=== PATIENT | female | born 1960 | race Caucasian/White ===

== ENCOUNTER 2017-02-12 09:20 | Day surgery (SDC) | payer OTHER ==
--- NOTE | 2017-02-04 13:49 | HP ---
Admitting History and Physical - Primary Care Physician PCP: Malika Saenz - Admission Chief Complaint: Right axillary sebaceous cyst History of Present Illness: 56 year old postmenapausal female with mutiple medical problems presents with 10 year h/o right axillary mass recently noted by her PCP who ordered an US revealing 3.8x2.4x2.3 cm superficial axillary complex mass. She reports recent tenderness but no fever or chills. Mammogram 03/2016 was negative History Source: Patient Limitations to Obtaining History: No Limitations - Past Medical History Cardiovascular: Yes: HTN, Hyperlipdemia, Other (tricuspid regurgitation) Pulmonary: Yes: Asthma, Pulmonary Embolus (DVT with mutiple PE at [facility] 2016), Sleep Apnea ...LMP: 01/29/14 Heme/Onc: Yes: Anemia Endocrine: Yes: Diabetes Mellitus, Other (obesity) - Past Surgical History Past Surgical History: Yes: - Smoking History Smoking history: Never smoked Have you smoked in the past 12 months: No Aproximately how many cigarettes per day: 0 - Alcohol/Substance Use Hx Alcohol Use: No Home Medications - Allergies Allergies/Adverse Reactions: Allergies Allergy/AdvReac Type Severity Reaction Status Date / Time Penicillins Allergy Hives Verified 07/11/16 11:22 - Home Medications Home Medications: Ambulatory Orders Amlodipine Besylate [Norvasc -] 10 mg PO DAILY 07/11/16 Ammonium Lactate Lotion [Lac-Hydrin 12% Lotion -] 1 applic TP BID 07/11/16 Cholecalciferol (Vitamin D3) [Vitamin D3] 1,000 unit PO DAILY 07/11/16 Fenofibrate Nanocrystallized [Tricor] 145 mg PO DAILY 07/11/16 Ferrous Sulfate [Feosol] 325 mg PO DAILY 07/11/16 Glipizide [Glipizide Xl] 10 mg PO BID 07/11/16 Linagliptin [Tradjenta] 5 mg PO DAILY 07/11/16 Losartan Potassium 100 mg PO DAILY 07/11/16 Metformin HCl [Glucophage -] 850 mg PO TID 07/11/16 Montelukast Na [Singulair -] 10 mg PO HS 07/11/16 Ranitidine [Zantac -] 150 mg PO BID 07/11/16 Sertraline HCl [Zoloft] 100 mg PO DAILY 07/11/16 Simvastatin 40 mg PO DAILY 07/11/16 Trazodone HCl [Desyrel -] 50 mg PO HS 07/11/16 Enoxaparin [Lovenox -] 100 mg SQ BID #360 disp.syrin 07/13/16 Family Disease History - Family Disease History Family History: Denies Physical Examination Constitutional: Yes: Well Nourished Breast(s): Yes: Other (symmetrical no breast masses right axillary sebaceous cyst) Problem List - Problems (1) Sebaceous cyst of right axilla Code(s): L72.3 - SEBACEOUS CYST Assessment/Plan excision of right axillary sebaceous cyst
[2017-02-05 10:42] VITALS: BMI 37.4
[2017-02-12] MEDS ORDERED: LIDOCAINE 1%-EPI 1:100,000 30 ML MDV IJ ONE (11:05)
[2017-02-12] MEDS ORDERED: PROPOFOL 20 ML ONE ×2 (11:50→11:56)
[2017-02-12] MEDS ORDERED: ePHEDrine SULFATE 50 MG/1 ML AMPULE ONE (11:50)
[2017-02-12] MEDS ORDERED: SUCCINYLCHOLINE CHLORIDE 200 MG/10 ML VIAL ONE (11:50)
[2017-02-12] MEDS ORDERED: BUPIVACAINE HCL/PF 2.5 MG/ML - 30 ML VIAL IJ ONE (12:00)
[2017-02-12] MEDS ORDERED: ONDANSETRON 4 MG/2 ML VIAL IVPB PRN (12:27)
[2017-02-12] MEDS ORDERED: KETOROLAC TROMETHAMINE 30 MG/1 ML VIAL IVPUSH PRN (12:27)
[2017-02-12] MEDS ORDERED: DEXTROSE 5%-0.45% SALINE 1,000 ML IV SCH (12:30)
[2017-02-12 12:57] VITALS: TEMP 98.2
[2017-02-12 13:38] VITALS: BP 138/62; PULSE 66
--- NOTE | 2017-02-13 14:11 | OP ---
DATE OF OPERATION: 02/12/2017 PREOPERATIVE DIAGNOSIS: Right axillary sebaceous cyst. POSTOPERATIVE DIAGNOSIS: Right axillary sebaceous cyst. PROCEDURE: Excision of right axillary sebaceous cyst. ANESTHESIA: IV sedation with local. ATTENDING SURGEON: Malika Saenz MD ESTIMATED BLOOD LOSS: Minimal. COMPLICATIONS: None. PROCEDURE: Patient was made aware of the risks and benefits of the procedure and consented. She was placed in a supine position. After IV sedation was administered, the operative site was prepped and draped in the usual sterile fashion. Lidocaine 1% mixed with 0.2% bupivacaine with epinephrine in a 1:1 ratio was used for local anesthesia. An elliptical incision was made around the right axillary cyst using blunt and sharp dissection. Tissues were incised around the sebaceous cyst, which was then submitted for permanent sectioning. The wound was copiously irrigated with normal saline. Hemostasis maintained by electrocautery. The wound was closed with deep 3-0 Vicryl followed by a running subcuticular 4-0 Monocryl. Steri-Strips and a sterile bandage were applied. The patient, having tolerated the procedure well, was transferred to the recovery room in excellent condition. MALIKA SAENZ M.D. [id number]
--- NOTE | 2017-02-15 15:25 | PATH ---
Surgical Pathology Report Patient Name: ZOEY FONTANEZ [facility]. Rec. #: [id number] /Age/Gender: 1960 (Age: 56) / F Account: [id number] Location: [facility] Taken: 02/12/2017 Received: 02/12/2017 Reported: 02/15/2017 Physicians: Malika Saenz M.D. Specimen(s) Received RIGHT AXILLARY SEBACEOS CYST Clinical History Right axillary sebaceous cyst Final Diagnosis SEBACEOUS CYST, RIGHT AXILLA, EXCISION: EPIDERMAL INCLUSION (SEBACEOUS) CYST. Electronically Signed Shelli Disla M.D. Gross Description Received in formalin labeled "right axillary sebaceous cyst," is a 4.0 x 3.8 x 2.7 cm irregular, focally disrupted portion of soft tissue which is partially surfaced by a 4.0 x 0.9 cm el, elliptical, unremarkable portion of skin. Sectioning reveals a focally disrupted cyst containing el sebaceous material. Computer Systems Manager sections are submitted in one cassette. /02/13/2017 [facility]02/13/2017
== END 2017-02-12 13:41 | disposition home or self-care (01) ==
LOC: FASU 09:20
PROVIDERS: ATTEND Surgery Surgical Oncology
PROC: 0JBD3ZZ Excision of Right Upper Arm Subcutaneous Tissue and Fascia, Percutaneous Approach (ICD-10-PCS; principal; 2017-02-12 12:04)
DX: L72.3 Sebaceous cyst (principal); I10 Essential (primary) hypertension; I36.1 Nonrheumatic tricuspid (valve) insufficiency; E78.5 Hyperlipidemia, unspecified; E11.9 Type 2 diabetes mellitus without complications; E66.9 Obesity, unspecified; Z68.37 Body mass index [BMI] 37.0-37.9, adult; J45.909 Unspecified asthma, uncomplicated; G47.30 Sleep apnea, unspecified; D64.9 Anemia, unspecified; Z86.718 Personal history of other venous thrombosis and embolism
CPT/HCPCS: 88304-TC

== ENCOUNTER → 2017-04-09 | Emergency (ER) | payer OTHER ==
[2017-04-09 19:27] VITALS: BMI 38.2
--- NOTE | 2017-04-09 20:06 | PDOC ---
History of Present Illness - General History Source: Patient Exam Limitations: No Limitations - History of Present Illness Initial Comments: The patient is a 56 yo F with a past medical history significant for DM, HTN, PE , DVT in L leg, uterine cysts and HPV who presents with vaginal bleeding s/p biopsy earlier today. Patient states she receives biopsies for her HPV and has had 4 in the past with no heavy bleeding. However, patient is now taking Xarelto as per her physicians orders. Patient states she has to change her pad every 15 minutes. Patient denies chest pain, palpitations. Patient notes mild lightheadedness and mild abdominal cramping. Patient denies nausea, vomiting, and diarrhea. PCP: Dr. Vaca Surgical Hx: C section, cholecystectomy <Jael Palencia - Last Filed: 04/09/17 20:27> <Aby Ruth - Last Filed: 04/09/17 22:41> - General Chief Complaint: Vaginal Bleeding Stated Complaint: VAGINAL BLEEDING Time Seen by Provider: 04/09/17 19:35 Past History <Jael Palencia - Last Filed: 04/09/17 20:27> - Past Medical History Anemia: Yes Asthma: Yes Cancer: No Cardiac Disorders: No CVA: No COPD: No CHF: No Dementia: No Diabetes: Yes (NIDDM) GI Disorders: Yes (acid reflux) Disorders: Yes (ONLY ONE KIDNEY LEFT) HTN: Yes Hypercholesterolemia: Yes Liver Disease: No Seizures: No Thyroid Disease: No Other medical history: HPV - Surgical History Abdominal Surgery: Yes Appendectomy: No Cardiac Surgery: No Cholecystectomy: Yes Lung Surgery: No Neurologic Surgery: No Orthopedic Surgery: No - Psycho/Social/Smoking Cessation Hx Anxiety: No Suicidal Ideation: No Smoking Status: No Smoking History: Never smoked Have you smoked in the past 12 months: No Number of Cigarettes Smoked Daily: 0 Information on smoking cessation initiated: No Hx Alcohol Use: No Drug/Substance Use Hx: No Substance Use Type: None Hx Substance Use Treatment: No <Aby Ruth - Last Filed: 04/09/17 22:41> - Past Medical History Allergies/Adverse Reactions: Allergies Allergy/AdvReac Type Severity Reaction Status Date / Time lisinopril Allergy Cough Verified 04/09/17 19:52 Penicillins Allergy Hives Verified 04/09/17 19:27 Home Medications: Ambulatory Orders Amlodipine Besylate [Norvasc -] 10 mg PO DAILY 07/11/16 Glipizide [Glipizide Xl] 10 mg PO BID 07/11/16 Losartan Potassium 100 mg PO DAILY 07/11/16 Metformin HCl [Glucophage -] 850 mg PO TID 07/11/16 Montelukast Na [Singulair -] 10 mg PO HS 07/11/16 Sertraline HCl [Zoloft] 100 mg PO DAILY 07/11/16 Simvastatin 40 mg PO HS 07/11/16 Rivaroxaban [Xarelto -] 20 mg PO DAILY 02/05/17 Albuterol Sulfate Inhaler - [Ventolin HFA Inhaler -] 1 - 2 inh PO Q4H PRN Zolpidem Tartrate [Ambien] 10 mg PO HS PRN 02/12/17 Acetaminophen [Tylenol -] 500 mg PO Q6H 04/09/17 Ferrous Sulfate 325 mg PO DAILY 04/09/17 Review of Systems - Review of Systems Able to Perform ROS?: Yes Comments:: CONSTITUTIONAL: Absent: fever, chills, diaphoresis, generalized weakness, malaise, loss of appetite HEENT: Absent: rhinorrhea, nasal congestion, throat pain, throat swelling, difficulty swallowing, mouth swelling, ear pain, eye pain, visual Changes CARDIOVASCULAR: +lightheadedness Absent: chest pain, syncope, palpitations, irregular heart rate, peripheral edema RESPIRATORY: Absent: cough, shortness of breath, dyspnea with exertion, orthopnea, wheezing, stridor, hemoptysis GASTROINTESTINAL: Absent: abdominal pain, abdominal distension, nausea, vomiting, diarrhea, constipation, melena, hematochezia GENITOURINARY: +vaginal bleeding Absent: dysuria, frequency, urgency, hesitancy, hematuria, flank pain, genital pain MUSCULOSKELETAL: Absent: myalgia, arthralgia, joint swelling SKIN: Absent: rash, itching, pallor NEUROLOGIC: Absent: headache, focal weakness or paresthesia, dizziness, unsteady gait, seizure, mental status changes, bladder or bowel incontinence PSYCHIATRIC: Absent: anxiety, depression, suicidal or homicidal ideation, hallucinations <Jael Palencia - Last Filed: 04/09/17 20:27> *Physical Exam - Vital Signs Last Vital Signs Temp Pulse Resp BP Pulse Ox 98.5 F 68 18 113/65 99 04/09/17 19:12 04/09/17 19:12 04/09/17 19:12 04/09/17 19:12 04/09/17 19:12 - Physical Exam Comments: GENERAL: Well developed, well nourished. Awake and alert. No acute distress. HEENT: Normocephalic, atraumatic. PERRLA, EOMI. No conjunctival pallor. Sclera are non- icteric. Moist mucous membranes. Oropharynx is clear. NECK: Supple. Full ROM. No JVD. Carotid pulses 2+ and symmetric, without bruits. No thyromegaly. No lymphadenopathy. CARDIOVASCULAR: Regular rate and rhythm. No murmurs, rubs, or gallops. Distal pulses are 2+ and symmetric. PULMONARY: No evidence of respiratory distress. Lungs clear to auscultation bilaterally. No wheezing, rales or rhonchi. ABDOMINAL: Obese. Soft. Non-tender. Non-distended. No rebound or guarding. No organomegaly. Normoactive bowel sounds. VAGINAL EXAM: large clots coming from vaginal vault. MUSCULOSKELETAL Normal range of motion at all joints. No bony deformities or tenderness. No CVA tenderness. EXTREMITIES: No cyanosis. No clubbing. No edema. No calf tenderness. SKIN: Warm and dry. Normal capillary refill. No rashes. No jaundice. NEUROLOGICAL: No gross focal neurological deficits. PSYCHIATRIC: Cooperative. Good eye contact. Appropriate mood and affect <Jael Palencia - Last Filed: 04/09/17 20:27> - Vital Signs Last Vital Signs Temp Pulse Resp BP Pulse Ox 98.5 F 68 18 113/65 99 04/09/17 19:12 04/09/17 19:12 04/09/17 19:12 04/09/17 19:12 04/09/17 19:12 <Aby Ruth - Last Filed: 04/09/17 22:41> ED Treatment Course - LABORATORY CBC & Chemistry Diagram: 04/09/17 20:25 04/09/17 17:35 <Aby Ruth - Last Filed: 04/09/17 22:41> Medical Decision Making - Medical Decision Making 04/09/17 22:38 56-year-old female had a uterine biopsy done for HPV earlier today. 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 <Jael Palencia - Last Filed: 04/09/17 20:27> <Aby Ruth - Last Filed: 04/09/17 22:41> Diagnosis at time of Disposition: Postoperative vaginal bleeding following genitourinary procedure - Discharge Dispostion Disposition: HOME Condition at time of disposition: Stable - Referrals Referrals: Júnior Vaca [Primary Care Provider] - Carmelo Clements MD [Staff Physician] - Mary Lewis MD [Staff Physician] - Herb Calle MD [Staff Physician] - - Patient Instructions Printed Discharge Instructions: DI for Vaginal Bleeding Additional Instructions: please follow up with preparation supervisor canning Print Language: SLOVAK
[2017-04-09 20:38] LABS: BASOPHIL 0.9 % (0-2.0); EOSINOPHIL 2.5 % (0-4.5); MCH 27.2 pg (25.7-33.7); MCHC 32.8 g/dl (32.0-36.0); MEAN PLT VOLUME 9.2 fl (7.5-11.1); NEUTROPHILS 38.9 % (42.8-82.8); PLATELET COUNT 225 K/MM3 (134-434); RDW 14.6 % (11.6-15.6); WHITE BLOOD COUNT 7.1 K/mm3 (4.0-10.0)
[2017-04-09 20:52] LABS: INR 1.28 (0.82-1.09); PROTHROMBIN TIME (PATIENT) 14.2 SEC (9.98-11.88)
[2017-04-09 21:14] LABS: ALBUMIN 3.9 g/dl (3.4-5.0); ANION GAP 9 (8-16); CO2 26 mmol/L (21-32); GLUCOSE,RANDOM 152 mg/dL (74-106); SGOT/AST 27 U/L (15-37); SGPT/ALT 31 U/L (12-78)
[2017-04-09 21:15] LABS: ALK PHOS 68 U/L (45-117); BILIRUBIN,TOTAL 0.6 mg/dL (0.2-1.0); TOT PROT 7.8 g/dl (6.4-8.2)
[2017-04-09 22:58] VITALS: BP 142/75; PULSE 52; TEMP 97.9
== END | disposition home or self-care (01) ==
LOC: JER 19:03
DX: N99.820 Postprocedural hemorrhage of a genitourinary system organ or structure following a genitourinary system procedure (principal); I10 Essential (primary) hypertension; E11.9 Type 2 diabetes mellitus without complications; Z79.84 Long term (current) use of oral hypoglycemic drugs; B34.8 Other viral infections of unspecified site; Z86.711 Personal history of pulmonary embolism; Z86.718 Personal history of other venous thrombosis and embolism; Z79.01 Long term (current) use of anticoagulants
CPT/HCPCS: 36415; 80053; 85025; 85610; 86850; 86900; 86901; 99284-25

== ENCOUNTER 2017-12-30 09:33 | Emergency (ER) | payer OTHER ==
[2017-12-30 09:45] VITALS: BMI 37.4
--- NOTE | 2017-12-30 09:53 | PDOC ---
History of Present Illness - General Chief Complaint: Palpitations Stated Complaint: CHEST PAIN Time Seen by Provider: 12/30/17 09:51 - History of Present Illness Initial Comments: 12/30/17 09:54 57 yo F with h/o HTN, NIDDM, DVT L Leg, BL segmental PE who p/w L sided chest pain. Pt. reports acute onset left sided, sharp, shooting, parxosysms of chest pain, with left arm pain. No identifiable triggers, or alleviators. Also endorses subjective fever this AM 0300 with resolution this 0500 AM following Tylenol. Denies heavy lifting, straining, or repetitive movement. Denies N/V, SOB, cough, hemoptysis, pleuritic chest pain, wheezing, abdominal pain, diarrhea , constipation, urinary complaints, lightheadedness, sensory change in ext., weakness, leg swelling. Denies h/o CAD/ND, stent placement, CABG, or abnormal stress test. Does not recall ldr rn. Denies prolonged immobilization, h/o malignancy, recent trauma or surgery, OCP, or hypercoaguable state. Past History - Past Medical History Allergies/Adverse Reactions: Allergies Allergy/AdvReac Type Severity Reaction Status Date / Time lisinopril Allergy Cough Verified 12/30/17 09:40 Penicillins Allergy Hives Verified 12/30/17 09:40 Home Medications: Ambulatory Orders Glipizide [Glipizide Xl] 20 mg PO BID 07/11/16 Losartan Potassium 100 mg PO DAILY 07/11/16 Montelukast Na [Singulair -] 10 mg PO HS 07/11/16 Sertraline HCl [Zoloft] 100 mg PO DAILY 07/11/16 Simvastatin 40 mg PO HS 07/11/16 metFORMIN HCL [Glucophage -] 850 mg PO TID 07/11/16 Rivaroxaban [Xarelto -] 10 mg PO DAILY 02/05/17 Albuterol Sulfate Inhaler - [Ventolin HFA Inhaler -] 1 - 2 inh PO Q4H PRN Zolpidem Tartrate [Ambien] 10 mg PO HS PRN 02/12/17 Acetaminophen [Tylenol -] 500 mg PO Q6H 04/09/17 Ibuprofen [Motrin -] 600 mg PO TID PRN #21 tablet 12/30/17 Pantoprazole Sodium 40 mg PO DAILY 12/30/17 Anemia: Yes Asthma: Yes Cancer: No Cardiac Disorders: Yes (on xarelto) CVA: No COPD: No CHF: No Dementia: No Diabetes: Yes (NIDDM) GI Disorders: Yes (acid reflux) Disorders: Yes (ONLY ONE KIDNEY LEFT) HTN: Yes Hypercholesterolemia: Yes Liver Disease: No Seizures: No Thyroid Disease: No - Surgical History Abdominal Surgery: Yes Appendectomy: No Cardiac Surgery: No Cholecystectomy: Yes Lung Surgery: No Neurologic Surgery: No Orthopedic Surgery: No - Reproductive History Tubal Ligation: No - Suicide/Smoking/Psychosocial Hx Smoking Status: No Smoking History: Never smoked Have you smoked in the past 12 months: No Number of Cigarettes Smoked Daily: 0 Information on smoking cessation initiated: No Hx Alcohol Use: No Drug/Substance Use Hx: No Substance Use Type: None Hx Substance Use Treatment: No Cardiac Specific PMH - Complaint Specific PMHX Pacemaker: No Review of Systems - Review of Systems Comments:: 12/30/17 09:52 GENERAL/CONSTITUTIONAL: No fever or chills. No weakness. HEAD, EYES, EARS, NOSE AND THROAT: No change in vision. No ear pain or discharge. No sore throat. CARDIOVASCULAR+ chest pain. No shortness of breath RESPIRATORY: No cough, wheezing, or hemoptysis. GASTROINTESTINAL: No nausea, vomiting, diarrhea or constipation. GENITOURINARY: No dysuria, frequency, or change in urination. MUSCULOSKELETAL: No joint or muscle swelling or pain. No neck or back pain. SKIN: No rash NEUROLOGIC: No headache, vertigo, loss of consciousness, or change in strength/ sensation. ENDOCRINE: No increased thirst. No abnormal weight change HEMATOLOGIC/LYMPHATIC: No anemia, easy bleeding, or history of blood clots. ALLERGIC/IMMUNOLOGIC: No hives or skin allergy. *Physical Exam - Vital Signs Last Vital Signs Temp Pulse Resp BP Pulse Ox 98 F 60 18 119/68 100 12/30/17 16:34 12/30/17 16:34 12/30/17 16:34 12/30/17 16:34 12/30/17 16:34 - Physical Exam Comments: 12/30/17 09:52 GENERAL: Awake, alert, and fully oriented, in no acute distress HEAD: No signs of trauma, normocephalic, atraumatic EYES: PERRLA, EOMI, sclera anicteric, conjunctiva clear ENT: Hearing grossly normal, nares patent, oropharynx clear without exudates. Moist mucosa NECK: Normal ROM, supple, no lymphadenopathy, JVD, or masses LUNGS: No distress, speaks full sentences, clear to auscultation bilaterally HEART: Reproducible chest wall ttp at ant 3rd-4th midclavicular region. Regular rate and rhythm, normal S1 and S2, no murmurs, rubs or gallops, peripheral pulses normal and equal bilaterally. EXTREMITIES : Normal inspection, Normal range of motion, no edema. No clubbing or cyanosis. SKIN: Warm, Dry, normal turgor, no rashes or lesions noted ED Treatment Course - LABORATORY CBC & Chemistry Diagram: 12/30/17 10:15 12/30/17 10:40 - ADDITIONAL ORDERS Additional order review: Laboratory Results 12/30/17 12/30/17 12/30/17 14:40 10:49 10:40 PT with INR INR Sodium 139 Potassium 4.1 Chloride 106 Carbon Dioxide 26 Anion Gap 7 L BUN 9 Creatinine 0.9 Creat Clearance w eGFR > 60 Random Glucose 223 H Calcium 8.4 L Total Bilirubin 0.3 D AST 33 ALT 31 Alkaline Phosphatase 67 Creatine Kinase Troponin I < 0.02 Total Protein 7.6 Albumin 3.7 Urine Color Ltyellow Urine Appearance Clear Urine pH 5.0 D Ur Specific [place] 1.011 Urine Protein 2+ H Urine Glucose (UA) 1+ H Urine Ketones Negative Urine Blood Negative Urine Nitrite Negative Urine Bilirubin Negative Urine Urobilinogen Negative Ur Leukocyte Esterase Negative Urine WBC (Auto) 1 Urine RBC (Auto) <1 Ur Epithelial Cells Rare Urine Mucus Rare 12/30/17 12/30/17 10:40 10:40 PT with INR 15.80 H INR 1.40 H Sodium Potassium Chloride Carbon Dioxide Anion Gap BUN Creatinine Creat Clearance w eGFR Random Glucose Calcium Total Bilirubin AST ALT Alkaline Phosphatase Creatine Kinase 79 Troponin I < 0.02 Total Protein Albumin Urine Color Urine Appearance Urine pH Ur Specific [place] Urine Protein Urine Glucose (UA) Urine Ketones Urine Blood Urine Nitrite Urine Bilirubin Urine Urobilinogen Ur Leukocyte Esterase Urine WBC (Auto) Urine RBC (Auto) Ur Epithelial Cells Urine Mucus 12/30/17 10:15 RBC 4.23 MCV 84.1 MCHC 33.2 RDW 14.2 MPV 9.2 Neutrophils % 42.6 L Lymphocytes % 47.5 H Monocytes % 6.7 Eosinophils % 2.3 Basophils % 0.9 - RADIOLOGY Radiology Studies Ordered: Category Date Time Status CHEST CTA [CT] Stat CT Scan 12/30/17 10:15 Completed CXRPORT [CHEST X-RAY PORTABLE*] [RAD] Stat Radiology 12/30/17 10:15 Completed - Medications Given in the ED: ED Medications Discontinued Medications Generic Name Dose Route Start Last Admin Trade Name Freq PRN Reason Stop Dose Admin Aspirin 162 mg 12/30/17 10:15 12/30/17 10:41 Asa - PO 12/30/17 10:16 Not Given ONCE ONE Sodium Chloride 1,000 mls @ 1,000 mls/hr 12/30/17 10:16 12/30/17 10:41 Normal Saline - IV 12/30/17 11:15 1,000 mls/hr ASDIR STA Administration Ketorolac Tromethamine 15 mg 12/30/17 15:07 12/30/17 15:40 Toradol Injection - IVPUSH 12/30/17 15:08 15 mg ONCE ONE Administration Medical Decision Making - Medical Decision Making 12/30/17 10:17 57 yo F with h/o HTN, NIDDM, DVT L Leg, BL segmental PE who p/w acute onset sharp, shooting, parxosysms of left sided, chest pain, with radiation to left arm pain. No identifiable triggers, or alleviators. + subjective fever. Denies N/V, SOB, cough, hemoptysis, pleuritic chest pain, wheezing, abdominal pain, diarrhea, constipation, urinary complaints, lightheadedness, sensory change in ext., weakness, leg swelling. Denies h/o CAD/ND, stent placement, CABG, or abnormal stress test. Physical exam noteable for ttp at 3rd-4th midclavicular space. Sinus rafael ~50's. Low risk PE weils criteria, but pt. with h/o similiar presentation and subsequent segmental PE's. Will consider CTA imaging. ACS/ND r/ o. Differential also includes PNA. Pain consistent with musculoskelteal etiology. Possible costochondritis. ED Course: CBC, CMP, Cardiac Pr EKG CXR, CTA UA 12/30/17 11:23 CXR: No acute pathology EKG: Sinus bradycardia with absent YULI, STD, or TWI. 12/30/17 11:25 CBC, CMP: Unremarkable UA: Neg 12/30/17 13:11 Trop: Neg 12/30/17 14:42 CTA: Unremakarkable. Absent evidence of PE. Repeat trop. 12/30/17 14:57 12/30/17 16:22 Repeat trop: Neg 12/30/17 16:52 Pt. stable for d/c with return precautions. Advised to f/u with cards. 12/30/17 16:53 Ibruprofen sent to pharm. *DC/Admit/Observation/Transfer Diagnosis at time of Disposition: Palpitations, Chest wall pain - Discharge Dispostion Disposition: HOME Condition at time of disposition: Stable - Prescriptions Prescriptions: Ibuprofen [Motrin -] 600 mg PO TID PRN #21 tablet PRN Reason: Pain - Referrals Referrals: Júnior Vaca [Primary Care Provider] - Morro Harding MD [Staff Physician] - - Patient Instructions Printed Discharge Instructions: DI for Atypical Chest Pain, DI for Palpitations Additional Instructions: Please return to the emergency department with any new or worsening symptoms or concerns. Please follow up with your primary care physician within 72 hours. Please f/u with cardiology within one week. Return to ED if you experience worsening chest pain, shortness of breath, or palpitations. Print Language: ESTONIAN - Post Discharge Activity Forms/Work/School Notes: Back to Work - Attestations Physician Attestion: 12/30/17 09:52 I attest to the information provided in this note.
[2017-12-30] MEDS ORDERED: ASPIRIN 81 MG CHEWABLE TABLETS PO ONE (10:15)
[2017-12-30] MEDS ORDERED: SODIUM CHLORIDE 1,000 ML IV STA (10:16)
[2017-12-30] MEDS ORDERED: ASPIRIN 81 MG CHEWABLE TABLETS ONE (10:29)
--- NOTE | 2017-12-30 10:46 | PDOC ---
Attending Attestation - [facility] HPI: 12/30/17 10:46 The patient is a 57 year old female, with a significant past medical history of hypertension, diabetes mellitus, DVT left leg, pulmonary embolism, who presents to the emergency department with, a sudden onset of left sided non pleuritic chest pain beginning approx. 4 hours ago. The patient states the left sided chest pain began this morning around 6 am and describes the chest pain as a sharp pain with an associated diffuse crampy left arm pain. The patient also states she had a subjective fever last night at 3 am that resolved around 5 am with Tylenol. The patient states her symptoms do not feel similar to her previous pulmonary embolism as she states the pain/ leg swelling was much worse when she was diagnosed with the PE. 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 Perdue with her last appointment 3 months ago and her next scheduled appointment on January 14. The patient reports she is complaint with her Xarelto. She denies any recent palpitations or shortness of breath. She denies any recent swelling. She denies recent fevers, chills, headache or dizziness. She denies recent nausea, vomit, diarrhea or constipation. She denies recent dysuria, frequency, urgency or hematuria. Allergies: Lisinopril, Penicillins Primary Care Physician: Dr. Júnior Vaca Infantry Senior Sergeant: Dr. Perdue Documentation prepared by Miguel Sprague, acting as biomedical engineering aide for Coni Kaplan DO. - Physicial Exam PE: 12/30/17 10:47 Constitutional: Awake, alert, oriented. No acute distress. Head: Normocephalic. Atraumatic Eyes: PERRL. EOMI. Conjunctivae are not pale. ENT: Mucous membranes are moist and intact. Posterior pharynx without exudates or erythema. Uvula midline. Neck: Supple. Full ROM. No lymphadenopathy. Cardiovascular: +Bradycardia. Regular rhythm. S1, S2 regular. Distal pulses are 2+ and symmetric. Chest: +Anterior chest wall tenderness reproducible with palpation. Pulmonary/Chest: No evidence of respiratory distress. Clear to auscultation bilaterally No wheezing, rales or rhonchi. Patient is speaking in full sentences. Abdominal: Soft and non-distended. There is no tenderness. No rebound, guarding or rigidity. No organomegaly. No palpable masses. Back: No CVA tenderness. Musculoskeletal: +Left calf tenderness reproducible with palpation. No edema. No cyanosis. No clubbing. Full range of motion in all extremities. Radial/ pedal pulses are intact and 2+ bilaterally Skin: Skin is warm and dry. No petechiae. No purpura. Neurological: Alert and oriented to person, place, and time. Cranial nerves II -XII are grossly intact. Normal speech. Strength is grossly symmetric. No sensory deficits. Psychiatric: Good eye contact. Normal interaction, affect and behavior. <Miguel Sprague - Last Filed: 12/30/17 10:46> - Resident Resident Name: Grzegorz Da Silva - Medical Decision Making 12/30/17 10:39 a/p: 57yo female with anterior chest wall pain that radiates down the L arm -CAD risk factors -also hx of PE - on xarelto, which she states she is compliant with taking -ekg nonacute -will check labs, trop, PE study given hx -will monitor and reassess -states pain is less than when she had the PE in 2016. 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 will give work note discussed all reasons to return to the ED and need for follow up with PMD. Answered all questions. <Coni Kaplan - Last Filed: 12/30/17 16:16> Discharge Disposition - Discharge Dispostion Last Admission D/C Date: 07/15/16 Admit: No <Coni Kaplan - Last Filed: 12/30/17 16:16> - Diagnosis Palpitations, Chest wall pain - Discharge Dispostion Disposition: HOME Condition at time of disposition: Stable - Prescriptions Prescriptions: Ibuprofen [Motrin -] 600 mg PO TID PRN #21 tablet PRN Reason: Pain - Referrals Referrals: Júnior Vaca [Primary Care Provider] - Morro Harding MD [Staff Physician] - - Patient Instructions Printed Discharge Instructions: DI for Palpitations, DI for Atypical Chest Pain Additional Instructions: Please return to the emergency department with any new or worsening symptoms or concerns. Please follow up with your primary care physician within 72 hours. Please f/u with cardiology within one week. Return to ED if you experience worsening chest pain, shortness of breath, or palpitations. - Post Discharge Activity Work/School Note: Back to Work Heart Score/ECG Review - ECG Intrepretation Comment:: 12/30/17 11:40 sinus rafael at 54, nl axis, nl interval, no acute st/t wave findings <Coni Kaplan - Last Filed: 12/30/17 16:16>
[2017-12-30 10:51] LABS: BASO % 0.9 % (0-2.0); EOS % 2.3 % (0-4.5); HEMATOCRIT 35.6 % (32.4-45.2); HEMOGLOBIN 11.8 GM/dL (10.7-15.3); LYMPH % 47.5 % (8-40); MCH 27.9 pg (25.7-33.7); MCHC 33.2 g/dl (32.0-36.0); MEAN CELL VOLUME 84.1 fl (80-96); MEAN PLT VOLUME 9.2 fl (7.5-11.1); MONO % 6.7 % (3.8-10.2); NEUT % 42.6 % (42.8-82.8); PLATELET COUNT 235 K/MM3 (134-434); RBC 4.23 M/mm3 (3.60-5.2); RDW 14.2 % (11.6-15.6); WHITE BLOOD COUNT 5.7 K/mm3 (4.0-10.0)
--- NOTE | 2017-12-30 11:04 | EKG ---
Test Reason : Blood Pressure : / mmHG Vent. Rate : 054 BPM Atrial Rate : 054 BPM P-R Int : 150 ms QRS Dur : 096 ms QT Int : 454 ms P-R-T Axes : 042 020 018 degrees QTc Int : 430 ms SINUS BRADYCARDIA OTHERWISE NORMAL ECG WHEN COMPARED WITH ECG OF 11-JUL-2016 17:07, NO SIGNIFICANT CHANGE WAS FOUND Confirmed by MORENO BECKFORD MD ([id number]) on 12/30/2017 11:03:40 AM Referred By: Confirmed By:MORENO BECKFORD MD
[2017-12-30 11:06] LABS: INR 1.4 (0.82-1.09); PROTHROMBIN TIME (PATIENT) 15.8 SEC (9.98-11.88)
[2017-12-30 11:10] LABS: ALBUMIN 3.7 g/dl (3.4-5.0); ANION GAP 7 (8-16); BLOOD UREA NITROGEN 9 mg/dL (7-18); CALCIUM 8.4 mg/dL (8.5-10.1); CHLORIDE 106 mmol/L (98-107); CO2 26 mmol/L (21-32); GLUCOSE,RANDOM 223 mg/dL (74-106); POTASSIUM 4.1 mmol/L (3.5-5.1); SGPT/ALT 31 U/L (12-78); SODIUM 139 mmol/L (136-145)
[2017-12-30 11:12] LABS: ALK PHOS 67 U/L (45-117); BILIRUBIN,TOTAL 0.3 mg/dL (0.2-1.0); CREATININE 0.9 mg/dL (0.55-1.02); SGOT/AST 33 U/L (15-37); TOT PROT 7.6 g/dl (6.4-8.2)
[2017-12-30 11:18] LABS: URINE APPEARANCE CLEAR; URINE BILIRUBIN NEGATIVE (NEGATIVE); URINE BLOOD NEGATIVE (NEGATIVE); URINE COLOR LTYELLOW; URINE GLUCOSE (UA) 1+ (NEGATIVE); URINE KETONE NEGATIVE (NEGATIVE); URINE LEUK ESTERASE NEGATIVE (NEGATIVE); URINE NITRITE NEGATIVE (NEGATIVE); URINE UROBILINOGEN NEGATIVE mg/dL (0.2-1.0)
[2017-12-30 11:21] LABS: URINE PROTEIN 2+ (NEGATIVE)
[2017-12-30 11:29] LABS: EPI CELLS RARE /HPF (FEW); URINE MUCUS RARE
[2017-12-30] MEDS ORDERED: KETOROLAC TROMETHAMINE 15 MG/ML VIAL IVPUSH ONE (15:07)
[2017-12-30] MEDS ORDERED: KETOROLAC TROMETHAMINE 15 MG/ML VIAL ONE (15:35)
[2017-12-30 16:35] VITALS: BP 119/68; PULSE 60; TEMP 98
== END 2017-12-30 16:35 | disposition home or self-care (01) ==
LOC: JER 09:33
PROC: 3E0337Z Introduction of Electrolytic and Water Balance Substance into Peripheral Vein, Percutaneous Approach (ICD-10-PCS; principal; 2017-12-30)
PROC: 3E0333Z Introduction of Anti-inflammatory into Peripheral Vein, Percutaneous Approach (ICD-10-PCS; 2017-12-30)
DX: R07.89 Other chest pain (principal); R00.2 Palpitations; I10 Essential (primary) hypertension; E11.9 Type 2 diabetes mellitus without complications; Z79.84 Long term (current) use of oral hypoglycemic drugs; E78.00 Pure hypercholesterolemia, unspecified
CPT/HCPCS: 36415; 71045-TC-FY; 71275-TC; 80053; 81003; 81015; 82550; 84484; 85025; 85610; 93005; 93010; 99284-25; J7030

== ENCOUNTER 2018-10-11 19:38 | Emergency (ER) | payer OTHER ==
[2018-10-11 19:44] VITALS: BP 128/74; PULSE 65; TEMP 98.2; BMI 37.9
[2018-10-11] MEDS ORDERED: IBUPROFEN 600 MG TABLET (FP) PO ONE ×2 (22:01→22:17)
--- NOTE | 2018-10-11 22:01 | PDOC ---
History of Present Illness - General Chief Complaint: Blood Pressure Problem Stated Complaint: HIGH BLOOD PRESSURE Time Seen by Provider: 10/11/18 21:38 History Source: Patient, Old Records Exam Limitations: No Limitations - History of Present Illness Initial Comments: 10/11/18 21:56 HISTORY OF PRESENT ILLNESS: This is a 58-year-old woman past medical history of hypertension, hyperlipidemia, NIDDM, NANCY and insomnia who presents emergency department for evaluation of global headache for the past 3 days. Patient reports pain is a throbbing sensation and rates it 5/10. She states the pain is intermittent and is unable to identify any aggravating or alleviating factors. Patient has been taking [id number] Tylenol with minimal relief of symptoms. Patient reports it prevents her from sleeping throughout the nighttime. Patient reports her blood pressure at home is been 170/110 but is 128 /74 here. She denies any blurry vision, dizziness, ataxia, chest pain, shortness of breath, abdominal pain, nausea, vomiting. No recent travel or sick contacts. PAST MEDICAL HISTORY: see HPI SURGICAL HISTORY: Denies ALLERGIES: No known drug allergies REVIEW OF SYSTEMS General/Constitutional: Denies fever or chills. Denies weakness, weight change. HEENT: Denies change in vision. Denies ear pain or discharge. Denies sore throat. Cardiovascular: Denies chest pain or shortness of breath. Respiratory: Denies cough, wheezing, or hemoptysis. Gastrointestinal: Denies nausea, vomiting, diarrhea or constipation. Denies rectal bleeding. Genitourinary: Denies dysuria, frequency, or change in urination. Musculoskeletal: Denies joint or muscle swelling or pain. Denies neck or back pain. Skin and breasts: Denies rash or easy bruising. Neurologic: Global headache. Denies vertigo, loss of consciousness, or loss of sensation. Psychiatric: Denies depression or anxiety. Endocrine: Denies increased thirst. Denies abnormal weight change. Hematologic/Lymphatic: Denies anemia, easy bleeding, or history of blood clots. Allergic/Immunologic: Denies hives or skin allergy. Denies latex allergy. PHYSICAL EXAM General Appearance: Well-appearing, appropriately dressed. No apparent distress , no intoxication. HEENT: EOMI, PERRLA, normal ENT inspection, normal voice, TMs normal, pharynx normal. No conjunctival pallor. No photophobia, scleral icterus. Neck: Supple. Trachea midline. No tenderness, rigidity, carotid bruit, stridor , lymphadenopathy, or thyromegaly. Respiratory/Chest: Lungs CTAB. No shortness of breath, chest tenderness, respiratory distress, accessory muscle use. No crackles, rales, rhonchi, stridor , wheezing, dullness Cardiovascular: RRR. S1, S2. No JVD, murmur, bradycardia, tachycardia. Musculoskeletal/Extremities: Normal inspection. FROM of all extremities, normal capillary refill. Pelvis Stable. No CVA tenderness. No tenderness to extremities, pedal edema, swelling, erythema or deformity. Integumentary: Appropriate color, dry, warm. No cyanosis, erythema, jaundice or rash Neurologic: fan blade aligner II-XII intact. Fully oriented, alert. Appropriate mood/affect. Motor strength 5/5. No appreciable EOM palsy, facial droop or sensory deficit. -Brennen. -Malika Past History - Past Medical History Allergies/Adverse Reactions: Allergies Allergy/AdvReac Type Severity Reaction Status Date / Time lisinopril Allergy Cough Verified 10/11/18 19:44 Penicillins Allergy Hives Verified 10/11/18 19:44 Home Medications: Ambulatory Orders Glipizide [Glipizide Xl] 20 mg PO BID 07/11/16 Losartan Potassium 100 mg PO DAILY 07/11/16 Montelukast Na [Singulair -] 10 mg PO HS 07/11/16 Sertraline HCl [Zoloft] 100 mg PO DAILY 07/11/16 Simvastatin 40 mg PO HS 07/11/16 metFORMIN HCL [Glucophage -] 850 mg PO TID 07/11/16 Rivaroxaban [Xarelto -] 10 mg PO DAILY 02/05/17 Albuterol Sulfate Inhaler - [Ventolin HFA Inhaler -] 1 - 2 inh PO Q4H PRN Zolpidem Tartrate [Ambien] 10 mg PO HS PRN 02/12/17 Acetaminophen [Tylenol -] 500 mg PO Q6H 04/09/17 Ibuprofen [Motrin -] 600 mg PO TID PRN #21 tablet 12/30/17 Pantoprazole Sodium 40 mg PO DAILY 12/30/17 Anemia: Yes Asthma: Yes Cancer: No Cardiac Disorders: Yes (on xarelto) CVA: No COPD: No CHF: No Dementia: No Diabetes: Yes (NIDDM) GI Disorders: Yes (acid reflux) Disorders: Yes (ONLY ONE KIDNEY LEFT) HTN: Yes Hypercholesterolemia: Yes Liver Disease: No Seizures: No Thyroid Disease: No - Surgical History Abdominal Surgery: Yes Appendectomy: No Cardiac Surgery: No Cholecystectomy: Yes Lung Surgery: No Neurologic Surgery: No Orthopedic Surgery: No - Reproductive History Tubal Ligation: No - Suicide/Smoking/Psychosocial Hx Smoking Status: No Smoking History: Never smoked Have you smoked in the past 12 months: No Number of Cigarettes Smoked Daily: 0 Hx Alcohol Use: No Drug/Substance Use Hx: No Substance Use Type: None Hx Substance Use Treatment: No *Physical Exam - Vital Signs Last Vital Signs Temp Pulse Resp BP Pulse Ox 98.2 F 65 18 128/74 97 10/11/18 19:41 10/11/18 19:41 10/11/18 19:41 10/11/18 19:41 10/11/18 19:41 Moderate Sedation - Procedure Monitoring Vital Signs: Procedure Monitoring Vital Signs Temperature 98.2 F 10/11/18 19:41 Pulse Rate 65 10/11/18 19:41 Respiratory Rate 18 10/11/18 19:41 Blood Pressure 128/74 10/11/18 19:41 O2 Sat by Pulse Oximetry (%) 97 10/11/18 19:41 Medical Decision Making - Medical Decision Making 10/11/18 22:00 A/P: 58 old female with headache for 3 days Normotensive here Neurologic exam is within normal limits I will defer imaging at this time his pain is rated 5/10 and patient has normal neurologic exam. Motrin 600 mg orally now Reassess 10/11/18 22:32 Pain is 0/10 after receiving Motrin. I'll discharge the patient home to follow- up with her primary doctor as needed. *DC/Admit/Observation/Transfer Diagnosis at time of Disposition: Tension type headache, unspecified Qualifiers: Headache chronicity pattern: acute headache Intractability: not intractable Qualified Code(s): G44.209 - Tension-type headache, unspecified, not intractable - Discharge Dispostion Disposition: HOME Condition at time of disposition: Stable Decision to Admit order: No - Referrals - Patient Instructions Additional Instructions: Take Tylenol or Motrin as needed for headaches. Follow embalmer assistant's instructions for correct dosage. Keep a diary of all food you eat and activities performed prior to headaches. Make an appointment with her primary doctor for reevaluation within the next week. Return to emergency department for worsening headache, blurry vision, dizziness , nausea, vomiting or any other concerns. Thank you very much for for choosing us to provide emergent health care needs. - Post Discharge Activity
== END 2018-10-11 22:50 | disposition home or self-care (01) ==
LOC: JER 19:38
DX: G44.209 Tension-type headache, unspecified, not intractable (principal); I10 Essential (primary) hypertension; E78.5 Hyperlipidemia, unspecified; E11.9 Type 2 diabetes mellitus without complications; Z79.84 Long term (current) use of oral hypoglycemic drugs; G47.00 Insomnia, unspecified; G47.33 Obstructive sleep apnea (adult) (pediatric); K21.9 Gastro-esophageal reflux disease without esophagitis; D64.9 Anemia, unspecified; J45.909 Unspecified asthma, uncomplicated
CPT/HCPCS: 99282-25

== ENCOUNTER 2019-09-02 18:29 | Inpatient (IN) | payer OTHER ==
--- NOTE | 2019-09-02 19:05 | PDOC ---
History of Present Illness - General Chief Complaint: Injury Stated Complaint: FALL Time Seen by Provider: 09/02/19 18:43 Past History - Past Medical History Allergies/Adverse Reactions: Allergies Allergy/AdvReac Type Severity Reaction Status Date / Time lisinopril Allergy Cough Verified 09/02/19 18:32 Penicillins Allergy Hives Verified 09/02/19 18:32 Home Medications: Ambulatory Orders Glipizide [Glipizide Xl] 20 mg PO BID 07/11/16 Losartan Potassium 100 mg PO DAILY 07/11/16 Montelukast Na [Singulair -] 10 mg PO HS 07/11/16 Sertraline HCl [Zoloft] 100 mg PO DAILY 07/11/16 Simvastatin 40 mg PO HS 07/11/16 metFORMIN HCL [Glucophage -] 850 mg PO TID 07/11/16 Rivaroxaban [Xarelto -] 10 mg PO DAILY 02/05/17 Albuterol Sulfate Inhaler - [Ventolin HFA Inhaler -] 1 - 2 inh PO Q4H PRN Acetaminophen [Tylenol -] 500 mg PO Q6H 04/09/17 Anemia: Yes Asthma: Yes Cancer: No Cardiac Disorders: Yes (on xarelto) CVA: No COPD: No CHF: No Dementia: No Diabetes: Yes (NIDDM) GI Disorders: Yes (acid reflux) Disorders: Yes (ONLY ONE KIDNEY LEFT) HTN: Yes Hypercholesterolemia: Yes Liver Disease: No Seizures: No Thyroid Disease: No - Surgical History Abdominal Surgery: Yes Appendectomy: No Cardiac Surgery: No Cholecystectomy: Yes Lung Surgery: No Neurologic Surgery: No Orthopedic Surgery: No - Reproductive History Tubal Ligation: No - Psycho Social/Smoking Cessation Hx Smoking Status: No Smoking History: Never smoked Have you smoked in the past 12 months: No Number of Cigarettes Smoked Daily: 0 Hx Alcohol Use: No Drug/Substance Use Hx: No Substance Use Type: None Hx Substance Use Treatment: No *Physical Exam - Vital Signs Last Vital Signs Temp Pulse Resp BP Pulse Ox 98.4 F 92 H 16 154/74 99 09/02/19 18:32 09/02/19 18:32 09/02/19 18:32 09/02/19 18:32 09/02/19 18:32 ED Treatment Course - LABORATORY CBC & Chemistry Diagram: 09/03/19 09:05 09/03/19 06:00 Medical Decision Making - Medical Decision Making 09/02/19 19:28 HPI: 59yo F hx HTN, DM, HLD, PE, DVT LLE, asthma, vertigo, 1 kidney, and obesity on Xeralta BIBA c/o R knee pain s/p mechanical fall from standing. At 1730 today, pt was walking on street and curb was broken so tripped and fell forward landing on R knee on concrete, immediate excruciating pain, worse with movement , tolerable now that splint's in place (by EMS), no pain meds given. Unable to stand or bear weight. States entire R leg feels like it's asleep. Denies swelling or cuts. Denies other injuries, head injury, LOC, prodromal CP or palpitations or lightheadedness/dizziness or vertigo, seizure like activity, incontinence, tongue-biting, headache, nausea, vomiting, fever, chills, SOB, CP , lightheadedness, back pain, neck pain, hip pain, abdominal pain, diarrhea, constipation, blood in stool, weakness. Pt was in [place] prior to fall. ROS: Constitutional: Negative for chills, fever, fatigue, diaphoresis. HENT: Negative for sore throat, rhinorrhea, congestion. Eyes: Negative for visual disturbance. Respiratory: Negative for shortness of breath, cough, and wheezing. Cardiovascular: Negative for chest pain, palpitations, and leg swelling. Gastrointestinal: Negative for abdominal pain, blood in stool, constipation, diarrhea, nausea, and vomiting. Genitourinary: Negative for dysuria, flank pain, and hematuria. Musculoskeletal: Positive for R knee pain. Negative for myalgias, back pain, and neck pain. Skin: Negative for rash. Neurological: Positive for R leg feeling asleep. Negative for light-headedness, dizziness, vertigo, syncope, weakness, numbness and headaches. Psychiatric/Behavioral: Negative for behavioral problems and confusion. PE: Gen: Alert, NAD, anxious and uncomfortable-appearing. HEENT: PERRL, EOMI, MMM, NCAT. No conjunctival pallor. Sclera are non-icteric. Oropharynx is clear. CV: Regular rate and rhythm. No murmurs, rubs, or gallops. PULM: No resp distress. CTAB, no wheezes, rales, or rhonchi. ABD: protuberant, soft, NT/ND, no rebound tenderness or guarding, no CVA tenderness. BACK: No TTP of c/t/l-spine. No step-offs or deformities. MSK: No bony deformities. 2+ pulses in all extremities. Pelvis stable, no TTP or pelvis or hips. RLE: EMS splint in place. No bony or soft tissue deformities. Full ROM of ankle , wiggling toes appropriately, refuses to move knee or hip 2/2 knee pain. Diffuse severe TTP of knee, slight TTP just proximal and distal to knee. 2+ pulses. <2 sec cap refill. Sensation to light touch intact throughout. Compartments soft and compressible. NEURO: AAOx3. PERRL. CN 2-12 intact. 5/5 strength in all extremities. Sensation to light touch intact in all extremities. EXTREMITIES: No cyanosis. No clubbing. No edema. No calf tenderness. PSYCH: Normal mood and thought pattern. SKIN: Warm and dry. Normal capillary refill. No rashes. No jaundice. MDM: 59yo F hx HTN, DM, HLD, PE, DVT LLE, asthma, vertigo, 1 kidney, and obesity on Xeralta BIBA with R knee pain s/p mechanical fall from standing at 1730. Hemodynamically stable, afebrile, neurologically intact, TTP diffuse R knee, reduced ROM of R knee and hip 2/2 pain in knee, RLE neurovascularly intact. No head injury, neurologic deficit, LOC, or c-spine pain/tenderness concerning for ICH or c-spine injury. No injuries, pain, or signs of trauma other than RLE. No e/o neurovascular compromise or compartment syndrome. Purely mechanical fall - no syncope or seizure-like activity. -CBC,CMP,Coags,T&S -XR R femur, R knee, R tib/fib, chest -Pain management: 4 Morphine -Dispo: pending w/u 09/02/19 23:09 Labs reviewed. XRs reviewed - concern for tibial plateau fx. Order CT. CT reviewed - comminuted fx of R tibial plateau. Dr Kaplan consulted ortho and admitted pt. Pending EKG. Discharge - Discharge Information Problems reviewed: Yes Clinical Impression/Diagnosis: Tibial plateau fracture, right Condition: Fair - Follow up/Referral - Patient Discharge Instructions - Post Discharge Activity
[2019-09-02] MEDS ORDERED: morphine CARPU-JECT 4 MG/1 ML DISP.SYRIN IVPUSH ONE ×2 (19:14→20:55)
[2019-09-02] MEDS ORDERED: morphine SULFATE 4 MG/ML VIAL ONE ×2 (19:36→21:08)
[2019-09-02 19:39] LABS: BASO % 0.7 % (0-2.0); EOS % 1.2 % (0-4.5); HEMATOCRIT 32.7 % (32.4-45.2); HEMOGLOBIN 10.6 GM/dL (10.7-15.3); LYMPH % 24.8 % (8-40); MCH 27.7 pg (25.7-33.7); MCHC 32.4 g/dl (32.0-36.0); MEAN CELL VOLUME 85.5 fl (80-96); MEAN PLT VOLUME 8.3 fl (7.5-11.1); MONO % 6.2 % (3.8-10.2); NEUT % 67.1 % (42.8-82.8); PLATELET COUNT 248 K/MM3 (134-434); RBC 3.82 M/mm3 (3.60-5.2); RDW 14.5 % (11.6-15.6); WHITE BLOOD COUNT 9.4 K/mm3 (4.0-10.0)
[2019-09-02 19:55] LABS: INR 1.18 (0.83-1.09)
[2019-09-02 20:06] LABS: ALBUMIN 3.6 g/dl (3.4-5.0); BILIRUBIN,TOTAL 0.3 mg/dL (0.2-1); BLOOD UREA NITROGEN 16.4 mg/dL (7-18); CALCIUM 9.7 mg/dL (8.5-10.1); CREATININE 1.1 mg/dL (0.55-1.3); POTASSIUM 4.7 mmol/L (3.5-5.1); TOT PROT 7.4 g/dl (6.4-8.2)
[2019-09-02] MEDS ORDERED: SODIUM CHLORIDE 0.9% 500 ML INFUS.BAG IV ONE (20:20)
--- NOTE | 2019-09-02 20:36 | PDOC ---
Documentation entered by Brittany Desir SCRIBE, acting as scribe for Coni Kaplan DO. Coni Kaplan DO: This documentation has been prepared by the Karlee nair Xhesika, SCRIBE, under my direction and personally reviewed by me in its entirety. I confirm that the documentation accurately reflects all work, treatment, procedures, and medical decision making performed by me. Attending Attestation - Resident Resident Name: Stella Ayon - ED Attending Attestation I have performed the following: I have examined & evaluated the patient, The case was reviewed & discussed with the resident, I agree w/resident's findings & plan, Exceptions are as noted - HPI HPI: 09/02/19 19:20 The patient is a 59 year old female, with a significant past medical history of HTN, DM, HLD, PE, DVT LLE, asthma, vertigo, 1 kidney, and obesity on Xeralta, who presents to the emergency department BIBA with R knee pain s/p mechanical fall. The patient notes she was walking on the street, the curb was broken, missed a step and landed on her R knee. Pt denies hitting head or LOC. Patient notes she is in excruciating pain that is worsened with movements. Pt's Knee is in a split that was placed by EMS. Patient denies chest pain or shortness of breath. She denies recent fevers, chills, headache, dizziness, nausea, vomit, diarrhea or constipation. She denies recent dysuria, frequency, urgency or hematuria. Allergies: Lisinopril, Penicillins Primary Care Physician: Dr. Rosalio Pate Airport Tower Controller: Dr. Perdue - Physicial Exam PE: 09/02/19 20:04 GENERAL: Awake, alert, and fully oriented, in no acute distress HEAD: No signs of trauma EYES: PERRLA, EOMI, sclera anicteric, conjunctiva clear ENT: Auricles normal inspection, hearing grossly normal, nares patent, oropharynx clear without exudates. Moist mucosa NECK: Normal ROM, supple, no lymphadenopathy, JVD, or masses LUNGS: Breath sounds equal, clear to auscultation bilaterally. No wheezes, and no crackles HEART: +tachy. no murmurs, rubs or gallops ABDOMEN: +obese. Soft, nontender, normoactive bowel sounds. No guarding, no rebound. No masses EXTREMITIES: + Splint on by EMS. +TTP to proximal tibia and insertion of tendon. + tenderness knee cap to medial and lateral distal femur. No clubbing or cyanosis. No cords, erythema. No sudhakar or soft tissue deformities. NEUROLOGICAL: Cranial nerves II through XII grossly intact. Normal speech SKIN: Warm, Dry, normal turgor, no rashes or lesions noted - Medical Decision Making 09/02/19 20:35 I, Dr. Coni Kaplan, DO, attest that this document has been prepared under my direction and personally reviewed by me in its entirety. I further attest, that it accurately reflects all work, treatment, procedures and medical decision -making performed by me. a/p: 59yo female with a mechanical fall- missed the curb and fell landing on her R knee -acute RLE pain -ttp proximal tibia, knee cap, distal femur -placed in a splint by EMS -will send for xrays -no head injury, no neck pain -no back pain -no other injuries -no cp/sob, abd pain -no n/v/d -no dysuria -will send labs, ekg, xrays -suspect fx -will most likely need admission 09/02/19 20:44 pos tibial plateau fx on xray will send for ct for further imaging 09/02/19 21:59 pt with comminuted fx of the R tibial plateau call placed to ortho 09/02/19 22:[address] Avila - will see patient in consult, given xarelto, will most likely not have surgery until Saturday. knee immobilizer and ice 09/02/19 22:19 family updated, does want to stay for pain conrol 09/02/19 22:30 case discussed with lee ann who accepts pt to service Discharge - Discharge Information Problems reviewed: Yes Clinical Impression/Diagnosis: Tibial plateau fracture, right Condition: Fair - Admission Yes - Follow up/Referral Referrals: Rosalio Pate MD [Primary Care Provider] - - Patient Discharge Instructions - Post Discharge Activity
--- NOTE | 2019-09-02 22:40 | PN ---
Teaching Attending Note Name of Resident: Aldo Stringer ATTENDING PHYSICIAN STATEMENT I saw and evaluated the patient. I reviewed the resident's note and discussed the case with the resident. I agree with the resident's findings and plan as documented. SUBJECTIVE: Patient is a 59 year old woman with a PMH of HTN, DM, HLD, Penicillin allergy, PE, Left lower extremity DVT, Asthma, Vertigo, Solitary kidney, and Obesity on Xarelto, who presents to the ER with right knee pain after a "mechanical fall". The patient notes she was walking on the street, the curb was broken, missed a step and landed on her R knee. She denies hitting head or LOC. Patient notes she is in excruciating pain that is worsened with movements. Patient's knee is in a split that was placed by EMS. Patient denies chest pain or shortness of breath. She denies recent fevers, chills, headache, dizziness, nausea, vomit, diarrhea or constipation. She denies recent dysuria, frequency, urgency or hematuria. OBJECTIVE: Alert Vital Signs Period Temp Pulse Resp BP Sys/Galarza Pulse Ox Last 24 Hr 98.4 F 92 16 154/74 99 HEENT: No Jaundice, eye redness or discharge, PERRLA, EOMI. Normocephalic, atraumatic. External ears are normal and hearing is grossly intact. No nasal discharge. Neck: Supple, nontender. No palpable adenopathy or thyromegaly. No JVD Chest: Good effort. Clear to auscultation and percussion. Heart: Regular. No S3, rub or murmur Abdomen: Not distended, soft, nontender and no HSM. No rebound or guarding. Normal bowel sounds. Ext: Peripheral pulses intact. No leg edema. Tender RLE and reduced range of motion. Distal motor and sensory function intact. Skin: Warm and dry. No petechiae, rash or ecchymosis. Neuro: Alert. Oriented x3. CN 2-12 grossly intact. Sensation grossly intact in all four extremities and DTR are symmetric. Psych: Appropriate mood and affect. Good insight. Home Medications Medication Instructions Recorded Glipizide [Glipizide Xl] 20 mg PO BID 07/11/16 Losartan Potassium 100 mg PO DAILY 07/11/16 Montelukast Na [Singulair -] 10 mg PO HS 07/11/16 Sertraline HCl [Zoloft] 100 mg PO DAILY 07/11/16 Simvastatin 40 mg PO HS 07/11/16 metFORMIN HCL [Glucophage -] 850 mg PO TID 07/11/16 Rivaroxaban [Xarelto -] 10 mg PO DAILY 02/05/17 Albuterol Sulfate Inhaler - 1 - 2 inh PO Q4H PRN 02/12/17 [Ventolin HFA Inhaler -] Acetaminophen [Tylenol -] 500 mg PO Q6H 04/09/17 Abnormal Lab Results 09/02/19 09/02/19 09/02/19 19:30 19:30 19:30 Hgb 10.6 L PT with INR 14.00 H INR 1.18 H Anion Gap 7 L Random Glucose 250 H ASSESSMENT AND PLAN: 1. Fall/Right tibia plateau fracture - CT scan confirms fracture. No obvious precipitating factor for fall. Ortho consulted. Will keep her NPO, use IV morphine for pain control, IV 1/2 NS, hold xarelto and use IV heparin drip and consult hematology for periperative anticoagulation management. EKG shows NSR with no significant ST-T wave changes and there is no acute abnormality on CXR. Will continue comprehensive care for all of patients comorbid conditions including IV heparin drip for DVT. 2. Uncontrolled DM For now, we will hold the home diabetes drugs and implement sliding scale insulin regimen. Provide comprehensive diabetes care with patient teaching and counseling about the importance of adherence to prescribed diabetes regimen, euglycemia, eye care and foot care. 3. Obesity Counseled on the risks associated with obesity. Will provide patient all the necessary assistance, counseling and positive reinforcement to facilitate weight loss. Consult icu staff nurse. 4. Uncontrolled hypertension - Restart suitable outpatient antihypertensive drugs when clinically appropriate. Revise regimen to ensure [id number] excellent BP control and certified lactation counselor patient on the injurious effects of uncontrolled hypertension. Nonpharmacologic measures to control hypertension like weight loss, salt restriction and exercise discussed. Importance of adherence to treatment regimen and attainment of normotension emphasized. 5. Anemia - Likely multifactorial. Will do basic anemia work up including serial stool guaiacs, reticulocyte count and iron studies. 6. DVT prophylaxis - On IV heparin drip 7. Advance directives - Full code
[2019-09-03 00:29] VITALS: BMI 38.9
[2019-09-03] MEDS ORDERED: HEPARIN - 25,000 UNIT in SODIUM CHLORIDE 495 ML IV SCH (01:00)
--- NOTE | 2019-09-03 01:05 | HP ---
CHIEF COMPLAINT: Rt leg pain PCP: Dr. 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 Pt notes she tripped due to a hole in the ground. She broke her fall without hitting her head or LOC. She denies any cp, sob, dizziness, nausea , pleuritic cp, hemoptysis, recent travel, fevers, chills ass. w/ this event. She is unsure if she is on which AC she uses at home, but it was titrated down to 10mg by her [facility] [employer] (Dr. Browning) on 08/24/19. Call placed to Dr. Avila who plans on doing the surgery on saturday due to bleed risk given her being on AC. ER course was notable for: (1) CT LE- notable for a Rt tibial plateau fracture (2) EKG- NSR trop negative (3) Recent Travel: denies PAST MEDICAL HISTORY: as listed above PAST SURGICAL HISTORY: c- section, venous procedure (unknown), Social History: Smoking: denies Alcohol: denies Drugs: denies Allergies lisinopril Allergy (Verified 09/02/19 18:32) Cough Penicillins Allergy (Verified 09/02/19 18:32) Hives ITCHING HOME MEDICATIONS: Home Medications Medication Instructions Recorded Glipizide [Glipizide Xl] 20 mg PO BID 07/11/16 Losartan Potassium 100 mg PO DAILY 07/11/16 Montelukast Na [Singulair -] 10 mg PO HS 07/11/16 Sertraline HCl [Zoloft] 100 mg PO DAILY 07/11/16 Simvastatin 40 mg PO HS 07/11/16 metFORMIN HCL [Glucophage -] 850 mg PO TID 07/11/16 Rivaroxaban [Xarelto -] 10 mg PO DAILY 02/05/17 Albuterol Sulfate Inhaler - 1 - 2 inh PO Q4H PRN 02/12/17 [Ventolin HFA Inhaler -] Acetaminophen [Tylenol -] 500 mg PO Q6H 04/09/17 REVIEW OF SYSTEMS negative except in HPI PHYSICAL EXAMINATION Vital Signs - 24 hr 09/02/19 09/03/19 18:32 00:13 Temperature 98.4 F 98.8 F Pulse Rate 92 H 84 Respiratory 16 18 Rate Blood Pressure 154/74 151/63 O2 Sat by Pulse 99 96 Oximetry (%) GENERAL: Awake, alert, and fully oriented, in no acute distress. EYES: Pupils equal, round and reactive to light, extraocular movements intact, sclera anicteric, conjunctiva clear. No lid lag. EARS, NOSE, THROAT: Ears normal, nares patent, oropharynx clear without exudates. Moist mucous membranes. NECK: Normal range of motion,no JVD LUNGS: Breath sounds equal, clear to auscultation bilaterally. No wheezes, and no crackles. No accessory muscle use. HEART: Regular rate and rhythm, normal S1 and S2 without murmur, rub or gallop. ABDOMEN: Soft, nontender, not distended, normoactive bowel sounds, no guarding MUSCULOSKELETAL: Normal range of motion at all joints. No bony deformities or tenderness. UPPER EXTREMITIES: 2+ pulses, warm, well-perfused. No cyanosis. No clubbing. No peripheral edema. LOWER EXTREMITIES: 2+ pulses, warm, well-perfused. No calf tenderness. No peripheral edema. RLE non-edematous, non-erythematous pulses b/l present. Able to move her toes, but refused to move RLE due to pain NEUROLOGICAL: Cranial nerves II-XII intact. Normal speech. PSYCHIATRIC: Cooperative. Good eye contact. Appropriate mood and affect. SKIN: Warm, dry, normal turgor, no rashes or lesions noted, Laboratory Results - last 24 hr 09/02/19 09/02/19 09/02/19 19:30 19:30 19:30 WBC 9.4 RBC 3.82 Hgb 10.6 L Hct 32.7 MCV 85.5 MCH 27.7 MCHC 32.4 RDW 14.5 Plt Count 248 D MPV 8.3 Absolute Neuts (auto) 6.3 Neutrophils % 67.1 D Lymphocytes % 24.8 D Monocytes % 6.2 Eosinophils % 1.2 Basophils % 0.7 Nucleated RBC % 0 PT with INR INR PTT (Actin FS) 34.1 Sodium 138 Potassium 4.7 Chloride 106 Carbon Dioxide 25 Anion Gap 7 L BUN 16.4 Creatinine 1.1 Est GFR (CKD-EPI)AfAm 64.09 Est GFR (CKD-EPI)NonAf 55.30 Random Glucose 250 H Calcium 9.7 Total Bilirubin 0.3 AST 28 ALT 27 Alkaline Phosphatase 74 Total Protein 7.4 Albumin 3.6 Blood Type Antibody Screen 09/02/19 09/02/19 19:30 19:30 WBC RBC Hgb Hct MCV MCH MCHC RDW Plt Count MPV Absolute Neuts (auto) Neutrophils % Lymphocytes % Monocytes % Eosinophils % Basophils % Nucleated RBC % PT with INR 14.00 H INR 1.18 H PTT (Actin FS) Sodium Potassium Chloride Carbon Dioxide Anion Gap BUN Creatinine Est GFR (CKD-EPI)AfAm Est GFR (CKD-EPI)NonAf Random Glucose Calcium Total Bilirubin AST ALT Alkaline Phosphatase Total Protein Albumin Blood Type B POSITIVE Antibody Screen Negative ASSESSMENT/PLAN: 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 Pt notes she tripped due to a hole in the ground. #Rt Tibial plateau fracture -Dr. Avila(ortho) will operate on saturday - initiate heparin drip due to her hx of dvt and unknown AC use. - confirm in AM with Heme (Dr. Browning) what medication she is on and at what dose. - Can turn off heparin drip at any time in the event Dr. Avila would like to operate sooner. - Rest, elevate, NSAIDS for pain, ice to reduce the inflammation #HTN - continue losartan 100 daily #DM - Hold metformin - ISS TIDAC #HLD - continue crestor Visit type - Emergency Visit Emergency Visit: Yes ED Registration Date: 09/02/19 Care time: The patient presented to the Emergency Department on the above date and was hospitalized for further evaluation of their emergent condition. - New Patient This patient is new to me today: Yes Date on this admission: 09/03/19 - Critical Care Critical Care patient: No ATTENDING PHYSICIAN STATEMENT I saw and evaluated the patient. I reviewed the resident's note and discussed the case with the resident. I agree with the resident's findings and plan as documented. SUBJECTIVE: OBJECTIVE: ASSESSMENT AND PLAN:
[2019-09-03] MEDS ORDERED: ALBUTEROL SO4 8 GM HFA INHALER IH PRN (02:05)
[2019-09-03] MEDS ORDERED: HEPARIN NA (PORCINE) 5,000 UNITS/ML 1ML VIAL IVPUSH PRN ×2 (02:14)
[2019-09-03] MEDS ORDERED: HEPARIN SOD,PORK IN 0.45% NACL 25,000 UNITS/500 ML INFUS.BAG IVPB SCH (02:15)
[2019-09-03] MEDS: MORPHINE SULFATE 2 MG/ML VIAL IVPUSH SCH ×4 (02:19→14:27)
[2019-09-03] MEDS: HEPARIN SOD,PORK IN 0.45% NACL 25,000 UNITS/500 ML INFUS.BAG IVPB SCH (04:12)
[2019-09-03] MEDS ORDERED: INSULIN (NOVOLOG) ASPART 100 UNITS/ML 10ML VIAL ONE ×2 (06:09→17:01)
[2019-09-03] MEDS: INSULIN SLIDING SCALE (NOVOLOG) 1 VIAL SQ SCH ×4 (06:42→22:55)
[2019-09-03 09:17] LABS: HEMATOCRIT 29.9 % (32.4-45.2); HEMOGLOBIN 9.9 GM/dL (10.7-15.3); MCH 27.9 pg (25.7-33.7); MCHC 33.2 g/dl (32.0-36.0); MEAN CELL VOLUME 83.9 fl (80-96); MEAN PLT VOLUME 8.4 fl (7.5-11.1); PLATELET COUNT 258 K/MM3 (134-434); RBC 3.56 M/mm3 (3.60-5.2); RDW 14.4 % (11.6-15.6); RETICULOCYTES 1.76 % (0.5-1.5); WHITE BLOOD COUNT 7.9 K/mm3 (4.0-10.0)
[2019-09-03 09:23] LABS: INR 1.23 (0.83-1.09); PROTHROMBIN TIME (PATIENT) 14.6 SEC (9.7-13.0)
[2019-09-03] MEDS: HEPARIN NA (PORCINE) 5,000 UNITS/ML 1ML VIAL IVPUSH PRN (09:40)
[2019-09-03 09:50] LABS: ALBUMIN 3.3 g/dl (3.4-5.0); BILIRUBIN,TOTAL 0.5 mg/dL (0.2-1); BLOOD UREA NITROGEN 14.4 mg/dL (7-18); CALCIUM 9.4 mg/dL (8.5-10.1); CREATININE 0.9 mg/dL (0.55-1.3); MAGNESIUM 1.6 mg/dL (1.8-2.4); PHOSPHOROUS 3.8 mg/dL (2.5-4.9); POTASSIUM 4.2 mmol/L (3.5-5.1); TOT PROT 7.2 g/dl (6.4-8.2)
--- NOTE | 2019-09-03 09:52 | PN ---
Progress Note (short form) - Note Progress Note: Pt seen and examined. Everything explained in German to the pt and her daughter. All questions and concerns addressed. She is a 59 year old female pt 1 day s/p fall, injuring her right knee. She is obese, and has a history of both peripheral blood clots in the legs and a PE, for which she was put on Eliquis, several years ago. No cause of the blood clots were ever found. AVSS PE She currently has a knee immobilizer on the right leg, holding the knee in extension. No severe swelling, no abrasions, not an open injury, minimal ecchymosis. She is tender over the entire knee. + pain with any attempted motion, patient not making a big effort to move because of pain. She has intact foot inversion, eversion, all very limited bc of pain in the knee, as well as toe flexion and extension. She is either unable or unwilling to plantar flex or dorsi flex the ankle. Good peripheral pulses, distal capillary refill less than 2 seconds. Difficult to assess sensory exam, as she is in a lot of pain and is not really following my requests. x-rays and CT scan show a comminuted, right, displaced medial tibial plateau fracture, with a non displaced extension into the lateral tibial plateau. Imp As above, possible peroneal nerve injury at the ankle, possible motor and/ or sensory deficit with possible foot drop. Rec Medical optimization, then surgery ORIF right tibial plateau explained to pt and her daughter. Likely will happen Saturday, as she last took her Eliquis yesterday. We need medical clearance for Saturday surgery [facility] NPO after midnight Saturday
[2019-09-03] MEDS ORDERED: PATIENT'S OWN MEDICATION (NON-FORMULARY) (Losartan Potassium [Losartan Potassium] 100 MG) PO SCH (10:00)
[2019-09-03] MEDS ORDERED: PATIENT'S OWN MEDICATION (NON-FORMULARY) (Sertraline Hcl [Zoloft] 100 MG) PO SCH (10:00)
[2019-09-03] MEDS ORDERED: MAGNESIUM OXIDE 400 MG TABLET (FP) PO ONE (10:16)
[2019-09-03] MEDS: LOSARTAN POTASSIUM 50 MG TABLET (FP) PO SCH (10:31)
[2019-09-03] MEDS: SERTRALINE HCL 50 MG TABLET (FP) PO SCH (10:31)
--- NOTE | 2019-09-03 12:38 | EKG ---
Test Reason : Blood Pressure : / mmHG Vent. Rate : 082 BPM Atrial Rate : 082 BPM P-R Int : 146 ms QRS Dur : 098 ms QT Int : 384 ms P-R-T Axes : 062 020 026 degrees QTc Int : 448 ms NORMAL SINUS RHYTHM NORMAL ECG WHEN COMPARED WITH ECG OF 30-DEC-2017 09:40, VENT. RATE HAS INCREASED BY 28 BPM Confirmed by VIOLETA MEDINA MD ([id number]) on 09/03/2019 12:37:40 PM Referred By: Confirmed By:VIOLETA MEDINA MD
[2019-09-03] MEDS ORDERED: ACETAMINOPHEN 1000 MG/100 ML VIAL (NON FORMULARY) IVPB ONE (14:45)
--- NOTE | 2019-09-03 14:48 | PN ---
Progress Note (short form) - Note Progress Note: Hospitalist Medicine D/w patient, going for sx on Saturday as was on blood thinner. Past hx unprovoked PE/DVT. Was on eliquis previously, but most recently was on xarelto 10mg qd. Follows with Dr. Perdue as outpt. Pt is currently being medically optimized for her procedure. Is on hep gtt and xarelto is held. C/o severe R knee pain after tripping on a sidewalk. Also w/ LUE discomfort however ROM preserved. Vitals 09/03/19 14:36 Temperature 99.5 F Pulse Rate 88 Blood Pressure 151/76 Physical Exam general: resting in bed, in mild distress HEENT: NCAT neck: supple cardio: S1, S2 RRR. no r/m/g pulm: CTA b/l, but limited 2/2 body habitus abdomen: obese. soft, nontender, nondistended MSK: +R knee brace w/ limited ROM. LLE 3/5 motor strength, 4/5 in UE. +numbness Laboratory Tests 09/03/19 09/03/19 09/03/19 06:00 06:40 09:05 WBC 7.9 Hgb 9.9 L Hct 29.9 L Plt Count 258 PT with INR INR PTT (Actin FS) Sodium 137 Potassium 4.2 Chloride 105 Carbon Dioxide 26 Anion Gap 6 L BUN 14.4 Creatinine 0.9 Est GFR (CKD-EPI)AfAm 81.69 POC Glucometer 189 Random Glucose 161 H Calcium 9.4 Phosphorus 3.8 Magnesium 1.6 L 09/03/19 09/03/19 09/03/19 09:05 15:48 16:51 WBC Hgb Hct Plt Count PT with INR 14.60 H INR 1.23 H PTT (Actin FS) 55.1 H Carbon Dioxide Est GFR (CKD-EPI)AfAm POC Glucometer 259 Random Glucose Imaging R Femur XR: tibial plateau fracture and jt effusion noted R knee XR: medial tibial plateau fracture with a fabella and possible loose bodies. R tibia/fibula XR: tibial plateau fx with joint effusion, flabella and joint fragments CXR (-) for acute path CT RLE w/o contrast: +comminuted fracture of the R tibial plateau Cardio: EKG: NSR, rate 82bpm, qtc 448ms Assessment/plan 59 y/o F with PMHx of DM, solitary kidney, HTN, HLD, hx of DVT (2 yrs ago), Asthma BIBEMS s/p witnessed fall. Found to have a +R comminuted fx of the R tibial plateau. # R comminuted fx of the R tibial plateau -for OR with Dr. Avila Saturday, as pt was on xarelto -non-wt bearing -NPO after MN on saturday -pain control: morphine 4mg q8h PRN for pain 7-10, or IV tylenol PRN breakthru -bowel regimen started: senna, colace, miralax -started gabapentin for nerve pain -no PT until after sx #hx DVT, PE - unprovoked -hold xarelto -follows w/ Dr. Perdue as outpt -on hep gtt -will need to stop hep gtt prior to sx #HLD -c/w statin #HTN- uncontrolled -likely 2/2 pain -c/w losartan #NIDDM -hold home agents -c/w ISS, BGM ACHS #asthma -not in exacerbation -c/w ventolin PRN, singulair #solitary kidney -congenital -c/t monitor #F/E/N not requiring IVF continue to follow lytes diabetic diet #PPX SCD's #Dispo admit to med-surg <Gisella West - Last Filed: 09/03/19 18:17> - Note Progress Note: Seen and examined; discussed at length with resident team and indicated consultants. Independently reviewed all jay historical, PE, diagnostic, and imaging findings. Agree with above documentation and assessment and plan as documented by resident aside from as supplemented below. Remains on drip awaiting surgery; no new symptoms. Stable. Neurovascularly intact and no s/s DVT, PE. 10 sys ROS done and negative aside from HPI VS labs imaging reviewed NAD, AAO resting in bed NC AT EOMI PERRLA HR wnl, +s1/2 NT ND +BS CN2-12 wnl, no progressive neuro sx Normal mood, appropriate behavior MRI reviewed with the resident team A/P: Remains on hep ggt with holding xarelto in preparation for procedure with Dr. Avila. Agree with above assessment and plan. No major changes. Review SSI use and may titrate if she consistently remains >200 but she has poor control at baseline and don't want to adjust too soon and wrist postoperative hypoglycemia. Full Code <Ishaan Montana - Last Filed: 09/04/19 22:52>
[2019-09-03] MEDS ORDERED: ACETAMINOPHEN 1000 MG/100 ML VIAL (NON FORMULARY) IVPB PRN (17:59)
[2019-09-03] MEDS ORDERED: MORPHINE SULFATE 2 MG/ML VIAL IVPUSH SCH (18:00)
[2019-09-03] MEDS: DOCUSATE SODIUM 100 MG CAPSULE (FP) PO SCH ×2 (18:34→18:36)
[2019-09-03] MEDS: morphine SULFATE 4 MG/ML VIAL IVPUSH PRN (18:34)
[2019-09-03] MEDS: POLYETHYLENE GLYCOL 3350 119 GM BTL PO SCH ×2 (18:35→18:37)
[2019-09-03] MEDS ORDERED: PATIENT'S OWN MEDICATION (NON-FORMULARY) (Simvastatin [Simvastatin] 40 MG) PO SCH (22:00)
[2019-09-03] MEDS ORDERED: ACETAMINOPHEN 325 MG TABLET (FP) PO PRN (22:34)
[2019-09-03] MEDS: SENNOSIDES 8.6MG TABLET (FP) PO SCH (23:00)
[2019-09-03] MEDS: ATORVASTATIN CA 20 MG TABLET (FP) PO SCH (23:00)
[2019-09-03] MEDS: MONTELUKAST NA 10 MG TABLET PO SCH (23:00)
[2019-09-04] MEDS: HEPARIN SOD,PORK IN 0.45% NACL 25,000 UNITS/500 ML INFUS.BAG IVPB SCH (03:27)
[2019-09-04] MEDS: INSULIN SLIDING SCALE (NOVOLOG) 1 VIAL SQ SCH ×4 (06:18→21:57)
[2019-09-04] MEDS ORDERED: PT OWN MED DRAWER 7, Y5N ONE (09:09)
[2019-09-04 09:29] LABS: BLOOD UREA NITROGEN 13.8 mg/dL (7-18); CALCIUM 9.7 mg/dL (8.5-10.1); CREATININE 0.9 mg/dL (0.55-1.3); POTASSIUM 4.3 mmol/L (3.5-5.1)
--- NOTE | 2019-09-04 09:59 | PN ---
Progress Note (short form) - Note Progress Note: Hospitalist Medicine States that her pain is better controlled. Is frustrated since she has been unable to "take a shower and wash up." Discussed importance of bed rest until sx , no weight bearing permitted. Sx on Saturday w/ Dr. Avila. Vitals 09/04/19 05:20 Temperature 98.7 F Pulse Rate 87 Respiratory 20 Rate Blood Pressure 146/64 Physical Exam general: resting in bed, in no acute distress. pleasant. HEENT: NCAT, PERRLA neck: supple cardio: S1, S2 RRR. no r/m/g pulm: CTA b/l, but limited 2/2 body habitus abdomen: obese. soft, nontender, nondistended MSK: +R knee brace w/ limited ROM. LLE 3/5 motor strength, 5/5 in UE. c/o numbness, however not elicited on exam. Laboratory Tests 09/04/19 09/04/19 08:00 08:00 PTT (Actin FS) 39.7 H Sodium 133 L Potassium 4.3 Chloride 101 Carbon Dioxide 24 Anion Gap 8 BUN 13.8 Creatinine 0.9 Random Glucose 238 H Imaging R Femur XR: tibial plateau fracture and jt effusion noted R knee XR: medial tibial plateau fracture with a fabella and possible loose bodies. R tibia/fibula XR: tibial plateau fx with joint effusion, flabella and joint fragments CXR (-) for acute path CT RLE w/o contrast: +comminuted fracture of the R tibial plateau Cardio: EKG: NSR, rate 82bpm, qtc 448ms Assessment/plan 59 y/o F with PMHx of DM, solitary kidney, HTN, HLD, hx of DVT (2 yrs ago), Asthma BIBEMS s/p witnessed fall. Found to have a +R comminuted fx of the R tibial plateau. # R comminuted fx of the R tibial plateau -for OR with Dr. Avila Saturday, as pt was on xarelto -non-wt bearing -NPO after MN on saturday -pain control: morphine 4mg q8h PRN for pain 7-10, or IV tylenol PRN breakthru -bowel regimen started: senna, colace, miralax -started gabapentin for nerve pain -no PT until after sx #hx DVT, PE - unprovoked -hold xarelto -follows w/ Dr. Perdue as outpt -on hep gtt -will need to stop hep gtt prior to sx #HLD -c/w statin #HTN- uncontrolled -likely 2/2 pain -c/w losartan #NIDDM -hold home agents -c/w ISS, BGM ACHS #asthma -not in exacerbation -c/w ventolin PRN, singulair #solitary kidney -congenital -c/t monitor #F/E/N not requiring IVF continue to follow lytes diabetic diet. NPO after MN saturday for sx #PPX on hep gtt #Dispo sx on Saturday cont'd monitoring until then <Gisella West - Last Filed: 09/04/19 16:33> - Note Progress Note: Seen and examined; discussed at length with resident team and indicated consultants. Independently reviewed all jay historical, PE, diagnostic, and imaging findings. Agree with above documentation and assessment and plan as documented by resident aside from as supplemented below. Remains on drip awaiting surgery; no new symptoms. Stable. Neurovascularly intact and no s/s DVT, PE. 10 sys ROS done and negative aside from HPI VS labs imaging reviewed NAD, AAO resting in bed NC AT EOMI PERRLA HR wnl, +s1/2 NT ND +BS CN2-12 wnl, no progressive neuro sx Normal mood, appropriate behavior MRI reviewed with the resident team A/P: Remains on hep ggt with holding xarelto in preparation for procedure with Dr. Avila. Agree with above assessment and plan. No major changes. Review SSI use and may titrate if she consistently remains >200 but she has poor control at baseline and don't want to adjust too soon and wrist postoperative hypoglycemia. Full Code <Ishaan Montana - Last Filed: 09/04/19 22:52>
[2019-09-04] MEDS: GABAPENTIN 100 MG CAPSULE (FP) PO SCH (10:36)
[2019-09-04] MEDS: DOCUSATE SODIUM 100 MG CAPSULE (FP) PO SCH (10:36)
[2019-09-04] MEDS: LOSARTAN POTASSIUM 50 MG TABLET (FP) PO SCH (10:36)
[2019-09-04] MEDS: SERTRALINE HCL 50 MG TABLET (FP) PO SCH (10:36)
[2019-09-04] MEDS: morphine SULFATE 4 MG/ML VIAL IVPUSH PRN (10:46)
[2019-09-04] MEDS: POLYETHYLENE GLYCOL 3350 119 GM BTL PO SCH (10:47)
[2019-09-04] MEDS: HEPARIN NA (PORCINE) 5,000 UNITS/ML 1ML VIAL IVPUSH PRN (19:40)
[2019-09-04] MEDS: ACETAMINOPHEN 325 MG TABLET (FP) PO PRN (20:38)
[2019-09-04] MEDS ORDERED: INSULIN (NOVOLOG) ASPART 100 UNITS/ML 10ML VIAL ONE (21:29)
[2019-09-04] MEDS: MONTELUKAST NA 10 MG TABLET PO SCH (21:56)
[2019-09-04] MEDS: SENNOSIDES 8.6MG TABLET (FP) PO SCH (21:56)
[2019-09-04] MEDS: ATORVASTATIN CA 20 MG TABLET (FP) PO SCH (21:56)
[2019-09-05] MEDS: HEPARIN SOD,PORK IN 0.45% NACL 25,000 UNITS/500 ML INFUS.BAG IVPB SCH ×2 (03:13→16:53)
[2019-09-05] MEDS: morphine SULFATE 4 MG/ML VIAL IVPUSH PRN ×2 (06:02→15:01)
[2019-09-05] MEDS: INSULIN SLIDING SCALE (NOVOLOG) 1 VIAL SQ SCH ×4 (06:31→21:45)
[2019-09-05 08:50] LABS: BASO % 0.6 % (0-2.0); EOS % 3.8 % (0-4.5); HEMATOCRIT 30.3 % (32.4-45.2); HEMOGLOBIN 10.2 GM/dL (10.7-15.3); LYMPH % 42.3 % (8-40); MCH 28.3 pg (25.7-33.7); MCHC 33.6 g/dl (32.0-36.0); MEAN CELL VOLUME 84.1 fl (80-96); MONO % 7.4 % (3.8-10.2); NEUT % 45.9 % (42.8-82.8); PLATELET COUNT 257 K/MM3 (134-434); RDW 14.5 % (11.6-15.6); WHITE BLOOD COUNT 9.5 K/mm3 (4.0-10.0)
[2019-09-05 09:17] LABS: BLOOD UREA NITROGEN 25.2 mg/dL (7-18); CALCIUM 9.3 mg/dL (8.5-10.1); CREATININE 1.1 mg/dL (0.55-1.3); POTASSIUM 4.3 mmol/L (3.5-5.1)
[2019-09-05] MEDS: GABAPENTIN 100 MG CAPSULE (FP) PO SCH (10:42)
[2019-09-05] MEDS: LOSARTAN POTASSIUM 50 MG TABLET (FP) PO SCH (10:43)
[2019-09-05] MEDS: SERTRALINE HCL 50 MG TABLET (FP) PO SCH (10:43)
[2019-09-05] MEDS: DOCUSATE SODIUM 100 MG CAPSULE (FP) PO SCH (10:44)
[2019-09-05] MEDS: POLYETHYLENE GLYCOL 3350 119 GM BTL PO SCH (10:44)
[2019-09-05] MEDS ORDERED: INSULIN (NOVOLOG) ASPART 100 UNITS/ML 10ML VIAL ONE ×2 (11:42→17:18)
[2019-09-05] MEDS: ACETAMINOPHEN 325 MG TABLET (FP) PO PRN (15:00)
--- NOTE | 2019-09-05 16:32 | PN ---
Progress Note, Physician History of Present Illness: Patient seen and examined at bedside with daughter present. All questions answered and concerns addressed. for OR with ortho on saturday. blood sugars uncontrolled. Patient states she is on insulin long acting 25units at night. she states her pain is better controlled. Denies nausea vomiting fever chills chest pain or SOB. Tmax 100.5 at 8pm last night. - Current Medication List Current Medications: Active Medications Acetaminophen (Tylenol -) 650 mg PO Q6H PRN PRN Reason: PAIN LEVEL 4 - 6 Last Admin: 09/05/19 15:00 Dose: 650 mg Albuterol Sulfate (Ventolin Hfa Inhaler -) 2 puff IH Q4H PRN PRN Reason: ASTHMA Atorvastatin Calcium (Lipitor -) 20 mg PO HS [facility] Last Admin: 09/04/19 21:56 Dose: 20 mg Docusate Sodium (Colace -) 100 mg PO DAILY [facility] Last Admin: 09/05/19 10:44 Dose: Not Given Gabapentin (Neurontin -) 100 mg PO DAILY [facility] Last Admin: 09/05/19 10:42 Dose: 100 mg Heparin Sodium (Porcine) (Heparin -) 1,000 unit IVPUSH PRN PRN PRN Reason: Heparin Heparin Sodium (Porcine) (Heparin -) 5,000 unit IVPUSH PRN PRN PRN Reason: Heparin Last Admin: 09/04/19 19:40 Dose: 5,000 unit HEPARIN SOD,PORK IN 0.45% NACL (Heparin-1/2ns 25,000 Units/500) 25,000 units in 500 mls @ 20 mls/hr IVPB TITR [facility]; Protocol Last Admin: 09/05/19 03:13 Dose: 1,000 units/hr, 20 mls/hr Insulin Aspart (Novolog Vial Sliding Scale -) 1 vial SQ ACHS [facility]; Protocol Last Admin: 09/05/19 11:45 Dose: 10 units Insulin Detemir (Levemir Vial) 20 units SQ HS [facility] Losartan Potassium (Cozaar -) 100 mg PO DAILY [facility] Last Admin: 09/05/19 10:43 Dose: 100 mg Montelukast Sodium (Singulair -) 10 mg PO HS [facility] Last Admin: 09/04/19 21:56 Dose: 10 mg Morphine Sulfate (Morphine Sulfate) 4 mg IVPUSH Q8H PRN PRN Reason: PAIN LEVEL 7 - 10 Last Admin: 09/05/19 15:01 Dose: 4 mg Polyethylene Glycol (Miralax (For Daily Use) -) 17 gm PO DAILY [facility] Last Admin: 09/05/19 10:44 Dose: Not Given Senna (Senna -) 1 tab PO HS [facility] Last Admin: 09/04/19 21:56 Dose: Not Given Sertraline HCl (Zoloft -) 100 mg PO DAILY [facility] Last Admin: 09/05/19 10:43 Dose: 100 mg - Objective Vital Signs: Vital Signs Temperature 98.9 F 09/05/19 14:12 Pulse Rate 90 09/05/19 14:12 Respiratory Rate 20 09/04/19 20:00 Blood Pressure 128/56 L 09/05/19 14:12 O2 Sat by Pulse Oximetry (%) 93 L 09/03/19 09:00 Constitutional: Yes: No Distress, Calm, Obese HENT: Yes: Atraumatic Neck: Yes: Supple Cardiovascular: Yes: Regular Rate and Rhythm Respiratory: Yes: CTA Bilaterally Gastrointestinal: Yes: Soft, Abdomen, Obese. No: Tenderness Extremities: Yes: Other (LLE sensation intact warm DP pulse 2+ able to wiggle toes) Peripheral Pulses: Right Dorsalis Pedis: 2+ Neurological: Yes: Alert, Oriented Psychiatric: Yes: Alert, Oriented Labs: CBC, BMP 09/05/19 08:00 09/05/19 08:00 INR, PTT INR 1.23 (0.83-1.09) H 09/03/19 09:05 Impression/Plan Impression/Plan: 59 y/o F with PMHx of DM, solitary kidney, HTN, HLD, hx of DVT (2 yrs ago), Asthma BIBEMS s/p witnessed fall. Found to have a +R comminuted fx of the R tibial plateau. R comminuted fx of the R tibial plateau pain control for OR Saturday hx DVT, PE - unprovoked Continue hep gtt for now hold xarelto HLD statin HTN/tachycardia- uncontrolled could be due to pain continue losartan start metoprolol 25mg po BID NIDDM uncontrolled has been uncontrolled most of this hospital stay check a1C patient states she takes insulin 25units at night will start levemir 20 units HS and reassess asthma not in exacerbation c/w ventolin PRN, singulair solitary kidney congenital careful with nephrotoxins Change sodium controlled diet to diabetic diet due to hyeprglycemia PPX on hep gtt All questions answered and concerns addressed Patient is moderate risk for moderate risk procedure high risk for VTE try to restart anticoagulation as soon as feasible after procedure Visit type - Emergency Visit Emergency Visit: Yes ED Registration Date: 09/02/19 Care time: The patient presented to the Emergency Department on the above date and was hospitalized for further evaluation of their emergent condition. - New Patient This patient is new to me today: Yes Date on this admission: 09/05/19 - Critical Care Critical Care patient: No
[2019-09-05] MEDS: HEPARIN NA (PORCINE) 5,000 UNITS/ML 1ML VIAL IVPUSH PRN (16:51)
[2019-09-05] MEDS: METOPROLOL TARTRATE 25 MG TABLET (FP) PO SCH (21:43)
[2019-09-05] MEDS: ATORVASTATIN CA 20 MG TABLET (FP) PO SCH (21:43)
[2019-09-05] MEDS: MONTELUKAST NA 10 MG TABLET PO SCH (21:43)
[2019-09-05] MEDS: SENNOSIDES 8.6MG TABLET (FP) PO SCH (21:43)
[2019-09-05] MEDS ORDERED: INSULIN (LEVEMIR) 100 UNITS/ML UNITS SQ SCH ×2 (22:00)
[2019-09-06] MEDS: HEPARIN SOD,PORK IN 0.45% NACL 25,000 UNITS/500 ML INFUS.BAG IVPB SCH ×2 (00:12→21:50)
[2019-09-06] MEDS: HEPARIN NA (PORCINE) 5,000 UNITS/ML 1ML VIAL IVPUSH PRN ×2 (00:13→11:17)
[2019-09-06] MEDS: morphine SULFATE 4 MG/ML VIAL IVPUSH PRN ×3 (01:46→17:30)
[2019-09-06] MEDS: INSULIN SLIDING SCALE (NOVOLOG) 1 VIAL SQ SCH ×4 (06:11→21:49)
[2019-09-06] MEDS: ACETAMINOPHEN 325 MG TABLET (FP) PO PRN ×2 (08:59→19:27)
[2019-09-06] MEDS ORDERED: amLODIPine BESYLATE 5 MG TABLET (FP) PO SCH (10:00)
[2019-09-06] MEDS: SERTRALINE HCL 50 MG TABLET (FP) PO SCH (10:28)
[2019-09-06] MEDS: GABAPENTIN 100 MG CAPSULE (FP) PO SCH (10:28)
[2019-09-06] MEDS: LOSARTAN POTASSIUM 50 MG TABLET (FP) PO SCH (10:28)
[2019-09-06] MEDS: METOPROLOL TARTRATE 25 MG TABLET (FP) PO SCH ×2 (10:28→21:48)
[2019-09-06] MEDS: DOCUSATE SODIUM 100 MG CAPSULE (FP) PO SCH (10:28)
[2019-09-06] MEDS: POLYETHYLENE GLYCOL 3350 119 GM BTL PO SCH (10:29)
[2019-09-06 10:39] LABS: HEMATOCRIT 29.1 % (32.4-45.2); HEMOGLOBIN 9.7 GM/dL (10.7-15.3); MCH 28.3 pg (25.7-33.7); MCHC 33.3 g/dl (32.0-36.0); MEAN CELL VOLUME 84.9 fl (80-96); MEAN PLT VOLUME 9.6 fl (7.5-11.1); PLATELET COUNT 255 K/MM3 (134-434); RBC 3.43 M/mm3 (3.60-5.2); RDW 14.4 % (11.6-15.6); WHITE BLOOD COUNT 10.3 K/mm3 (4.0-10.0)
[2019-09-06 11:06] LABS: BLOOD UREA NITROGEN 28.4 mg/dL (7-18); CALCIUM 9.3 mg/dL (8.5-10.1); POTASSIUM 4.5 mmol/L (3.5-5.1)
[2019-09-06] MEDS ORDERED: INSULIN (NOVOLOG) ASPART 100 UNITS/ML 10ML VIAL ONE ×2 (11:21→21:42)
--- NOTE | 2019-09-06 17:02 | PN ---
Progress Note, Physician History of Present Illness: Patient seen and examined at bedside. All questions answered and concerns addressed. for OR with ortho on saturday. blood sugars still uncontrolled despite starting levemir but they are better. Patient states she is on insulin long acting 25units at night. she states her pain is controlled when she gets the morphine. Denies nausea vomiting fever chills chest pain or SOB. Afebrile. - Current Medication List Current Medications: Active Medications Acetaminophen (Tylenol -) 650 mg PO Q6H PRN PRN Reason: PAIN LEVEL 4 - 6 Last Admin: 09/06/19 08:59 Dose: 650 mg Albuterol Sulfate (Ventolin Hfa Inhaler -) 2 puff IH Q4H PRN PRN Reason: ASTHMA Atorvastatin Calcium (Lipitor -) 20 mg PO HS [facility] Last Admin: 09/05/19 21:43 Dose: 20 mg Docusate Sodium (Colace -) 100 mg PO DAILY [facility] Last Admin: 09/06/19 10:28 Dose: 100 mg Gabapentin (Neurontin -) 100 mg PO DAILY [facility] Last Admin: 09/06/19 10:28 Dose: 100 mg Heparin Sodium (Porcine) (Heparin -) 1,000 unit IVPUSH PRN PRN PRN Reason: Heparin Stop: 09/06/19 23:59 Last Admin: 09/06/19 11:17 Dose: 1,000 unit Heparin Sodium (Porcine) (Heparin -) 5,000 unit IVPUSH PRN PRN PRN Reason: Heparin Stop: 09/06/19 23:59 Last Admin: 09/05/19 16:51 Dose: 5,000 unit HEPARIN SOD,PORK IN 0.45% NACL (Heparin-1/2ns 25,000 Units/500) 25,000 units in 500 mls @ 20 mls/hr IVPB TITR [facility]; Protocol Stop: 09/06/19 23:59 Last Titration: 09/06/19 11:19 Dose: 1,350 units/hr, 27 mls/hr Insulin Aspart (Novolog Vial Sliding Scale -) 1 vial SQ [facility]; Protocol Last Admin: 09/06/19 11:23 Dose: 8 units Insulin Detemir (Levemir Vial) 15 units SQ [facility] Losartan Potassium (Cozaar -) 100 mg PO DAILY [facility] Last Admin: 09/06/19 10:28 Dose: 100 mg Metoprolol Tartrate (Lopressor -) 25 mg PO BID [facility] Last Admin: 09/06/19 10:28 Dose: 25 mg Montelukast Sodium (Singulair -) 10 mg PO HS [facility] Last Admin: 09/05/19 21:43 Dose: 10 mg Morphine Sulfate (Morphine Sulfate) 4 mg IVPUSH Q8H PRN PRN Reason: PAIN LEVEL 7 - 10 Last Admin: 09/06/19 09:27 Dose: 4 mg Polyethylene Glycol (Miralax (For Daily Use) -) 17 gm PO DAILY [facility] Last Admin: 09/06/19 10:29 Dose: 17 gm Senna (Senna -) 1 tab PO HS [facility] Last Admin: 09/05/19 21:43 Dose: 1 tab Sertraline HCl (Zoloft -) 100 mg PO DAILY [facility] Last Admin: 09/06/19 10:28 Dose: 100 mg - Objective Vital Signs: Vital Signs Temperature 98.3 F 09/06/19 14:04 Pulse Rate 72 09/06/19 14:04 Respiratory Rate 14 09/06/19 08:25 Blood Pressure 130/72 09/06/19 14:04 O2 Sat by Pulse Oximetry (%) 93 L 09/03/19 09:00 Constitutional: Yes: No Distress, Calm, Obese HENT: Yes: Atraumatic Neck: Yes: Supple Cardiovascular: Yes: Regular Rate and Rhythm Respiratory: Yes: CTA Bilaterally Gastrointestinal: Yes: Soft, Abdomen, Obese. No: Tenderness Extremities: Yes: Other (LLE sensation intact warm DP pulse 2+ able to wiggle toes) Peripheral Pulses: Right Dorsalis Pedis: 2+ Neurological: Yes: Alert, Oriented Psychiatric: Yes: Alert, Oriented Labs: CBC, BMP 09/06/19 08:30 09/06/19 08:30 INR, PTT INR 1.23 (0.83-1.09) H 09/03/19 09:05 Impression/Plan Impression/Plan: 59 y/o F with PMHx of DM, solitary kidney, HTN, HLD, hx of DVT (2 yrs ago), Asthma BIBEMS s/p witnessed fall. Found to have a +R comminuted fx of the R tibial plateau. R comminuted fx of the R tibial plateau pain control for OR tomorrow hx DVT, PE - unprovoked Continue hep gtt for now until midnight per ortho hold xarelto for now and restart when ok by Ortho HLD statin HTN/tachycardia could be due to pain continue losartan Heart rate now controlled since starting metoprolol 25mg po BID yesterday NIDDM uncontrolled but better controlled now has been uncontrolled most of this hospital stay a1C is 8.0 patient states she takes insulin 25units at night will decrease levemir to 15 units as she will be NPO past midnight asthma not in exacerbation c/w ventolin PRN, singulair solitary kidney congenital careful with nephrotoxins Change sodium controlled diet to diabetic diet due to hyeprglycemia PPX on hep gtt Start IVF past midnight All questions answered and concerns addressed Patient is moderate risk for moderate risk procedure high risk for VTE restart anticoagulation as soon as feasible after procedure Visit type - Emergency Visit Emergency Visit: Yes ED Registration Date: 09/02/19 Care time: The patient presented to the Emergency Department on the above date and was hospitalized for further evaluation of their emergent condition. - New Patient This patient is new to me today: No - Critical Care Critical Care patient: No
[2019-09-06] MEDS ORDERED: PT OWN MED DRAWER 7, Y5N ONE (19:29)
[2019-09-06] MEDS: ATORVASTATIN CA 20 MG TABLET (FP) PO SCH (21:48)
[2019-09-06] MEDS: SENNOSIDES 8.6MG TABLET (FP) PO SCH (21:48)
[2019-09-06] MEDS: MONTELUKAST NA 10 MG TABLET PO SCH (21:48)
[2019-09-06] MEDS ORDERED: INSULIN (LEVEMIR) 100 UNITS/ML UNITS SQ SCH (22:00)
[2019-09-07] MEDS ORDERED: SODIUM CHLORIDE 0.45% 1,000 ML IV SCH ×2 (00:01→17:43)
[2019-09-07] MEDS: morphine SULFATE 4 MG/ML VIAL IVPUSH PRN ×3 (00:22→20:28)
[2019-09-07] MEDS ORDERED: ACETAMINOPHEN 1000 MG/100 ML VIAL (NON FORMULARY) IVPB ONE ×3 (05:08→17:43)
[2019-09-07] MEDS: INSULIN SLIDING SCALE (NOVOLOG) 1 VIAL SQ SCH ×5 (06:28→21:37)
[2019-09-07 09:30] LABS: HEMATOCRIT 28.1 % (32.4-45.2); HEMOGLOBIN 9.4 GM/dL (10.7-15.3); MCHC 33.3 g/dl (32.0-36.0); MEAN CELL VOLUME 84.2 fl (80-96); MEAN PLT VOLUME 8.8 fl (7.5-11.1); PLATELET COUNT 236 K/MM3 (134-434); RBC 3.34 M/mm3 (3.60-5.2); RDW 14.2 % (11.6-15.6); WHITE BLOOD COUNT 11.2 K/mm3 (4.0-10.0)
[2019-09-07 09:53] LABS: BLOOD UREA NITROGEN 22.2 mg/dL (7-18); CALCIUM 9.1 mg/dL (8.5-10.1); CREATININE 0.9 mg/dL (0.55-1.3); POTASSIUM 4.7 mmol/L (3.5-5.1)
[2019-09-07] MEDS: METOPROLOL TARTRATE 25 MG TABLET (FP) PO SCH ×2 (10:06→21:35)
[2019-09-07] MEDS: POLYETHYLENE GLYCOL 3350 119 GM BTL PO SCH (10:32)
[2019-09-07] MEDS: DOCUSATE SODIUM 100 MG CAPSULE (FP) PO SCH (10:32)
[2019-09-07] MEDS: LOSARTAN POTASSIUM 50 MG TABLET (FP) PO SCH (10:32)
[2019-09-07] MEDS: GABAPENTIN 100 MG CAPSULE (FP) PO SCH (10:32)
[2019-09-07] MEDS: SERTRALINE HCL 50 MG TABLET (FP) PO SCH (10:32)
--- NOTE | 2019-09-07 10:41 | PN ---
Progress Note (short form) - Note Progress Note: Hospitalist Medicine Pain is better controlled. For OR at 2pm. Hep gtt was d/c at midnight Vitals 09/07/19 05:18 Temperature 98.4 F Pulse Rate 75 Respiratory 20 Rate Blood Pressure 118/56 L Physical Exam general: resting in bed, in no acute distress. pleasant. HEENT: NCAT, PERRLA neck: supple cardio: S1, S2 RRR. no r/m/g pulm: CTA b/l, no accessory m usage abdomen: obese. soft, nontender, nondistended MSK: +R knee brace w/ limited ROM. LLE 3/5 motor strength, 5/5 in UE. neuro: conservation educator 2-12 grossly intact Laboratory Tests 09/06/19 09/07/19 09/07/19 08:30 08:49 08:49 WBC 11.2 H Hgb 9.4 L Hct 28.1 L Plt Count 236 Sodium 131 L Potassium 4.7 Chloride 99 Carbon Dioxide 26 BUN 22.2 H Creatinine 0.9 Random Glucose 298 H Hemoglobin A1c % 8.0 H Imaging R Femur XR: tibial plateau fracture and jt effusion noted R knee XR: medial tibial plateau fracture with a fabella and possible loose bodies. R tibia/fibula XR: tibial plateau fx with joint effusion, flabella and joint fragments CXR (-) for acute path CT RLE w/o contrast: +comminuted fracture of the R tibial plateau Cardio: EKG: NSR, rate 82bpm, qtc 448ms Assessment/plan 59 y/o F with PMHx of DM, solitary kidney, HTN, HLD, hx of DVT (2 yrs ago), Asthma BIBEMS s/p witnessed fall. Found to have a +R comminuted fx of the R tibial plateau. # R comminuted fx of the R tibial plateau -for OR at 2 pm today -non-wt bearing -pain control: morphine 4mg q8h PRN for pain 7-10, or IV tylenol PRN breakthru -bowel regimen started: senna, colace, miralax -started gabapentin for nerve pain -no PT until after sx #hx DVT, PE - unprovoked -hold xarelto -follows w/ Dr. 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 restart diet per sx recs #PPX hep gtt held for sx #Dispo for sx at 2pm diet, recs, a/c post-op per sx <Gisella West - Last Filed: 09/07/19 18:49> - Note Progress Note: Seen and examined; agree with above aside from as supplemented by myself. Personally verified all jay historical and PE findings and independently reviewed all imaging and diagnostics Discussed findings with the indicated consulting services and the resident team. Seen preop; pain controlled, no new issues. No CP, SOB. Need final recs for resuming Xarelto prior to DC and to elucidate placement as will require PT. CM and SW onboard. Appreciiate surgical comanagement. 10 sys ROS done and neg aside from HPI. NAD AAO resting in bed NC AT EOMI PERRLA Trachea midline, no LN, no JVD HR wnl, +s1/2 Lungs CTAB, w/ sym exp NT ND +BS CN2-12 wnl, no fnd Normal mood, appropriate behavior No new rashes or breakdown noted A/P: Patient presents for surgical fixation following fall with prolonged admission secondary to AC use due to preexisting condition; placed on heparin ggt and now to OR. Agree with problem list as above. Will need rehab. Monitor postop glucose (d/w resident regarding HS check and adjusting long acting dose) and h/ h. Consider stereotyped causes of postoperative fever. Ensure incentive alexa , and obtain presumptive date of resuming AC once verified postoperative hemostasis. Full Code <Ishaan Montana - Last Filed: 09/08/19 01:03>
[2019-09-07] MEDS ORDERED: DEXAMETHASONE SOD PHOSPHATE/PF 10 MG/ML SDV ONE (14:12)
[2019-09-07] MEDS ORDERED: BUPIVACAINE HCL/PF 0.5% (5 MG/ML) 30 ML VIAL IJ ONE (14:12)
[2019-09-07] MEDS ORDERED: PROPOFOL 20 ML ONE ×2 (15:06→15:44)
[2019-09-07] MEDS ORDERED: MIDAZOLAM HCL 2 MG/2 ML SINGLE DOSE VIAL ONE (15:06)
[2019-09-07] MEDS ORDERED: fentaNYL CITRATE 250 MCG/5 ML VIAL ONE (15:06)
[2019-09-07] MEDS ORDERED: ROCURONIUM BROMIDE 50 MG/5 ML SYRINGE ONE ×2 (15:07→15:48)
[2019-09-07] MEDS ORDERED: HEPARIN NA (PORCINE) 5,000 UNITS/ML 1ML VIAL ONE (15:15)
[2019-09-07] MEDS ORDERED: DEXMEDETOMIDINE HCL 200 MCG/2 ML IVPB ONE (15:19)
[2019-09-07] MEDS ORDERED: ceFAZolin SODIUM 1 GM VIAL IVPB ONE (15:20)
[2019-09-07] MEDS ORDERED: ceFAZolin SODIUM 1 GM VIAL ONE (15:20)
[2019-09-07] MEDS ORDERED: HYDROmorphone HCl 2 MG/ML VIAL ONE (15:45)
[2019-09-07] MEDS ORDERED: METOPROLOL TARTRATE 5 MG/5 ML VIAL ONE (16:10)
[2019-09-07] MEDS ORDERED: ALBUTEROL SO4 8 GM HFA INHALER IH ONE (16:30)
[2019-09-07] MEDS ORDERED: GLYCOPYRROLATE 0.2 MG/1 ML VIAL ONE (16:52)
[2019-09-07] MEDS ORDERED: NEOSTIGMINE METHYLSULFATE 0.5 MG/ML - 10 ML MDV ONE (16:52)
--- NOTE | 2019-09-07 17:08 | OP ---
Operative Note - Note: Operative Date: 09/07/19 [facility] Pre-Operative Diagnosis: right medial tibial plateau fx, postero-lateral corner injury Operation: right medial tibial plateau ORIF, iliac crest bone grafting, postero- lateral corner repair Post-Operative Diagnosis: Same as Pre-op Surgeon: Calin Avila Feller Hand: Anup Reilly Anesthesiologist/CEILING INSTALLER: Angelica Adams Anesthesia: General Estimated Blood Loss (mls): 50 (tourniquet)
[2019-09-07] MEDS ORDERED: ONDANSETRON 4 MG/2 ML VIAL IVPUSH PRN (17:38)
[2019-09-07] MEDS ORDERED: ALBUTEROL SO4 8 GM HFA INHALER IH PRN (17:43)
[2019-09-07] MEDS ORDERED: LACTATED RINGERS SOLUTION 1,000 ML IV SCH (17:45)
--- NOTE | 2019-09-07 18:04 | CONS ---
ORTHOPAEDIC CONSULTATION DATE OF CONSULTATION: 09/07/2019 HISTORY: Patient is a 59-year-old female diabetic status post injury 4 days ago. She was seen by my partner, Dr. Washington, and diagnosed as having a medial tibial plateau fracture on her right side. Was admitted to the hospital with a knee immobilizer. Patient was on Eliquis and, therefore, operative intervention needed to be delayed until the effects of the Eliquis were reversed. The patient was stopped on her Eliquis and placed on IV heparin and awaiting for her consultation today. I evaluated her in the holding area prior to the surgery, and I had a long discussion with the patient and her daughter regarding her condition. PHYSICAL EXAMINATION: She has a great deal of swelling around her knee. Calf, however, is soft and nontender. She has significant instability varus, valgus. Anterior, posterior is okay, 2+ pulses distally. She has a good plantar flexion but some weakness and difficulty extending her toe and dorsiflexing her ankle. Thigh is okay. She has, otherwise, good range of motion ankle and toes. X-rays, which are reviewed before the operation, showed that she had a medial tibial plateau fracture that was depressed and displaced. She had questionable some comminution in the posterolateral corner. This was further seen on CAT scan that was done upon admission. IMPRESSION: Right medial tibial plateau fracture with a questionable posterolateral corner injury as well and questionable chronic or acute perineal nerve injury. PLAN: Risks, benefits, and alternatives were discussed with the patient and with the daughter in great detail. Patient was going to be brought to the OR today for open reduction internal fixation of the medial side with elevation and bone grafting and, if necessary, posterolateral exploration and repair. DARYA BOYKIN M.D. [id number]
--- NOTE | 2019-09-07 18:22 | OP ---
DATE OF OPERATION: 09/07/2019 PREOPERATIVE DIAGNOSIS: Displaced and depressed right medial tibial plateau fracture with questionable posterolateral corner injury. POSTOPERATIVE DIAGNOSIS: Displaced and depressed right medial tibial plateau fracture with questionable posterolateral corner injury. PROCEDURE: Open reduction internal fixation, right medial tibial plateau fracture with iliac crest aspiration and possible posterolateral corner repair. SURGICAL ATTENDING: Calin Avila MD DRIED FRUIT WASHER: DEVON Millard ANESTHESIA: General with endotracheal intubation. POSITION: Supine. CLOSURE: A medial tibial plateau periarticular plate from Shabbir with appropriate screws, 2 corkscrew anchors with No. 2 FiberWire suture for posterolateral corner, 0 Vicryl fascia, 2-0 for subcutaneous, and steve for skin. ESTIMATED BLOOD LOSS: Less than 100 mL. COMPLICATIONS: None. TOURNIQUET TIME: Approximately an hour and a half. DESCRIPTION OF OPERATIVE PROCEDURE: Patient was taken to the operating room on September 07, 2019. General anesthesia with endotracheal intubation was administered by the anesthesiologist. IV Kefzol was administered prophylactically prior to the case. Well-padded pneumatic tourniquet was placed on the right proximal thigh. Right lower extremity was prepped and draped in the usual sterile fashion. First, a curved, longitudinal incision over the anteromedial aspect of the proximal tibia was incised. It was along the crest of the tibia then turned posteriorly at the level of the joint then slightly angling more proximally. Hemostasis was achieved with electrocautery. This was done after the tourniquet was inflated to 275 mmHg. Flaps were made medial, lateral at this point in procedure. The fascia was opened on the medial parapatellar region down to the level of the fracture. The periosteal was left on the displaced medial tibial fragment. It was flipped more medially exposing the fracture underneath. There was some depression of the remaining articular surface, which was elevated. Bone graft was placed underneath that fragment to elevate up the plateau (prior to opening the knee, the right iliac crest was prepped and draped. A large needle was placed into the iliac crest to aspirate out iliac crest cells. These were used and mixed with cancellous bone chips then used as the bone graft for the procedure). The medial fragment was then hinged back onto the regular tibia and elevated to its appropriate level. A medial tibial plateau plate from Amo was placed on top of the periosteum with the periosteal elevator placed on the medial side of the tibia. It was held provisionally with 2 K-wires. Fluoroscopy revealed excellent position of the plate with good restitution of the height of the medial plateau. One nonlocking screw was placed in the oblong hole to cinch the plate down to the bone and to ensure the appropriate height of the plate. Multiple proximal and distal locking screws were then drilled and then screwed with the appropriate length of screws achieving excellent buttress effect to the medial plateau. Fluoroscopy in the AP and lateral view revealed excellent position of the hardware with excellent cheondoism of the medial tibial height. This wound was irrigated and then the fascia was closed loosely with 0 Vicryl, 2-0 for subcutaneous, and steve for skin. Fluoroscopy revealed that although the medial plateau was elevated stressing it in a varus stress revealed significant opening on the lateral side revealing a posterolateral corner injury. It was, therefore, decided to repair the posterolateral corner as well. A curved longitudinal incision, which was made along the fibula head proximally and then curved along the longitudinal access of the thigh was incised. Hemostasis was achieved with Bovie cautery. Once the subcutaneous layer was opened, hematoma from the knee was expressed. Digital palpation revealed completely avulsion of the lateral ligament structures from the tibia and from the fibula head. There was a small avulsion fracture from the tip of the fibular head that still had the lateral structures attached to it. The biceps tendon was found to have been completely avulsed off. It was still attached to the fibula but had ripped off the biceps. Posterior to that, the peroneal nerve was clearly visualized running posterior to this area, and it was stripped of some of its soft tissue from the injury itself. We gently retracted the peroneal nerve away from the area of the operative field in order not to damage it further during the procedure. We initially tried to put anchors in the fibula head itself, but the osteoporosis nature of the bone was not strong enough to get fixation with the anchors. The anchors kept on pulling out of the fibula. We, therefore, put 2 corkscrew anchors in the tibia, 1 more anteriorly and 1 more posteriorly. Used the No. 2 FiberWire sutures on there to weave it through the lateral ligamentous structures and re-attach it to the proximal tibia. After fixating that, we stressed it and found that there was good stability to the lateral aspect of the knee. The biceps tendon, which was still attached to the fibular head but was free floating, was weaved into the repair as adjuvant fixation to the repair. The knee was irrigated. The subcutaneous was closed using 2-0 Vicryl and steve for skin. Sterile pressure dressing was applied followed by a knee immobilizer. Tourniquet was deflated. Total tourniquet time was less than 90 minutes. No complications. Thompson [id number]
[2019-09-07] MEDS ORDERED: ACETAMINOPHEN INJECTION 100 ML IVPB ONE (18:26)
[2019-09-07] MEDS: SENNOSIDES 8.6MG TABLET (FP) PO SCH (21:34)
[2019-09-07] MEDS: ATORVASTATIN CA 20 MG TABLET (FP) PO SCH (21:35)
[2019-09-07] MEDS: MONTELUKAST NA 10 MG TABLET PO SCH (21:35)
[2019-09-07] MEDS ORDERED: INSULIN (LEVEMIR) 100 UNITS/ML UNITS SQ SCH (22:00)
[2019-09-08] MEDS: ACETAMINOPHEN 1000 MG/100 ML VIAL (NON FORMULARY) IVPB PRN (01:20)
[2019-09-08] MEDS: morphine SULFATE 4 MG/ML VIAL IVPUSH PRN ×2 (06:04→13:55)
[2019-09-08] MEDS: INSULIN SLIDING SCALE (NOVOLOG) 1 VIAL SQ SCH ×4 (06:05→21:21)
--- NOTE | 2019-09-08 07:57 | PN ---
Progress Note (short form) - Note Progress Note: Anesthesia Post Op Note Pt seen s/p GA for tibial plat ORIF Pt awake alert - c/o of moderate pain denies n/v, no puritis, no urinary retention VSS no apparent anesthesia complications suggest addition of ibuprofen and percocet to regimen Ghazal Gamboa.
[2019-09-08 08:57] LABS: BASO % 0.5 % (0-2.0); EOS % 0.4 % (0-4.5); HEMATOCRIT 25.2 % (32.4-45.2); HEMOGLOBIN 8.5 GM/dL (10.7-15.3); LYMPH % 16.8 % (8-40); MCH 28.2 pg (25.7-33.7); MCHC 33.9 g/dl (32.0-36.0); MEAN CELL VOLUME 83.1 fl (80-96); MEAN PLT VOLUME 8.7 fl (7.5-11.1); MONO % 11.4 % (3.8-10.2); NEUT % 70.9 % (42.8-82.8); PLATELET COUNT 217 K/MM3 (134-434); RBC 3.03 M/mm3 (3.60-5.2); RDW 14.4 % (11.6-15.6); WHITE BLOOD COUNT 11.4 K/mm3 (4.0-10.0)
[2019-09-08] MEDS ORDERED: PT OWN MED DRAWER 7, Y5N ONE (10:09)
[2019-09-08] MEDS: METOPROLOL TARTRATE 25 MG TABLET (FP) PO SCH ×2 (10:10→21:20)
[2019-09-08] MEDS: GABAPENTIN 100 MG CAPSULE (FP) PO SCH (10:10)
[2019-09-08] MEDS: SERTRALINE HCL 50 MG TABLET (FP) PO SCH (10:11)
[2019-09-08] MEDS: LOSARTAN POTASSIUM 50 MG TABLET (FP) PO SCH (10:11)
[2019-09-08] MEDS: DOCUSATE SODIUM 100 MG CAPSULE (FP) PO SCH (10:11)
[2019-09-08] MEDS: POLYETHYLENE GLYCOL 3350 119 GM BTL PO SCH (10:12)
[2019-09-08 10:21] LABS: BLOOD UREA NITROGEN 17.8 mg/dL (7-18); CALCIUM 9.1 mg/dL (8.5-10.1); CREATININE 0.9 mg/dL (0.55-1.3); POTASSIUM 4.4 mmol/L (3.5-5.1)
[2019-09-08] MEDS: RIVAROXABAN 10 MG TABLET PO SCH (11:38)
--- NOTE | 2019-09-08 11:42 | PN ---
Progress Note (short form) - Note Progress Note: Hospitalist Medicine C/o pain in R knee. Has not passed flatus. Resting in bed, w/ knee immobilizer. a/c restarted by surgery Vitals 09/08/19 05:55 Temperature 99.2 F Pulse Rate 66 Respiratory 20 Rate Blood Pressure 130/66 Physical Exam general: resting in bed, in mild distress HEENT: NCAT, PERRLA neck: supple cardio: S1, S2 RRR. no r/m/g pulm: CTA b/l, no accessory m usage abdomen: obese. soft, nontender, nondistended MSK: +R knee immobilizer w/ limited ROM. LLE 3/5 motor strength, 5/5 in UE. + edema R foot neuro: forest officer 2-12 grossly intact Laboratory Tests 09/08/19 09/08/19 08:00 08:00 WBC 11.4 H Hgb 8.5 L Hct 25.2 L Plt Count 217 Sodium 131 L Potassium 4.4 Chloride 97 L BUN 17.8 Creatinine 0.9 Random Glucose 272 H Imaging R Femur XR: tibial plateau fracture and jt effusion noted R knee XR: medial tibial plateau fracture with a fabella and possible loose bodies. R tibia/fibula XR: tibial plateau fx with joint effusion, flabella and joint fragments CXR (-) for acute path CT RLE w/o contrast: +comminuted fracture of the R tibial plateau Cardio: EKG: NSR, rate 82bpm, qtc 448ms Assessment/plan 59 y/o F with PMHx of DM, solitary kidney, HTN, HLD, hx of DVT (2 yrs ago), Asthma BIBEMS s/p witnessed fall. Found to have a +R comminuted fx of the R tibial plateau. # R comminuted fx of the R tibial plateau- PO Day 1 -c/w incentive spirometer -pain control: morphine 4mg q8h PRN for pain 7-10, or PO tylenol PRN breakthru astrid 5q4h PRN for pain -may need additional pain control, per sx. call placed -c/w senna, colace, miralax -c/w gabapentin -no weight bearing on RLE #hx DVT, PE - unprovoked -restarted on xarelto by sx team -follows w/ Dr. 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 Personally verified all jay historical and PE findings and independently reviewed all imaging and diagnostics Discussed findings with the indicated consulting services and the resident team. Seen preop; pain controlled, no new issues. No CP, SOB. Need final recs for resuming Xarelto prior to DC and to elucidate placement as will require PT. CM and SW onboard. Appreciiate surgical comanagement. Discussed case at length with her daughter as well. 10 sys ROS done and neg aside from HPI. NAD AAO resting in bed NC AT EOMI PERRLA Trachea midline, no LN, no JVD HR wnl, +s1/2 Lungs CTAB, w/ sym exp NT ND +BS CN2-12 wnl, no fnd Normal mood, appropriate behavior No new rashes or breakdown noted Postoperatively, the knee appears without infection. Dressing is clean dry and intact. A/P: Patient continues to do well postoperatively, agree with above problem list. Resumed Xarelto, will follow up with orthopedics per their instructions and is working with physical therapy. Is pending placement. Discussed with case management. Full Code <Ishaan Montana - Last Filed: 09/10/19 14:00>
[2019-09-08] MEDS ORDERED: INSULIN (LEVEMIR) 100 UNITS/ML UNITS SQ SCH (11:46)
--- NOTE | 2019-09-08 14:44 | PN ---
Progress Note (short form) - Note Progress Note: Ortho Pt seen and examined s/p right medial tibial plateau ORIF, postero-lateral corner repair Selected Entries 09/08/19 13:32 Temperature 99.3 F Pulse Rate 92 H Respiratory 20 Rate Blood Pressure 147/68 Laboratory Tests 09/08/19 08:00 WBC 11.4 H Hgb 8.5 L Hct 25.2 L Plt Count 217 dressing c/d/i, + swelling, + foot drop a/p NWB RLE PT for crutch training pain control elevation d/c planning
[2019-09-08] MEDS: ACETAMINOPHEN 325 MG TABLET (FP) PO PRN (17:56)
[2019-09-08] MEDS ORDERED: RIVAROXABAN 10 MG TABLET PO SCH (18:00)
[2019-09-08] MEDS: ATORVASTATIN CA 20 MG TABLET (FP) PO SCH (21:19)
[2019-09-08] MEDS: MONTELUKAST NA 10 MG TABLET PO SCH (21:19)
[2019-09-08] MEDS: SENNOSIDES 8.6MG TABLET (FP) PO SCH (21:19)
[2019-09-09] MEDS: oxyCODONE HCL 5 MG TABLET PO PRN ×2 (00:18→20:19)
[2019-09-09] MEDS: ACETAMINOPHEN 325 MG TABLET (FP) PO PRN ×2 (00:19→20:18)
[2019-09-09] MEDS: morphine SULFATE 4 MG/ML VIAL IVPUSH PRN ×2 (05:00→14:21)
[2019-09-09] MEDS: INSULIN SLIDING SCALE (NOVOLOG) 1 VIAL SQ SCH ×4 (06:43→22:13)
[2019-09-09 09:08] LABS: HEMATOCRIT 25.6 % (32.4-45.2); HEMOGLOBIN 8.5 GM/dL (10.7-15.3); MCH 27.5 pg (25.7-33.7); MCHC 33.2 g/dl (32.0-36.0); MEAN PLT VOLUME 8.7 fl (7.5-11.1); PLATELET COUNT 265 K/MM3 (134-434); RBC 3.09 M/mm3 (3.60-5.2); RDW 14.6 % (11.6-15.6); WHITE BLOOD COUNT 12.4 K/mm3 (4.0-10.0)
[2019-09-09 09:23] LABS: BLOOD UREA NITROGEN 18.2 mg/dL (7-18); CALCIUM 9.1 mg/dL (8.5-10.1); CREATININE 0.9 mg/dL (0.55-1.3)
[2019-09-09] MEDS: LOSARTAN POTASSIUM 50 MG TABLET (FP) PO SCH (10:01)
[2019-09-09] MEDS: SERTRALINE HCL 50 MG TABLET (FP) PO SCH (10:01)
[2019-09-09] MEDS: DOCUSATE SODIUM 100 MG CAPSULE (FP) PO SCH (10:01)
[2019-09-09] MEDS: ACETAMINOPHEN 1000 MG/100 ML VIAL (NON FORMULARY) IVPB PRN ×2 (10:02→22:05)
[2019-09-09] MEDS: POLYETHYLENE GLYCOL 3350 119 GM BTL PO SCH (10:03)
[2019-09-09] MEDS: GABAPENTIN 100 MG CAPSULE (FP) PO SCH (10:03)
[2019-09-09] MEDS: METOPROLOL TARTRATE 25 MG TABLET (FP) PO SCH ×2 (10:03→22:05)
[2019-09-09] MEDS: RIVAROXABAN 10 MG TABLET PO SCH (10:09)
--- NOTE | 2019-09-09 10:40 | PN ---
DATE OF VISIT: DATE OF DICTATION: 09/09/2019 LOCATION: [facility]/Orthopedics SUBJECTIVE: Patient is now 2 days status post open reduction and internal fixation right medial tibial plateau and repair of posterolateral corner. OBJECTIVE: Patient saw comfortable in the knee immobilizer. Calf is soft, nontender. Brisk capillary refill distally. Patient's footdrop has yet not resolved, and she has good plantarflexion but no active dorsiflexion and no extension of the great toe. PLAN: I will arrange for the patient to get an AFO and set the patient up with physical therapy nonweightbearing. Patient is stable to be transferred to a rehab facility. Thompson [id number]
[2019-09-09] MEDS ORDERED: INSULIN (NOVOLOG) ASPART 100 UNITS/ML 10ML VIAL ONE ×2 (11:20→16:59)
--- NOTE | 2019-09-09 13:02 | PN ---
Progress Note (short form) - Note Progress Note: Hospitalist Medicine Resting in bed, feeling better. Improved PO intake. Spoke to daughter over phone. Per SW, [facility] is being sent, and pt needs auth. Vitals 09/09/19 10:00 Temperature 98.7 F Pulse Rate 66 Respiratory 18 Rate Blood Pressure 134/66 Physical Exam general: resting in bed, in no acute distress. pleasant. HEENT: NCAT, PERRLA neck: supple cardio: S1, S2 RRR. no r/m/g pulm: CTA b/l, no accessory m usage abdomen: obese. soft, nontender, nondistended MSK: +R knee brace w/ limited ROM. LLE 3/5 motor strength, 5/5 in UE. neuro: deep fat cook fry 2-12 grossly intact Laboratory Tests 09/09/19 09/09/19 08:12 08:12 WBC 12.4 H Hgb 8.5 L Hct 25.6 L Plt Count 265 D Sodium 133 L Potassium 4.0 Chloride 99 Anion Gap 5 L BUN 18.2 H Creatinine 0.9 Random Glucose 277 H Imaging R Femur XR: tibial plateau fracture and jt effusion noted R knee XR: medial tibial plateau fracture with a fabella and possible loose bodies. R tibia/fibula XR: tibial plateau fx with joint effusion, flabella and joint fragments CXR (-) for acute path CT RLE w/o contrast: +comminuted fracture of the R tibial plateau Cardio: EKG: NSR, rate 82bpm, qtc 448ms Assessment/plan 59 y/o F with PMHx of DM, solitary kidney, HTN, HLD, hx of DVT (2 yrs ago), Asthma BIBEMS s/p witnessed fall. Found to have a +R comminuted fx of the R tibial plateau. # R comminuted fx of the R tibial plateau- PO Day 3 -c/w incentive spirometer -pain control: morphine 4mg q8h PRN for pain 7-10, or PO tylenol PRN breakthru astrid 5q4h PRN for pain -c/w senna, colace, miralax -c/w gabapentin -no weight bearing on RLE -PT #hx DVT, PE - unprovoked -restarted on xarelto by sx team -follows w/ Dr. Perdue as outpt #HLD -c/w statin #HTN- uncontrolled -likely 2/2 pain -c/w losartan #NIDDM -hold home agents -levemir 22u SQ HS will adjust accordingly, as pt increases PO intake -a1c 8% -c/w ISS, BGM ACHS #asthma -not in exacerbation -c/w ventolin PRN, singulair #solitary kidney -congenital -c/t monitor #F/E/N have d/c IVF continue to follow lytes diabetic/ na controlled diet #PPX on xarelto #Dispo awaiting authorization/ [facility] sent for SNF/rehab <Gisella West - Last Filed: 09/09/19 17:11> - Note Progress Note: Seen and examined; agree with above aside from as supplemented by myself. Personally verified all jay historical and PE findings and independently reviewed all imaging and diagnostics Discussed findings with the indicated consulting services and the resident team. No new complaints; denies worsening pain or edema. No CP, SOB, etc. Passing flatus. Pain is controlled. She called her daughter again and requested I update her. 10 sys ROS done and neg aside from HPI. NAD AAO resting in bed NC AT EOMI PERRLA Trachea midline, no LN, no JVD HR wnl, +s1/2 Lungs CTAB, w/ sym exp NT ND +BS CN2-12 wnl, no fnd Normal mood, appropriate behavior No new rashes or breakdown noted Postoperatively, the knee appears without infection. Dressing is clean dry and intact. There is some swelling and tenderness that is unchanged from prior exam and she appears stable. No postoperative complications. No new diagnostics A/P: Patient continues to do well postoperatively, agree with above problem list. Resumed Xarelto, will follow up with orthopedics per their instructions and is working with physical therapy. Is pending placement. Discussed with case management. Still pending authorization. Medically stable for DC when accepted. Full Cod <Ishaan Montana - Last Filed: 09/10/19 14:03>
[2019-09-09] MEDS ORDERED: INSULIN (LEVEMIR) 100 UNITS/ML UNITS SQ SCH (22:00)
[2019-09-09] MEDS: MONTELUKAST NA 10 MG TABLET PO SCH (22:05)
[2019-09-09] MEDS: SENNOSIDES 8.6MG TABLET (FP) PO SCH (22:05)
[2019-09-09] MEDS: ATORVASTATIN CA 20 MG TABLET (FP) PO SCH (22:05)
[2019-09-10] MEDS: ACETAMINOPHEN 325 MG TABLET (FP) PO PRN ×2 (05:18→20:52)
[2019-09-10] MEDS: morphine SULFATE 4 MG/ML VIAL IVPUSH PRN (05:19)
[2019-09-10] MEDS: INSULIN SLIDING SCALE (NOVOLOG) 1 VIAL SQ SCH ×4 (06:38→21:06)
[2019-09-10] MEDS ORDERED: INSULIN (LEVEMIR) 100 UNITS/ML UNITS SQ SCH (08:59)
[2019-09-10 09:01] LABS: BASO % 0.8 % (0-2.0); EOS % 3.1 % (0-4.5); HEMATOCRIT 25.5 % (32.4-45.2); HEMOGLOBIN 8.6 GM/dL (10.7-15.3); LYMPH % 21.9 % (8-40); MCH 28.4 pg (25.7-33.7); MCHC 33.6 g/dl (32.0-36.0); MEAN CELL VOLUME 84.4 fl (80-96); MEAN PLT VOLUME 8.5 fl (7.5-11.1); MONO % 6.7 % (3.8-10.2); NEUT % 67.5 % (42.8-82.8); PLATELET COUNT 320 K/MM3 (134-434); RBC 3.02 M/mm3 (3.60-5.2); RDW 14.4 % (11.6-15.6); WHITE BLOOD COUNT 9.8 K/mm3 (4.0-10.0)
[2019-09-10 09:41] LABS: BLOOD UREA NITROGEN 27.5 mg/dL (7-18); CALCIUM 9.1 mg/dL (8.5-10.1); PHOSPHOROUS 4.4 mg/dL (2.5-4.9); POTASSIUM 4.2 mmol/L (3.5-5.1)
[2019-09-10] MEDS ORDERED: PT OWN MED DRAWER 7, Y5N ONE (10:02)
[2019-09-10] MEDS: LOSARTAN POTASSIUM 50 MG TABLET (FP) PO SCH (10:03)
[2019-09-10] MEDS: SERTRALINE HCL 50 MG TABLET (FP) PO SCH (10:03)
[2019-09-10] MEDS: GABAPENTIN 100 MG CAPSULE (FP) PO SCH (10:03)
[2019-09-10] MEDS: POLYETHYLENE GLYCOL 3350 119 GM BTL PO SCH (10:03)
[2019-09-10] MEDS: DOCUSATE SODIUM 100 MG CAPSULE (FP) PO SCH (10:03)
[2019-09-10] MEDS: RIVAROXABAN 10 MG TABLET PO SCH (10:03)
[2019-09-10] MEDS: METOPROLOL TARTRATE 25 MG TABLET (FP) PO SCH ×2 (10:03→21:13)
--- NOTE | 2019-09-10 11:11 | PN ---
Progress Note (short form) - Note Progress Note: Hospitalist Medicine Resting in bed, eating breakfast. C/o discomfort. Has been working with PT. Per SW, [facility] is being sent, and pt needs auth. Vitals 09/10/19 06:00 Temperature 98.4 F Pulse Rate 65 Respiratory 20 Rate Blood Pressure 129/57 L Physical Exam general: resting in bed, in no acute distress. pleasant. HEENT: NCAT, PERRLA neck: supple cardio: S1, S2 RRR. no r/m/g pulm: CTA b/l, no accessory m usage abdomen: obese. soft, nontender, nondistended MSK: +R knee brace w/ limited ROM. LLE 3/5 motor strength, 5/5 in UE. neuro: diver helper 2-12 grossly intact Laboratory Tests 09/10/19 09/10/19 08:15 08:15 WBC 9.8 Hgb 8.6 L Hct 25.5 L Plt Count 320 D Sodium 134 L Potassium 4.2 Chloride 99 Carbon Dioxide 27 BUN 27.5 H Creatinine 1.0 Random Glucose 311 H Calcium 9.1 Phosphorus 4.4 Magnesium 2.0 Imaging R Femur XR: tibial plateau fracture and jt effusion noted R knee XR: medial tibial plateau fracture with a fabella and possible loose bodies. R tibia/fibula XR: tibial plateau fx with joint effusion, flabella and joint fragments CXR (-) for acute path CT RLE w/o contrast: +comminuted fracture of the R tibial plateau Cardio: EKG: NSR, rate 82bpm, qtc 448ms Assessment/plan 59 y/o F with PMHx of DM, solitary kidney, HTN, HLD, hx of DVT (2 yrs ago), Asthma BIBEMS s/p witnessed fall. Found to have a +R comminuted fx of the R tibial plateau. # R comminuted fx of the R tibial plateau- PO Day 4 -c/w incentive spirometer -pain control: morphine 4mg q8h PRN for pain 7-10, or PO tylenol PRN breakthru astrid 5q4h PRN for pain -c/w senna, colace, miralax -c/w gabapentin -no weight bearing on RLE -PT #hx DVT, PE - unprovoked -on xarelto -follows w/ Dr. Perdue as outpt #HLD -c/w statin #HTN- uncontrolled -likely 2/2 pain -c/w losartan #NIDDM -hold home agents -levemir 25u SQ HS. uptitrated -a1c 8% -c/w ISS, BGM ACHS #asthma -not in exacerbation -c/w ventolin PRN, singulair #solitary kidney -congenital -c/t monitor #F/E/N off IVF continue to follow lytes diabetic/ na controlled diet #PPX on xarelto #Dispo awaiting authorization/ [facility] sent for SNF/rehab <Gisella West - Last Filed: 09/10/19 13:08> - Note Progress Note: Seen and examined; agree with above aside from as supplemented by myself. Personally verified all jay historical and PE findings and independently reviewed all imaging and diagnostics Discussed findings with the indicated consulting services and the resident team. No new events; still pending auth 10 sys ROS done and neg aside from HPI. NAD AAO resting in bed NC AT EOMI PERRLA Trachea midline, no LN, no JVD HR wnl, +s1/2 Lungs CTAB, w/ sym exp NT ND +BS CN2-12 wnl, no fnd Normal mood, appropriate behavior No new rashes or breakdown noted Postoperatively, the knee appears without infection. Dressing is clean dry and intact. There is some swelling and tenderness that is unchanged from prior exam and she appears stable. No postoperative complications. No new diagnostics A/P: Patient continues to do well postoperatively, agree with above problem list. Resumed Xarelto, will follow up with orthopedics per their instructions and is working with physical therapy. Is pending placement. Discussed with case management. Still pending authorization. Medically stable for DC when accepted. Full Cod <Ishaan Montana - Last Filed: 09/10/19 14:03>
[2019-09-10] MEDS: oxyCODONE HCL 5 MG TABLET PO PRN ×2 (13:15→18:13)
[2019-09-10] MEDS ORDERED: INSULIN (NOVOLOG) ASPART 100 UNITS/ML 10ML VIAL ONE (16:46)
[2019-09-10] MEDS: SENNOSIDES 8.6MG TABLET (FP) PO SCH (21:07)
[2019-09-10] MEDS: ACETAMINOPHEN 1000 MG/100 ML VIAL (NON FORMULARY) IVPB PRN (21:12)
[2019-09-10] MEDS: MONTELUKAST NA 10 MG TABLET PO SCH (21:13)
[2019-09-10] MEDS: ATORVASTATIN CA 20 MG TABLET (FP) PO SCH (21:13)
[2019-09-11] MEDS: oxyCODONE HCL 5 MG TABLET PO PRN ×3 (04:25→22:34)
[2019-09-11] MEDS: INSULIN SLIDING SCALE (NOVOLOG) 1 VIAL SQ SCH ×4 (06:06→22:26)
[2019-09-11] MEDS ORDERED: PT OWN MED DRAWER 7, Y5N ONE (09:08)
[2019-09-11] MEDS: METOPROLOL TARTRATE 25 MG TABLET (FP) PO SCH ×2 (09:10→22:27)
[2019-09-11] MEDS: LOSARTAN POTASSIUM 50 MG TABLET (FP) PO SCH (09:10)
[2019-09-11] MEDS: SERTRALINE HCL 50 MG TABLET (FP) PO SCH (09:10)
[2019-09-11] MEDS: GABAPENTIN 100 MG CAPSULE (FP) PO SCH (09:10)
[2019-09-11] MEDS: DOCUSATE SODIUM 100 MG CAPSULE (FP) PO SCH (09:13)
[2019-09-11] MEDS: POLYETHYLENE GLYCOL 3350 119 GM BTL PO SCH (09:15)
[2019-09-11] MEDS: RIVAROXABAN 10 MG TABLET PO SCH (09:15)
[2019-09-11 09:18] LABS: BASO % 1.1 % (0-2.0); EOS % 2.8 % (0-4.5); HEMATOCRIT 24.9 % (32.4-45.2); HEMOGLOBIN 8.5 GM/dL (10.7-15.3); LYMPH % 29.1 % (8-40); MCH 28.3 pg (25.7-33.7); MCHC 34.1 g/dl (32.0-36.0); MEAN CELL VOLUME 82.8 fl (80-96); MEAN PLT VOLUME 8.3 fl (7.5-11.1); MONO % 7.8 % (3.8-10.2); NEUT % 59.2 % (42.8-82.8); PLATELET COUNT 371 K/MM3 (134-434); RDW 14.5 % (11.6-15.6); WHITE BLOOD COUNT 8.4 K/mm3 (4.0-10.0)
[2019-09-11 09:45] LABS: CREATININE 0.9 mg/dL (0.55-1.3); PHOSPHOROUS 3.5 mg/dL (2.5-4.9); POTASSIUM 4.8 mmol/L (3.5-5.1)
[2019-09-11] MEDS ORDERED: INSULIN (NOVOLOG) ASPART 100 UNITS/ML 10ML VIAL ONE ×3 (12:18→22:21)
[2019-09-11] MEDS: ACETAMINOPHEN 325 MG TABLET (FP) PO PRN ×2 (12:20→18:13)
--- NOTE | 2019-09-11 13:11 | PN ---
Progress Note (short form) - Note Progress Note: Hospitalist Medicine Resting in bed. Improved pain. auth for SNF pending BGM have been uncontrolled because pt is eating food from home, despite counseling. States does not like food in hospital Vitals 09/11/19 09/11/19 05:00 11:18 Temperature 98 F Pulse Rate 78 Respiratory 18 Rate Blood Pressure 118/88 Physical Exam general: resting in bed, in no acute distress. pleasant. HEENT: NCAT, PERRLA neck: supple cardio: S1, S2 RRR. no r/m/g pulm: CTA b/l, no accessory m usage abdomen: obese. soft, nontender, nondistended MSK: +R knee brace w/ limited ROM. LLE 3/5 motor strength, 5/5 in UE. neuro: gold and silver assayer 2-12 grossly intact Laboratory Tests 09/11/19 09/11/19 08:10 08:10 WBC 8.4 Hgb 8.5 L Hct 24.9 L Plt Count 371 Sodium 134 L Potassium 4.8 Chloride 101 Carbon Dioxide 28 BUN 24.0 H Creatinine 0.9 Random Glucose 310 H Imaging R Femur XR: tibial plateau fracture and jt effusion noted R knee XR: medial tibial plateau fracture with a fabella and possible loose bodies. R tibia/fibula XR: tibial plateau fx with joint effusion, flabella and joint fragments CXR (-) for acute path CT RLE w/o contrast: +comminuted fracture of the R tibial plateau Cardio: EKG: NSR, rate 82bpm, qtc 448ms Assessment/plan 59 y/o F with PMHx of DM, solitary kidney, HTN, HLD, hx of DVT (2 yrs ago), Asthma BIBEMS s/p witnessed fall. Found to have a +R comminuted fx of the R tibial plateau. # R comminuted fx of the R tibial plateau- PO Day 5 -c/w incentive spirometer -pain control: PO tylenol PRN (works well for pt), astrid 5q4h PRN for pain -c/w senna, colace, miralax -c/w gabapentin -no weight bearing on RLE -PT #hx DVT, PE - unprovoked -on xarelto -follows w/ Dr. Perdue as outpt #HLD -c/w statin #HTN- uncontrolled -likely 2/2 pain -c/w losartan #NIDDM -hold home agents -levemir 25u SQ HS. uptitrated -a1c 8% -c/w ISS, BGM ACHS #asthma -not in exacerbation -c/w ventolin PRN, singulair #solitary kidney -congenital -c/t monitor #F/E/N off IVF continue to follow lytes diabetic/ na controlled diet #PPX on xarelto #Dispo awaiting authorization/ [facility] sent for SNF/rehab <Gisella West - Last Filed: 09/11/19 13:21> - Note Progress Note: Seen and examined; agree with above aside from as supplemented by myself. Personally verified all jay historical and PE findings and independently reviewed all imaging and diagnostics Discussed findings with the indicated consulting services and the resident team. No new events; still pending auth 10 sys ROS done and neg aside from HPI. NAD AAO resting in bed NC AT EOMI PERRLA Trachea midline, no LN, no JVD HR wnl, +s1/2 Lungs CTAB, w/ sym exp NT ND +BS CN2-12 wnl, no fnd Normal mood, appropriate behavior No new rashes or breakdown noted Postoperatively, the knee appears without infection. Dressing is clean dry and intact. There is some swelling and tenderness that is unchanged from prior exam and she appears stable. No postoperative complications. No new diagnostics A/P: Patient continues to do well postoperatively, agree with above problem list. Resumed Xarelto, will follow up with orthopedics per their instructions and is working with physical therapy. Is pending placement. Discussed with case management. Still pending authorization. Medically stable for DC when accepted. Per Ortho: Full Cod <Ishaan Montana - Last Filed: 09/12/19 08:29>
--- NOTE | 2019-09-11 15:18 | PN ---
Progress Note (short form) - Note Progress Note: Pt seen and examined. She is post op right tibial plateau ORIF, posterolateral corner repair. She is comfortable, in minimal pain. PE She states she has normal sensation throughout her right leg, ankle, and foot. Tested in both Maldivian and Chinese. She still is unable to actively plantar flex or dorsi flex the ankle or toes. Brace in place, not tight. Imp Doing well overall, but still with peroneal nerve palsy, foot drop, and lack of PF and flexion or extension of the toes. Rec I spoke at length with her daughter about the nerve damage, nerve palsy, inability to flex or extend the ankle and toes. She understands that the nerve was damaged at the time of the fracture. She also understands that we will wait and monitor the function of the ankle, and the possible, although not guaranteed, return of nerve function. She understands that the nerve function may not return, and that she may need an ankle brace to keep her foot up when she is walking, she may need additional surgery. She understands that there is nothing else to do at this time. P.THARDIK Parker for atleast the next 4 weeks Plan is to DC to a SNF
[2019-09-11] MEDS ORDERED: INSULIN (LEVEMIR) 100 UNITS/ML UNITS SQ SCH (22:00)
[2019-09-11] MEDS ORDERED: PANTOPRAZOLE 40 MG TABLET (FP) PO SCH (22:00)
[2019-09-11] MEDS: MONTELUKAST NA 10 MG TABLET PO SCH (22:26)
[2019-09-11] MEDS: ATORVASTATIN CA 20 MG TABLET (FP) PO SCH (22:26)
[2019-09-11] MEDS: SENNOSIDES 8.6MG TABLET (FP) PO SCH (22:27)
[2019-09-11] MEDS: PANTOPRAZOLE 40 MG TABLET (FP) PO SCH (22:27)
[2019-09-12] MEDS: oxyCODONE HCL 5 MG TABLET PO PRN ×4 (02:38→22:31)
[2019-09-12] MEDS: INSULIN SLIDING SCALE (NOVOLOG) 1 VIAL SQ SCH ×4 (06:00→21:40)
[2019-09-12] MEDS ORDERED: INSULIN (NOVOLOG) ASPART 100 UNITS/ML 10ML VIAL ONE ×2 (06:32→16:57)
--- NOTE | 2019-09-12 08:36 | PN ---
Physical Exam: SUBJECTIVE: Patient seen and examined; no new complaints. Neurological function remains at baseline but still not actively plantar flexing or dorsiflex toes on the affected side. Per Ortho" I spoke at length with her daughter about the nerve damage, nerve palsy, inability to flex or extend the ankle and toes. She understands that the nerve was damaged at the time of the fracture. She also understands that we will wait and monitor the function of the ankle, and the possible, although not guaranteed, return of nerve function. She understands that the nerve function may not return, and that she may need an ankle brace to keep her foot up when she is walking, she may need additional surgery. She understands that there is nothing else to do at this time." 10 sys ROS done and negative aside from HPI OBJECTIVE: Vital Signs Period Temp Pulse Resp BP Sys/Galarza Pulse Ox Last 24 Hr 98.0 F-98.7 F 70-84 18-20 118-137/60-88 95-95 GENERAL: The patient is awake, alert, and fully oriented, in no acute distress. HEAD: Normal with no signs of trauma. EYES: PERRL, extraocular movements intact, sclera anicteric, conjunctiva clear. No ptosis. ENT: Ears normal, nares patent, oropharynx clear without exudates, moist mucous membranes. NECK: Trachea midline, full range of motion, supple. LUNGS: Breath sounds equal, clear to auscultation bilaterally, no wheezes, no crackles, no accessory muscle use. HEART: Regular rate and rhythm, S1, S2 without murmur, rub or gallop. ABDOMEN: Soft, nontender, nondistended, normoactive bowel sounds, no guarding EXTREMITIES: 2+ pulses, warm, well-perfused, no edema. still is unable to actively plantar flex or dorsi flex the ankle or toes NEUROLOGICAL: Cranial nerves II through XII grossly intact. Normal speech, gait not observed. PSYCH: Normal mood, normal affect. SKIN: Warm, dry, normal turgor, no rashes or lesions noted Laboratory Results - last 24 hr 09/11/19 09/11/19 09/11/19 08:10 08:10 12:15 WBC 8.4 RBC 3.00 L Hgb 8.5 L Hct 24.9 L MCV 82.8 MCH 28.3 MCHC 34.1 RDW 14.5 Plt Count 371 MPV 8.3 Absolute Neuts (auto) 5.0 Neutrophils % 59.2 Lymphocytes % 29.1 D Monocytes % 7.8 Eosinophils % 2.8 Basophils % 1.1 Nucleated RBC % 0 Sodium 134 L Potassium 4.8 Chloride 101 Carbon Dioxide 28 Anion Gap 6 L BUN 24.0 H Creatinine 0.9 Est GFR (CKD-EPI)AfAm 81.69 Est GFR (CKD-EPI)NonAf 70.48 POC Glucometer 376 Random Glucose 310 H Calcium 9.0 Phosphorus 3.5 Magnesium 2.0 09/11/19 09/11/19 09/12/19 16:18 20:52 05:58 WBC RBC Hgb Hct MCV MCH MCHC RDW Plt Count MPV Absolute Neuts (auto) Neutrophils % Lymphocytes % Monocytes % Eosinophils % Basophils % Nucleated RBC % Sodium Potassium Chloride Carbon Dioxide Anion Gap BUN Creatinine Est GFR (CKD-EPI)AfAm Est GFR (CKD-EPI)NonAf POC Glucometer 239 366 322 Random Glucose Calcium Phosphorus Magnesium Active Medications Generic Name Dose Route Start Last Admin Trade Name Freq PRN Reason Stop Dose Admin Acetaminophen 650 mg 09/07/19 17:43 09/11/19 18:13 Tylenol - PO 650 mg Q6H PRN Administration PAIN LEVEL 4 - 6 Acetaminophen 1,000 mg 09/08/19 01:16 09/10/19 21:12 Ofirmev Injection - IVPB 1,000 mg Q12H PRN Administration PAIN LEVEL 6-10 Albuterol Sulfate 2 puff 09/07/19 17:43 09/11/19 23:23 Ventolin Hfa Inhaler - IH 2 puff Q4H PRN Administration ASTHMA Atorvastatin Calcium 20 mg 09/07/19 22:00 09/11/19 22:26 Lipitor - PO 20 mg HS KATARINA Administration Docusate Sodium 100 mg 09/08/19 10:00 09/11/19 09:13 Colace - PO Not Given DAILY KATARINA Fentanyl 50 mcg 09/07/19 17:38 09/07/19 19:30 Sublimaze Injection - IVPUSH 50 mcg [id number] PRN Administration PAIN-PACU ORDER X 4 DOSES ONLY Gabapentin 100 mg 09/08/19 10:00 09/11/19 09:10 Neurontin - PO 100 mg DAILY KATARINA Administration Insulin Aspart 1 vial 09/07/19 22:00 09/12/19 06:00 Novolog Vial Sliding Scale - SQ 8 units ACHS KATARINA Administration Protocol Insulin Detemir 28 units 09/11/19 22:00 09/11/19 22:26 Levemir Vial SQ 28 units HS KATARINA Administration Losartan Potassium 100 mg 09/08/19 10:00 09/11/19 09:10 Cozaar - PO 100 mg DAILY KATARINA Administration Metoprolol Tartrate 25 mg 09/07/19 22:00 09/11/19 22:27 Lopressor - PO 25 mg BID KATARINA Administration Montelukast Sodium 10 mg 09/07/19 22:00 09/11/19 22:26 Singulair - PO 10 mg HS KATARINA Administration Ondansetron HCl 4 mg 09/07/19 17:38 Zofran Injection IVPUSH Q6H PRN NAUSEA AND/OR VOMITING Oxycodone HCl 5 mg 09/08/19 14:44 09/12/19 02:38 Roxicodone - PO 5 mg Q4H PRN Administration PAIN LEVEL 7 - 10 Pantoprazole Sodium 40 mg 09/12/19 10:00 09/11/19 22:27 Protonix - PO Not Given DAILY COUNTS INCLUDE 234 BEDS AT THE [facility] Polyethylene Glycol 17 gm 09/08/19 10:00 09/11/19 09:15 Miralax (For Daily Use) - PO Not Given DAILY COUNTS INCLUDE 234 BEDS AT THE [facility] Rivaroxaban 10 mg 09/08/19 10:00 09/11/19 09:15 Xarelto PO 10 mg DAILY KATARINA Administration Senna 1 tab 09/07/19 22:00 09/11/19 22:27 Senna - PO 1 tab HS KATARINA Administration Sertraline HCl 100 mg 09/08/19 10:00 09/11/19 09:10 Zoloft - PO 100 mg DAILY KATARINA Administration R Femur XR: tibial plateau fracture and jt effusion noted R knee XR: medial tibial plateau fracture with a fabella and possible loose bodies. R tibia/fibula XR: tibial plateau fx with joint effusion, flabella and joint fragments CXR (-) for acute path CT RLE w/o contrast: +comminuted fracture of the R tibial plateau Cardio: EKG: NSR, rate 82bpm, qtc 448ms ASSESSMENT/PLAN: Still pending authorization; discussed with CM yesterday. Likely this / saturday. No new medical issues. Probelms include: -Tibial plateau fx s/p repair (Continue with PT recs, NWB x4 weeks) -Likely peroneal nerve palsy (Persistent deficits) -Morbid Obesity (Digital Tech prior to DC) -Depression (Continue with setraline) -Xarelto Use 2/2 DVT/PE hx (unprovoked per hx, FU op. No bleeding) -Hx HLD (Continue home statin) -Hx HTN -Hx Asthma (Continue PRN nebs, monteleukast) P.T., NWB for atleast the next 4 weeks Plan is to DC to a SNF Visit type - Emergency Visit Emergency Visit: Yes ED Registration Date: 09/02/19 Care time: The patient presented to the Emergency Department on the above date and was hospitalized for further evaluation of their emergent condition. - New Patient This patient is new to me today: No - Critical Care Critical Care patient: No
[2019-09-12] MEDS: SERTRALINE HCL 50 MG TABLET (FP) PO SCH (09:42)
[2019-09-12] MEDS: GABAPENTIN 100 MG CAPSULE (FP) PO SCH (09:44)
[2019-09-12] MEDS: LOSARTAN POTASSIUM 50 MG TABLET (FP) PO SCH (09:44)
[2019-09-12] MEDS: DOCUSATE SODIUM 100 MG CAPSULE (FP) PO SCH (09:44)
[2019-09-12] MEDS: PANTOPRAZOLE 40 MG TABLET (FP) PO SCH (09:44)
[2019-09-12] MEDS: POLYETHYLENE GLYCOL 3350 119 GM BTL PO SCH (09:44)
[2019-09-12] MEDS: RIVAROXABAN 10 MG TABLET PO SCH (09:45)
[2019-09-12] MEDS: METOPROLOL TARTRATE 25 MG TABLET (FP) PO SCH ×2 (09:45→21:39)
[2019-09-12] MEDS: ACETAMINOPHEN 325 MG TABLET (FP) PO PRN ×2 (11:39→20:00)
--- NOTE | 2019-09-12 19:26 | PN ---
Progress Note (short form) - Note Progress Note: Pt seen and examined. She does not have c/o pain. She has an ankle aircast in place. She now has active flexion of the toes and the foot/ankle (intact PF) She has extension of the toes. The only function she lacks at this moment is active DF of the ankle. Imp Right foot drop/no active ankle DF Rec P.T., WBAT, ROM exercises Con't with ankle aircast She may need an AFO
[2019-09-12] MEDS: MONTELUKAST NA 10 MG TABLET PO SCH (21:39)
[2019-09-12] MEDS: SENNOSIDES 8.6MG TABLET (FP) PO SCH (21:39)
[2019-09-12] MEDS: INSULIN (LEVEMIR) 100 UNITS/ML UNITS SQ SCH (21:39)
[2019-09-12] MEDS: ATORVASTATIN CA 20 MG TABLET (FP) PO SCH (21:39)
[2019-09-13] MEDS: ACETAMINOPHEN 325 MG TABLET (FP) PO PRN ×2 (02:20→09:40)
[2019-09-13] MEDS: oxyCODONE HCL 5 MG TABLET PO PRN ×4 (06:01→20:13)
[2019-09-13] MEDS: INSULIN SLIDING SCALE (NOVOLOG) 1 VIAL SQ SCH ×4 (06:01→21:33)
[2019-09-13] MEDS: GABAPENTIN 100 MG CAPSULE (FP) PO SCH (09:38)
[2019-09-13] MEDS: LOSARTAN POTASSIUM 50 MG TABLET (FP) PO SCH (09:38)
[2019-09-13] MEDS: PANTOPRAZOLE 40 MG TABLET (FP) PO SCH (09:38)
[2019-09-13] MEDS: METOPROLOL TARTRATE 25 MG TABLET (FP) PO SCH ×2 (09:38→21:33)
[2019-09-13] MEDS: SERTRALINE HCL 50 MG TABLET (FP) PO SCH (09:38)
[2019-09-13] MEDS: DOCUSATE SODIUM 100 MG CAPSULE (FP) PO SCH (09:38)
[2019-09-13] MEDS: POLYETHYLENE GLYCOL 3350 119 GM BTL PO SCH (09:51)
[2019-09-13] MEDS: RIVAROXABAN 10 MG TABLET PO SCH (09:52)
[2019-09-13] MEDS ORDERED: INSULIN (NOVOLOG) ASPART 100 UNITS/ML 10ML VIAL ONE ×3 (11:07→21:28)
--- NOTE | 2019-09-13 14:32 | PN ---
Physical Exam: SUBJECTIVE: Patient seen and examined; no new issues noted. She is hemodynamically stable and afebrile and awaiting placeement. No new complaints. She states that she feels that she can move her foot a little better. She is clear for DC from a medical perspective when authorization clears. 10 sys ROS done and negative aside from HPI OBJECTIVE: Vital Signs Period Temp Pulse Resp BP Sys/Galarza Pulse Ox Last 24 Hr 98.2 F-99 F 65-80 18-20 129-141/60-72 95-97 Exam is, in effect, unchanged from yesterday. She remains in good spirits. GENERAL: The patient is awake, alert, and fully oriented, in no acute distress. HEAD: Normal with no signs of trauma. EYES: PERRL, extraocular movements intact, sclera anicteric, conjunctiva clear. No ptosis. ENT: Ears normal, nares patent, oropharynx clear without exudates, moist mucous membranes. NECK: Trachea midline, full range of motion, supple. LUNGS: Breath sounds equal, clear to auscultation bilaterally, no wheezes, no crackles, no accessory muscle use. HEART: Regular rate and rhythm, S1, S2 without murmur, rub or gallop. ABDOMEN: Soft, nontender, nondistended, normoactive bowel sounds, no guarding EXTREMITIES: 2+ pulses, warm, well-perfused, no edema. still is unable to actively plantar flex or dorsi flex the ankle or toes NEUROLOGICAL: Cranial nerves II through XII grossly intact. Normal speech, gait not observed. PSYCH: Normal mood, normal affect. SKIN: Warm, dry, normal turgor, no rashes or lesions noted Laboratory Results - last 24 hr 09/12/19 09/12/19 09/13/19 16:55 20:33 05:29 POC Glucometer 275 354 238 09/13/19 11:04 POC Glucometer 388 Active Medications Generic Name Dose Route Start Last Admin Trade Name Freq PRN Reason Stop Dose Admin Acetaminophen 650 mg 09/07/19 17:43 09/13/19 09:40 Tylenol - PO 650 mg Q6H PRN Administration PAIN LEVEL 4 - 6 Albuterol Sulfate 2 puff 09/07/19 17:43 09/11/19 23:23 Ventolin Hfa Inhaler - IH 2 puff Q4H PRN Administration ASTHMA Atorvastatin Calcium 20 mg 09/07/19 22:00 09/12/19 21:39 Lipitor - PO 20 mg HS KATARINA Administration Docusate Sodium 100 mg 09/08/19 10:00 09/13/19 09:38 Colace - PO 100 mg DAILY KATARINA Administration Fentanyl 50 mcg 09/07/19 17:38 09/07/19 19:30 Sublimaze Injection - IVPUSH 50 mcg [id number] PRN Administration PAIN-PACU ORDER X 4 DOSES ONLY Gabapentin 100 mg 09/08/19 10:00 09/13/19 09:38 Neurontin - PO 100 mg DAILY KATARINA Administration Insulin Aspart 1 vial 09/07/19 22:00 09/13/19 11:07 Novolog Vial Sliding Scale - SQ 10 units ACHS KATARINA Administration Protocol Insulin Detemir 32 units 09/12/19 12:34 09/12/19 21:39 Levemir Vial SQ 32 iu HS KATARINA Administration Losartan Potassium 100 mg 09/08/19 10:00 09/13/19 09:38 Cozaar - PO 100 mg DAILY KATARINA Administration Metoprolol Tartrate 25 mg 09/07/19 22:00 09/13/19 09:38 Lopressor - PO 25 mg BID KATARINA Administration Montelukast Sodium 10 mg 09/07/19 22:00 09/12/19 21:39 Singulair - PO 10 mg HS KATARINA Administration Ondansetron HCl 4 mg 09/07/19 17:38 Zofran Injection IVPUSH Q6H PRN NAUSEA AND/OR VOMITING Oxycodone HCl 5 mg 09/13/19 10:56 09/13/19 11:00 Roxicodone - PO 5 mg Q4H PRN Administration PAIN 7-10 Pantoprazole Sodium 40 mg 09/12/19 10:00 09/13/19 09:38 Protonix - PO 40 mg DAILY KATARINA Administration Polyethylene Glycol 17 gm 09/08/19 10:00 09/13/19 09:51 Miralax (For Daily Use) - PO 17 gm DAILY KATARINA Administration Rivaroxaban 10 mg 09/08/19 10:00 09/13/19 09:52 Xarelto PO 10 mg DAILY KATARINA Administration Senna 1 tab 09/07/19 22:00 09/12/19 21:39 Senna - PO 1 tab HS KATARINA Administration Sertraline HCl 100 mg 09/08/19 10:00 09/13/19 09:38 Zoloft - PO 100 mg DAILY KATARINA Administration R Femur XR: tibial plateau fracture and jt effusion noted R knee XR: medial tibial plateau fracture with a fabella and possible loose bodies. R tibia/fibula XR: tibial plateau fx with joint effusion, flabella and joint fragments CXR (-) for acute path CT RLE w/o contrast: +comminuted fracture of the R tibial plateau Cardio: EKG: NSR, rate 82bpm, qtc 448ms ASSESSMENT/PLAN: Still pending authorization; discussed with CM yesterday. Likely this / saturday. No new medical issues. 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 No bleeding) -Hx HLD (Continue home statin) -Hx HTN -Hx Asthma (Continue PRN nebs, monteleukast) P.T., NWB for atleast the next 4 weeks Plan is to DC to a SNF Visit type - Emergency Visit Emergency Visit: Yes ED Registration Date: 09/02/19 Care time: The patient presented to the Emergency Department on the above date and was hospitalized for further evaluation of their emergent condition. - New Patient This patient is new to me today: No - Critical Care Critical Care patient: No
[2019-09-13] MEDS: INSULIN (LEVEMIR) 100 UNITS/ML UNITS SQ SCH (21:32)
[2019-09-13] MEDS: MONTELUKAST NA 10 MG TABLET PO SCH (21:33)
[2019-09-13] MEDS: ATORVASTATIN CA 20 MG TABLET (FP) PO SCH (21:33)
[2019-09-13] MEDS: SENNOSIDES 8.6MG TABLET (FP) PO SCH (21:33)
[2019-09-14] MEDS: oxyCODONE HCL 5 MG TABLET PO PRN ×5 (00:22→18:41)
[2019-09-14] MEDS: ACETAMINOPHEN 325 MG TABLET (FP) PO PRN (03:27)
[2019-09-14 05:16] VITALS: TEMP 98.5
[2019-09-14] MEDS: INSULIN SLIDING SCALE (NOVOLOG) 1 VIAL SQ SCH ×3 (06:31→17:12)
[2019-09-14] MEDS ORDERED: INSULIN (NOVOLOG) ASPART 100 UNITS/ML 10ML VIAL ONE (06:31)
--- NOTE | 2019-09-14 08:53 | PN ---
Progress Note (short form) - Note Progress Note: Ortho Pt seen and examined s/p right medial tibial plateau ORIF, postero-lateral corner repair Selected Entries 09/13/19 09/14/19 21:00 05:14 Temperature 98.5 F Pulse Rate 63 Respiratory 20 Rate Blood Pressure 131/59 L Laboratory Tests 09/11/19 08:10 WBC 8.4 Hgb 8.5 L Hct 24.9 L Plt Count 371 dressing c/d/i, + swelling, + foot drop a/p NWB RLE PT for crutch training will need AFO in future pain control elevation d/c planning for snf
[2019-09-14] MEDS: POLYETHYLENE GLYCOL 3350 119 GM BTL PO SCH (10:02)
[2019-09-14] MEDS: PANTOPRAZOLE 40 MG TABLET (FP) PO SCH (10:04)
[2019-09-14] MEDS: GABAPENTIN 100 MG CAPSULE (FP) PO SCH (10:04)
[2019-09-14] MEDS: SERTRALINE HCL 50 MG TABLET (FP) PO SCH (10:04)
[2019-09-14] MEDS: METOPROLOL TARTRATE 25 MG TABLET (FP) PO SCH (10:04)
[2019-09-14] MEDS: LOSARTAN POTASSIUM 50 MG TABLET (FP) PO SCH (10:04)
[2019-09-14] MEDS: RIVAROXABAN 10 MG TABLET PO SCH (10:04)
[2019-09-14] MEDS: DOCUSATE SODIUM 100 MG CAPSULE (FP) PO SCH (11:34)
[2019-09-14 13:25] LABS: BASO % 0.6 % (0-2.0); EOS % 1.7 % (0-4.5); HEMATOCRIT 26.6 % (32.4-45.2); HEMOGLOBIN 8.8 GM/dL (10.7-15.3); LYMPH % 24.9 % (8-40); MCH 27.4 pg (25.7-33.7); MCHC 32.9 g/dl (32.0-36.0); MEAN CELL VOLUME 83.2 fl (80-96); MONO % 5.8 % (3.8-10.2); PLATELET COUNT 521 K/MM3 (134-434); RDW 14.2 % (11.6-15.6); WHITE BLOOD COUNT 10.2 K/mm3 (4.0-10.0)
[2019-09-14 14:08] VITALS: BP 129/64; PULSE 75
--- NOTE | 2019-09-14 14:33 | PN ---
Progress Note (short form) - Note Progress Note: Hospitalist Medicine Seen at bedside with sx team. Pt c/o cont'd pain in RLE, however better controlled. PM levemir increased to 35u sq Vitals 09/14/19 14:07 Temperature 98.5 F Pulse Rate 75 Blood Pressure 129/64 Physical Exam general: resting in bed, in no acute distress. pleasant. HEENT: NCAT, PERRLA neck: supple cardio: S1, S2 RRR. no r/m/g pulm: CTA b/l, no accessory m usage abdomen: obese. soft, nontender, nondistended MSK: +R knee brace w/ limited ROM. LLE 3/5 motor strength, 5/5 in UE. neuro: bolt man 2-12 grossly intact Laboratory Tests 09/14/19 12:27 WBC 10.2 H Hgb 8.8 L Hct 26.6 L Plt Count 521 H D 09/13/19 09/13/19 09/14/19 16:50 21:30 06:02 POC Glucometer 274 286 257 09/14/19 11:31 POC Glucometer 361 Imaging R Femur XR: tibial plateau fracture and jt effusion noted R knee XR: medial tibial plateau fracture with a fabella and possible loose bodies. R tibia/fibula XR: tibial plateau fx with joint effusion, flabella and joint fragments CXR (-) for acute path CT RLE w/o contrast: +comminuted fracture of the R tibial plateau Cardio: EKG: NSR, rate 82bpm, qtc 448ms Assessment/plan 59 y/o F with PMHx of DM, solitary kidney, HTN, HLD, hx of DVT (2 yrs ago), Asthma BIBEMS s/p witnessed fall. Found to have a +R comminuted fx of the R tibial plateau. # R comminuted fx of the R tibial plateau -c/w incentive spirometer -pain control: PO tylenol PRN (works well for pt), astrid 5q4h PRN for pain -c/w senna, colace, miralax -c/w gabapentin -no weight bearing on RLE -PT #hx DVT, PE - unprovoked -on xarelto -follows w/ Dr. Perdue as outpt #HLD -c/w statin #HTN- uncontrolled -likely 2/2 pain -c/w losartan #NIDDM -hold home agents -levemir 35u SQ HS. uptitrated -pt counseled extensively -a1c 8% -c/w ISS, BGM ACHS #asthma -not in exacerbation -c/w ventolin PRN, singulair #solitary kidney -congenital -c/t monitor #F/E/N off IVF continue to follow lytes diabetic/ na controlled diet #PPX on xarelto #Dispo awaiting authorization/ MARY ANN sent for SNF/rehab <Gisella West - Last Filed: 09/14/19 14:33> - Note Progress Note: Seen and examined; I agree with thee above assessment and plan and DCS as documented. Discussed with resident and indicated subspecialists. Independently verified all jay historical elements and PE features. All questions answered. No further subjective issues; VS labs imaging reviewed NAD, AAO HR wnl, +s1/2 NT ND +BS Neuro baseline with no new FNDs or speech changes Agreee with resident asseesment and plan as documented above. Continue current txplan. <Ishaan Montana - Last Filed: 10/12/19 07:18>
--- NOTE | 2019-09-14 16:52 | DS ---
Physical Exam: SUBJECTIVE: Patient seen and examined at bedside. States that her pain has improved. D/w surgery team as well as daughter over phone. All questions answered. OBJECTIVE: Vital Signs Period Temp Pulse Resp BP Sys/Galarza Pulse Ox Last 24 Hr 98.5 F-98.8 F 63-75 20-20 120-131/56-65 97 Physical Exam general: resting in bed, in no acute distress. pleasant. HEENT: NCAT, PERRLA neck: supple cardio: S1, S2 RRR. no r/m/g pulm: CTA b/l, no accessory m usage abdomen: obese. soft, nontender, nondistended MSK: +R knee brace w/ limited ROM. LLE 3/5 motor strength, 5/5 in UE. neuro: finish painter 2-12 grossly intact LABS Laboratory Results - last 24 hr 09/13/19 09/13/19 09/14/19 16:50 21:30 06:02 WBC RBC Hgb Hct MCV MCH MCHC RDW Plt Count MPV Absolute Neuts (auto) Neutrophils % Lymphocytes % Monocytes % Eosinophils % Basophils % Nucleated RBC % POC Glucometer 274 286 257 09/14/19 09/14/19 11:31 12:27 WBC 10.2 H RBC 3.20 L Hgb 8.8 L Hct 26.6 L MCV 83.2 MCH 27.4 MCHC 32.9 RDW 14.2 Plt Count 521 H D MPV 8.0 Absolute Neuts (auto) 6.8 Neutrophils % 67.0 Lymphocytes % 24.9 Monocytes % 5.8 Eosinophils % 1.7 Basophils % 0.6 Nucleated RBC % 0 POC Glucometer 361 Imaging R Femur XR: tibial plateau fracture and jt effusion noted R knee XR: medial tibial plateau fracture with a fabella and possible loose bodies. R tibia/fibula XR: tibial plateau fx with joint effusion, flabella and joint fragments CXR (-) for acute path CT RLE w/o contrast: +comminuted fracture of the R tibial plateau Cardio: EKG: NSR, rate 82bpm, qtc 448ms HOSPITAL COURSE: Date of Admission:09/02/19 Date of Discharge: 09/14/19 Admission diagnosis: R comminuted fx of R tibial plateau 59 y/o F with PMHx of DM, solitary kidney, HTN, HLD, hx of DVT (2 yrs ago), Asthma BIBEMS s/p witnessed fall. Found to have a +R comminuted fx of the R tibial plateau. # R comminuted fx of the R tibial plateau- post-op -c/w incentive spirometer -pain control: PO tylenol PRN (works well for pt), astrid 5q4h PRN for pain while at facility -to receive AFO brace at facility, per sx -c/w senna, colace, miralax -c/w gabapentin -no weight bearing on RLE -PT, continue rehab at facility. crutch training #hx DVT, PE - unprovoked -c/w xarelto -follows w/ Dr. Perdue as outpt - cont f/u #HLD -c/w statin #HTN- uncontrolled -likely 2/2 pain -c/w losartan #NIDDM -hold home agents -levemir 35u SQ HS. uptitrated -a1c 8% -c/w ISS, BGM ACHS -will need improved BG control #asthma -not in exacerbation -c/w ventolin PRN, singulair #solitary kidney -congenital -c/t monitor Minutes to complete discharge: 55 <Gisella West - Last Filed: 09/14/19 16:49> Physical Exam: ATTENDING PHYSICIAN STATEMENT I saw and evaluated the patient. I reviewed the resident's note and discussed the case with the resident. I agree with the resident's findings and plan as documented. Independently reviewed all labs, imaging findings and test results. Independently verified all jay historical information and PE findings. Discussed DC planning with resident. No additional complaints per subjective information; stable and has reached maximal benefit from this hospitalization. VS labs imaging reviewed NAD AAO resting in bed HR wnl +s1/2 no mgr NT ND +BS Agree with DC planning as documentated including diet, followups, etc. <Ishaan Montana - Last Filed: 10/12/19 05:48> Discharge Summary Problems reviewed: Yes Reason For Visit: FALL Current Active Problems Tibial plateau fracture, right (Acute) - Home Medications Comprehensive Discharge Medication List: Ambulatory Orders Losartan Potassium 100 mg PO DAILY 07/11/16 Montelukast Na [Singulair -] 10 mg PO HS 07/11/16 Sertraline HCl [Zoloft] 100 mg PO DAILY 07/11/16 Simvastatin 40 mg PO HS 07/11/16 Rivaroxaban [Xarelto -] 10 mg PO DAILY 02/05/17 Albuterol Sulfate Inhaler - [Ventolin HFA Inhaler -] 1 - 2 inh PO Q4H PRN Acetaminophen [Tylenol .Regular Strength -] 650 mg PO Q6H PRN tablet 09/14/19 Docusate Sodium [Colace -] 100 mg PO DAILY capsule 09/14/19 Gabapentin [Neurontin -] 100 mg PO DAILY capsule 09/14/19 Insulin (Levemir) [Levemir Vial] 35 units SQ HS units 09/14/19 Insulin Sliding Scale [Novolog Vial Sliding Scale -] 1 vial SQ ACHS units 09/14 Metoprolol Tartrate [Lopressor -] 25 mg PO BID tablet 09/14/19 Pantoprazole Sodium [Protonix -] 40 mg PO DAILY tablet.ec 09/14/19 Polyethylene Glycol 3350 [Miralax 119 gm Btl -] 17 gm PO DAILY bottle 09/14/19 Sennosides [Senna -] 1 tab PO HS tablet 09/14/19 oxyCODONE HCL [Roxicodone -] 5 mg PO Q4H PRN tablet MDD 30 mg 09/14/19 <Gisella West - Last Filed: 09/14/19 16:49> Problems reviewed: Yes - Home Medications Comprehensive Discharge Medication List: Ambulatory Orders Losartan Potassium 100 mg PO DAILY 07/11/16 Montelukast Na [Singulair -] 10 mg PO HS 07/11/16 Sertraline HCl [Zoloft] 100 mg PO DAILY 07/11/16 Simvastatin 40 mg PO HS 07/11/16 Rivaroxaban [Xarelto -] 10 mg PO DAILY 02/05/17 Albuterol Sulfate Inhaler - [Ventolin HFA Inhaler -] 1 - 2 inh PO Q4H PRN Acetaminophen [Tylenol .Regular Strength -] 650 mg PO Q6H PRN tablet 09/14/19 Docusate Sodium [Colace -] 100 mg PO DAILY capsule 09/14/19 Gabapentin [Neurontin -] 100 mg PO DAILY capsule 09/14/19 Insulin (Levemir) [Levemir Vial] 35 units SQ HS units 09/14/19 Insulin Sliding Scale [Novolog Vial Sliding Scale -] 1 vial SQ ACHS units 09/14 Metoprolol Tartrate [Lopressor -] 25 mg PO BID tablet 09/14/19 Pantoprazole Sodium [Protonix -] 40 mg PO DAILY tablet.ec 09/14/19 Polyethylene Glycol 3350 [Miralax 119 gm Btl -] 17 gm PO DAILY bottle 09/14/19 Sennosides [Senna -] 1 tab PO HS tablet 09/14/19 oxyCODONE HCL [Roxicodone -] 5 mg PO Q4H PRN tablet MDD 30 mg 09/14/19 <Ishaan Montana - Last Filed: 10/12/19 05:48> Condition: Fair - Instructions Diet, Activity, Other Instructions: You were in the hospital because you fractured your tibia. You underwent a surgery with orthopedic surgeon, Dr. Avila. You were maintained on the floor, your pain was managed and you started physical therapy. You will continue your rehabilitation at your facility upon discharge. Medications 1. Your levemir night dose was increased to 35units from 25units. please continue careful blood glucose monitoring. While you are in the nursing facility, you will continue with the sliding scale ACHS. 2. You may use the following for pain control: -Tylenol 650mg by mouth every 6 hours for pain as needed (Pain scale 4-6) -Roxicodone 5mg every 4 hours for pain as needed (Pain scale 7-10) 3. While on the pain medications, you must continue your bowel regimen: senna, miralax and colace daily. 4. Continue to use your incentive spirometer. 5. You may continue your other medications. Please continue your xarelto during this time. Care You should not bear weight on your right leg. You will need physical therapy and crutch training. You will need an AFO brace which will be delivered to your facility. This was confirmed with the surgery team. You should elevate your leg when you are resting in bed. Follow-up appointments Please follow up with the following doctors upon your discharge: -Your primary care doctor, Dr. Rosalio Pate - 3-5 days to discuss your visit. You will also need better blood glucose control. -The orthopedic surgeon who did your surgery, Dr. Avila - in 3-5 days -your body fitter, Dr. Perdue - 1 week Referrals: Calin Avila MD [Staff Physician] - 1 Week Nette Moulton MD [Staff Physician] - 1 Week Rosalio Pate MD [Primary Care Provider] - 09/17/19 Fazal Washington MD [Staff Physician] - 09/17/19 [facility]: [facility] This patient is new to me today: No Emergency Visit: No Critical Care patient: No - Discharge Referral Referred to [facility] No <Gisella West - Last Filed: 09/14/19 16:49> This patient is new to me today: No Emergency Visit: No Critical Care patient: No - Discharge Referral Referred to [facility] No <Ishaan Montana - Last Filed: 10/12/19 05:48> ATTENDING PHYSICIAN STATEMENT I saw and evaluated the patient. I reviewed the resident's note and discussed the case with the resident. I agree with the resident's findings and plan as documented. SUBJECTIVE: OBJECTIVE: ASSESSMENT AND PLAN: <Gisella West - Last Filed: 09/14/19 16:49> ATTENDING PHYSICIAN STATEMENT I saw and evaluated the patient. I reviewed the resident's note and discussed the case with the resident. I agree with the resident's findings and plan as documented. SUBJECTIVE: OBJECTIVE: ASSESSMENT AND PLAN: <Ishaan Montana - Last Filed: 10/12/19 05:48>
[2019-09-14] MEDS ORDERED: INSULIN (LEVEMIR) 100 UNITS/ML UNITS SQ SCH (22:00)
== END 2019-09-14 19:17 | DRG 313 ==
LOC: JER 18:29 → JERBED 22:31 → J6S 23:46
PROVIDERS: ADMIT Internal Medicine; ATTEND Internal Medicine
PROC: 0QUG07Z Supplement Right Tibia with Autologous Tissue Substitute, Open Approach (ICD-10-PCS; 2019-09-07)
PROC: 01QH0ZZ Repair Peroneal Nerve, Open Approach (ICD-10-PCS; 2019-09-07)
PROC: 0QSG04Z Reposition Right Tibia with Internal Fixation Device, Open Approach (ICD-10-PCS; principal; 2019-09-07 14:00)
DX: S82.141A Displaced bicondylar fracture of right tibia, initial encounter for closed fracture (principal); S84.11XA Injury of peroneal nerve at lower leg level, right leg, initial encounter; E11.65 Type 2 diabetes mellitus with hyperglycemia; Q60.0 Renal agenesis, unilateral; E66.01 Morbid (severe) obesity due to excess calories; Z68.38 Body mass index [BMI] 38.0-38.9, adult; I10 Essential (primary) hypertension; E78.5 Hyperlipidemia, unspecified; Z86.718 Personal history of other venous thrombosis and embolism; J45.909 Unspecified asthma, uncomplicated; Z88.0 Allergy status to penicillin; D64.9 Anemia, unspecified; W01.0XXA Fall on same level from slipping, tripping and stumbling without subsequent striking against object, initial encounter; Y93.89 Activity, other specified; Y92.89 Other specified places as the place of occurrence of the external cause; Y99.8 Other external cause status; Z79.84 Long term (current) use of oral hypoglycemic drugs; Z86.711 Personal history of pulmonary embolism; F32.9 Major depressive disorder, single episode, unspecified; Z79.01 Long term (current) use of anticoagulants
CPT/HCPCS: 36415; 71045-TC-FY; 73552-TC-RT-FY; 73560-TC-RT-FY; 73590-TC-RT-FY; 73700-TC-RT; 76000-TC-FY; 80048; 80053; 82728; 82962; 83036; 83540; 83550; 83735; 84100; 85025; 85027; 85044; 85610; 85730; 86850; 86900; 86901; 93005; 93010; 94760; 97116-GP; 97162-GP; 99284-25; J0131; J1644

== ENCOUNTER 2021-03-22 09:59 | Day surgery (SDC) | payer OTHER ==
[2021-03-16 15:45] VITALS: BMI 37.4
[2021-03-22] MEDS ORDERED: MIDAZOLAM HCL 2 MG/2 ML SINGLE DOSE VIAL ONE ×5 (10:59→14:58)
[2021-03-22] MEDS ORDERED: BUPIVACAINE HCL 50 ML ONE ×2 (10:59→11:04)
[2021-03-22] MEDS ORDERED: BUPIVACAINE LIPOSOME/PF (EXPAREL) 266 MG/20 ML VIAL ONE (10:59)
[2021-03-22] MEDS ORDERED: SODIUM CHLORIDE 0.9% P/F 10 ML VIAL IJ ONE (11:00)
[2021-03-22] MEDS ORDERED: VANCOMYCIN 1,000 MG VIAL (RESTRICTED TO ID ONLY) ONE (11:59)
[2021-03-22] MEDS ORDERED: ceFAZolin SODIUM 1 GM VIAL ONE (12:46)
[2021-03-22] MEDS ORDERED: DEXAMETHASONE SOD PHOSPHATE 4 MG/1 ML VIAL ONE (12:46)
[2021-03-22] MEDS ORDERED: BUPIVICAINE 0.25%/MORPH PF/KETOROLAC - 51ML DISP.SYRINGE IA ONE ×2 (13:24→14:39)
[2021-03-22] MEDS ORDERED: ALBUTEROL SO4 HFA INHALER IH PRN ×2 (15:23→16:18)
[2021-03-22] MEDS ORDERED: ONDANSETRON 4 MG/2 ML VIAL IVPUSH PRN ×2 (15:28→15:52)
[2021-03-22] MEDS ORDERED: MAG HYDROX/AL HYDROX/SIMETH 30 ML UNIT-DOSE CUP PO PRN (15:28)
[2021-03-22] MEDS ORDERED: PATIENT'S OWN MEDICATION (NON-FORMULARY) (Semaglutide [Ozempic] 0.25 MG/0.2 ML Pen.Injctr) SQ SCH (15:30)
[2021-03-22] MEDS ORDERED: LACTATED RINGERS SOLUTION 1,000 ML IV SCH (15:30)
[2021-03-22] MEDS ORDERED: PROMETHAZINE HCL 25 MG/1 ML VIAL IVPUSH PRN (15:52)
[2021-03-22] MEDS ORDERED: CEFAZOLIN 2 GM/D5W 2 GM/50 ML ML IVPB SCH (18:00)
[2021-03-22] MEDS: CEFAZOLIN 2 GM/D5W 2 GM/50 ML ML IVPB SCH (21:05)
[2021-03-22] MEDS: ATORVASTATIN CA 20 MG TABLET (FP) PO SCH (21:05)
[2021-03-22] MEDS: MONTELUKAST NA 10 MG TABLET PO SCH (21:05)
[2021-03-22] MEDS: SENNOSIDES/DOCUSATE COMBO (SENNA PLUS) TABLET (UD) PO SCH (21:05)
[2021-03-22] MEDS: oxyCODONE HCL 5 MG TABLET PO PRN (21:29)
[2021-03-22] MEDS ORDERED: REFRIGERATED ANITBIOTICS ONE ×2 (22:18→22:47)
[2021-03-22] MEDS ORDERED: INSULIN SLIDING SCALE (NOVOLOG) 1 VIAL SQ ONE (22:46)
[2021-03-22] MEDS: INSULIN SLIDING SCALE (NOVOLOG) 1 VIAL SQ SCH (22:51)
[2021-03-23] MEDS ORDERED: LOCK ITEM NR ONE (01:51)
[2021-03-23] MEDS: CEFAZOLIN 2 GM/D5W 2 GM/50 ML ML IVPB SCH (05:19)
[2021-03-23] MEDS: metFORMIN HCL 500 MG TABLET (FP) PO SCH ×2 (06:35→17:16)
[2021-03-23] MEDS: glipiZIDE 10 MG TABLET (FP) PO SCH ×2 (06:35→17:16)
[2021-03-23] MEDS: INSULIN SLIDING SCALE (NOVOLOG) 1 VIAL SQ SCH ×4 (07:24→21:26)
[2021-03-23 07:36] LABS: HEMATOCRIT 26.8 % (32.4-45.2); HEMOGLOBIN 8.6 GM/dl (10.7-15.3); MCH 27.8 pg (25.7-33.7); MEAN CELL VOLUME 86.8 fl (80-96); MEAN PLT VOLUME 8.4 fl (7.5-11.1); PLATELET COUNT 221 K/MM3 (134-434); RBC 3.09 M/mm3 (3.60-5.2); RDW 13.9 % (11.6-15.6); WHITE BLOOD COUNT 7.3 K/mm3 (4.0-10.8)
[2021-03-23 07:54] LABS: CALCIUM 8.7 mg/dl (8.5-10); CREATININE 1.2 mg/dl (0.55-1.3)
[2021-03-23] MEDS: oxyCODONE HCL 5 MG TABLET PO PRN ×5 (08:11→22:39)
[2021-03-23] MEDS ORDERED: PATIENT'S OWN MEDICATION (NON-FORMULARY) (Omeprazole [Omeprazole] 20 MG Tablet.Dr) PO SCH (10:00)
[2021-03-23] MEDS ORDERED: METOPROLOL TARTRATE 25 MG TABLET (FP) PO SCH (10:00)
[2021-03-23] MEDS: SERTRALINE HCL 50 MG TABLET (FP) PO SCH (10:02)
[2021-03-23] MEDS: SENNOSIDES/DOCUSATE COMBO (SENNA PLUS) TABLET (UD) PO SCH ×2 (10:03→22:40)
[2021-03-23] MEDS: MULTIVITAMINS (DAILY MVI) TABLET (FP) PO SCH (10:03)
[2021-03-23] MEDS: GABAPENTIN 300 MG CAPSULE PO SCH (10:03)
[2021-03-23] MEDS: LOSARTAN POTASSIUM 50 MG TABLET PO SCH (10:04)
[2021-03-23] MEDS: PANTOPRAZOLE 40 MG TABLET PO SCH (10:05)
[2021-03-23] MEDS: METOPROLOL TARTRATE 25 MG TABLET (FP) PO SCH (10:05)
[2021-03-23] MEDS ORDERED: INSULIN SLIDING SCALE (NOVOLOG) 1 VIAL SQ ONE ×3 (11:34→21:22)
[2021-03-23] MEDS ORDERED: ENOXAPARIN NA (PORCINE) 40 MG/0.4 ML DISP.SYRIN SQ SCH (12:00)
[2021-03-23] MEDS: ENOXAPARIN NA (PORCINE) 40 MG/0.4 ML DISP.SYRIN SQ SCH (13:04)
[2021-03-23] MEDS: ATORVASTATIN CA 20 MG TABLET (FP) PO SCH (21:14)
[2021-03-23] MEDS: MONTELUKAST NA 10 MG TABLET PO SCH (22:40)
[2021-03-23 23:16] LABS: CALCIUM 8.7 mg/dl (8.5-10)
[2021-03-24] MEDS: ENOXAPARIN NA (PORCINE) 40 MG/0.4 ML DISP.SYRIN SQ SCH ×2 (00:02→12:42)
[2021-03-24] MEDS: oxyCODONE HCL 5 MG TABLET PO PRN ×3 (05:26→12:40)
[2021-03-24] MEDS: INSULIN SLIDING SCALE (NOVOLOG) 1 VIAL SQ SCH ×2 (06:02→12:48)
[2021-03-24] MEDS: glipiZIDE 10 MG TABLET (FP) PO SCH (06:03)
[2021-03-24] MEDS: metFORMIN HCL 500 MG TABLET (FP) PO SCH (06:03)
[2021-03-24 06:35] VITALS: BP 127/58; PULSE 71; TEMP 97.7
[2021-03-24 08:05] LABS: ALBUMIN 3.5 g/dl (3.4-5.0); BILIRUBIN,TOTAL 0.7 mg/dl (0.2-1); CALCIUM 8.6 mg/dl (8.5-10); CREATININE 0.9 mg/dl (0.55-1.3); MAGNESIUM 1.6 mg/dL (1.8-2.4); TOT PROT 6.7 g/dl (6.4-8.2)
[2021-03-24] MEDS ORDERED: MAGNESIUM SULF 50% (8.12 MEQ/2 ML-1 GM VIAL) IVPB ONE (08:36)
[2021-03-24] MEDS: METOPROLOL TARTRATE 25 MG TABLET (FP) PO SCH (09:00)
[2021-03-24] MEDS: MULTIVITAMINS (DAILY MVI) TABLET (FP) PO SCH (09:00)
[2021-03-24] MEDS: SERTRALINE HCL 50 MG TABLET (FP) PO SCH (09:00)
[2021-03-24] MEDS: SENNOSIDES/DOCUSATE COMBO (SENNA PLUS) TABLET (UD) PO SCH (09:00)
[2021-03-24] MEDS ORDERED: MAGNESIUM SULFATE IN WATER 2 GM/50 ML IVPB IVPB ONE (09:00)
[2021-03-24] MEDS: LOSARTAN POTASSIUM 50 MG TABLET PO SCH (09:01)
[2021-03-24] MEDS: PANTOPRAZOLE 40 MG TABLET PO SCH (09:01)
[2021-03-24] MEDS: GABAPENTIN 300 MG CAPSULE PO SCH (09:07)
[2021-03-24] MEDS ORDERED: MAGNESIUM OXIDE 400 MG TABLET (FP) PO ONE (10:30)
[2021-03-24] MEDS ORDERED: INSULIN SLIDING SCALE (NOVOLOG) 1 VIAL SQ ONE (12:47)
[2021-03-24] MEDS ORDERED: REFRIGERATED ANITBIOTICS ONE (15:12)
== END 2021-03-24 16:50 | disposition home or self-care (01) ==
LOC: FASU 09:59 → FM/S 16:43 → FASU 03-24 16:50
PROVIDERS: ATTEND Orthopaedic Surgery
PROC: 8E0Y0CZ Robotic Assisted Procedure of Lower Extremity, Open Approach (ICD-10-PCS; 2021-03-22)
PROC: 0YP90YZ Removal of Other Device from Right Lower Extremity, Open Approach (ICD-10-PCS; 2021-03-22)
PROC: 0SRC0J9 Replacement of Right Knee Joint with Synthetic Substitute, Cemented, Open Approach (ICD-10-PCS; principal; 2021-03-22 13:05)
PROC: 8E0YXBZ Computer Assisted Procedure of Lower Extremity (ICD-10-PCS; 2021-03-22 13:05)
DX: M17.31 Unilateral post-traumatic osteoarthritis, right knee (principal); T84.84XA Pain due to internal orthopedic prosthetic devices, implants and grafts, initial encounter
CPT/HCPCS: 20680; 20985; 27447; C1776; S2900; 36415; 73560-TC-RT-FY; 80048; 80053; 82962; 83735; 85027; 88300-TC; 88305-TC; 88311-TC; 94760; 97010-GP; 97116-GP; 97163-GP

== ENCOUNTER 2023-04-03 16:11 | Emergency (ER) | payer OTHER ==
[2023-04-03 16:18] VITALS: RESP 18; BMI 37.9
[2023-04-03] MEDS ORDERED: ACETAMINOPHEN 1000 MG/100 ML BAG IVPB ONE (17:25)
[2023-04-03] MEDS ORDERED: ACETAMINOPHEN INJECTION 100 ML IVPB ONE (17:29)
[2023-04-03 18:24] LABS: BASO % 0.7 % (0-2.0); EOS % 2.2 % (0-4.5); HEMATOCRIT 32.6 % (32.4-45.2); HEMOGLOBIN 10.8 GM/dL (10.7-15.3); LYMPH % 43.4 % (8-40); MCH 27.7 pg (25.7-33.7); MEAN PLT VOLUME 8.5 fl (7.5-11.1); MONO % 7.7 % (3.8-10.2); PLATELET COUNT 226 10^3/uL (134-434); RBC 3.89 M/mm3 (3.60-5.2); RDW 14.2 % (11.6-15.6); WHITE BLOOD COUNT 6.5 K/mm3 (4.0-10.0)
[2023-04-03 18:28] LABS: INR 1.7 (0.83-1.09); PROTHROMBIN TIME (PATIENT) 19.6 SEC (9.7-13.0)
[2023-04-03 18:31] LABS: ACTIVATED PTT 39.2 SECONDS (25.2-36.5)
[2023-04-03 18:40] LABS: POTASSIUM 4.9 mmol/L (3.5-5.1)
[2023-04-03 18:42] LABS: CALCIUM 9.8 mg/dL (8.5-10.1)
[2023-04-03 18:43] LABS: ALBUMIN 3.7 g/dl (3.4-5.0); BLOOD UREA NITROGEN 20.7 mg/dL (7-18)
[2023-04-03 18:46] LABS: CREATININE 1.3 mg/dL (0.55-1.3)
[2023-04-03 18:47] LABS: BILIRUBIN,TOTAL 0.4 mg/dL (0.2-1); TOT PROT 7.6 g/dl (6.4-8.2)
[2023-04-03] MEDS ORDERED: DALBAVANCIN HCL 1,500 MG in DEXTROSE 5%-WATER - 500 ML IVPB ONE (19:08)
[2023-04-03] MEDS ORDERED: DALBAVANCIN HCL 500 MG VIAL (RESTRICTED TO ID ONLY) IVPB ONE (19:14)
[2023-04-03 19:20] LABS: ERYTHROCYTE SEDIMENTATION RATE 47 mm/hr (0-30)
[2023-04-03 19:29] VITALS: BP 127/70; PULSE 60; TEMP 97.6
== END 2023-04-03 22:17 | disposition home or self-care (01) ==
LOC: JER 16:11
PROC: 3E03329 Introduction of Other Anti-infective into Peripheral Vein, Percutaneous Approach (ICD-10-PCS; principal; 2023-04-03)
PROC: 3E033NZ Introduction of Analgesics, Hypnotics, Sedatives into Peripheral Vein, Percutaneous Approach (ICD-10-PCS; 2023-04-03)
DX: R22.41 Localized swelling, mass and lump, right lower limb (principal); L03.115 Cellulitis of right lower limb
CPT/HCPCS: 36415; 73590-TC-RT-FY; 73610-TC-RT-FY; 73630-TC-RT-FY; 80053; 85025; 85610; 85651; 85730; 86140; 93971-TC; 99285-25; J0875

== ENCOUNTER 2023-10-28 12:45 | Emergency (ER) | payer OTHER ==
[2023-10-28 13:17] VITALS: BP 124/54; PULSE 63; RESP 18; TEMP 97.6; BMI 38.2
[2023-10-28] MEDS ORDERED: LIDOCAINE 5% TOPICAL PATCH TP ONE (17:05)
[2023-10-28] MEDS ORDERED: DIPHTH,PERTUSS(ACELL),TET 0.5 ML DISP.SYRIN IM ONE ×2 (17:08→17:16)
[2023-10-28] MEDS ORDERED: LIDOCAINE 4% PATCH TP ONE (17:11)
[2023-10-28] MEDS ORDERED: LIDOCAINE PATCH REMOVAL MC ONE (22:00)
== END 2023-10-28 17:29 | disposition home or self-care (01) ==
LOC: JER 12:45
PROC: 3E0234Z Introduction of Serum, Toxoid and Vaccine into Muscle, Percutaneous Approach (ICD-10-PCS; principal; 2023-10-28)
PROC: 0HQ1XZZ Repair Face Skin, External Approach (ICD-10-PCS; 2023-10-28)
DX: S01.511A Laceration without foreign body of lip, initial encounter (principal); S01.81XA Laceration without foreign body of other part of head, initial encounter; W01.0XXA Fall on same level from slipping, tripping and stumbling without subsequent striking against object, initial encounter
CPT/HCPCS: 12011-25; 70450-TC; 70486-TC; 72125-TC; 73562-TC-RT-FY; 90471; 90715; 99284-25

== ENCOUNTER 2023-12-10 19:15 | Inpatient (IN) | payer OTHER ==
[2023-12-10] MEDS: SODIUM CHLORIDE 0.9% 500 ML INFUS.BAG IV ONE (20:13)
[2023-12-10 20:23] LABS: BASO % 0.3 % (0-2.0); EOS % 0.6 % (0-4.5); HEMATOCRIT 30.3 % (32.4-45.2); HEMOGLOBIN 9.8 GM/dL (10.7-15.3); LYMPH % 34.2 % (8-40); MCH 26.7 pg (25.7-33.7); MCHC 32.5 g/dl (32.0-36.0); MEAN CELL VOLUME 82.4 fl (80-96); MEAN PLT VOLUME 8.6 fl (7.5-11.1); MONO % 6.7 % (3.8-10.2); NEUT % 58.2 % (42.8-82.8); PLATELET COUNT 264 10^3/uL (134-434); RBC 3.68 M/mm3 (3.60-5.2); RDW 16.6 % (11.6-15.6); WHITE BLOOD COUNT 9.3 K/mm3 (4.0-10.0)
[2023-12-10 20:30] LABS: VENOUS BASE EXCESS -5.1 mmol/L (-2-2); VENOUS O2 SATURATION 30.9 % (70-80); VENOUS PCO2 49.8 mmHg (38-52); VENOUS PH 7.263 (7.310-7.410)
[2023-12-10 20:38] LABS: INR 1.71 (0.83-1.09); PROTHROMBIN TIME (PATIENT) 19.7 SEC (9.7-13.0)
[2023-12-10 20:44] LABS: CHLORIDE 104 mmol/L (98-107); SODIUM 132 mmol/L (136-145)
[2023-12-10 20:45] LABS: CALCIUM 8.3 mg/dL (8.5-10.1)
[2023-12-10 20:46] LABS: ALBUMIN 3.6 g/dl (3.4-5.0); BLOOD UREA NITROGEN 28.5 mg/dL (7-18); CO2 20 mmol/L (21-32); GLUCOSE,RANDOM 359 mg/dL (74-106); MAGNESIUM 2.5 mg/dL (1.8-2.4)
[2023-12-10 20:49] LABS: CREATININE 2.6 mg/dL (0.55-1.3); SGOT/AST 98 U/L (15-37); SGPT/ALT 43 U/L (13-61)
[2023-12-10 20:51] LABS: BILIRUBIN,TOTAL 0.4 mg/dL (0.2-1); TOT PROT 7.8 g/dl (6.4-8.2)
[2023-12-10 20:52] LABS: ALK PHOS 75 U/L (45-117)
[2023-12-10 20:55] LABS: ANION GAP 8 mmol/L (4-13); POTASSIUM 7.3 mmol/L (3.5-5.1)
[2023-12-10] MEDS ORDERED: CALCIUM CHLORIDE 1 GM/10 ML *DISP.SYRIN ONE (21:00)
[2023-12-10] MEDS: CALCIUM CHLORIDE 10% 1 GM/10 ML *VIAL IVPUSH ONE (21:02)
[2023-12-10] MEDS ORDERED: CALCIUM GLUC IN NACL, ISO-OSM 1 GM/50 ML BAG IVPB ONE (21:02)
[2023-12-10] MEDS: CALCIUM GLUCONATE 10% - 1,000 MG/10 ML VIAL IVPUSH ONE (21:10)
[2023-12-10] MEDS ORDERED: ATROPINE SULFATE 1 MG/10 ML DISP.SYRIN ONE (21:21)
[2023-12-10] MEDS ORDERED: INSULIN REGULAR HUMAN 100 UNITS/ML *VIAL ONE (21:22)
[2023-12-10 21:26] LABS: POTASSIUM 5.4 mmol/L (3.5-5.1)
[2023-12-10] MEDS: INSULIN REGULAR HUMAN 100 UNITS/ML *VIAL IVPUSH ONE (21:28)
[2023-12-10] MEDS: ATROPINE SULFATE 1 MG/10 ML DISP.SYRIN IVPUSH ONE (21:29)
[2023-12-10] MEDS: CHLORHEXIDINE GLUCONATE 4% CLEANSER FOR DECOLONIZATION TP SCH (22:39)
[2023-12-10] MEDS: MUPIROCIN 2% TOPICAL OINTMENT FOR DECOLONIZATION NS SCH (22:39)
[2023-12-10] MEDS: DOPAMINE 400 MG/D5W - 400,000 MCG/250 ML INFUS.BAG IVPB SCH (22:40)
[2023-12-10] MEDS: GLUCAGON 1 MG KIT IVPUSH ONE (22:57)
[2023-12-10] MEDS: SODIUM CHLORIDE 1,000 ML IV STA (23:04)
[2023-12-10] MEDS: INSULIN ASPART SLIDING SCALE (NOVOLOG) 1 VIAL SQ SCH (23:41)
[2023-12-11 01:03] LABS: POTASSIUM 4.8 mmol/L (3.5-5.1)
[2023-12-11 01:05] LABS: ALBUMIN 3.7 g/dl (3.4-5.0); BLOOD UREA NITROGEN 26.8 mg/dL (7-18); CALCIUM 8.6 mg/dL (8.5-10.1); MAGNESIUM 2.2 mg/dL (1.8-2.4)
[2023-12-11 01:08] LABS: CREATININE 2.1 mg/dL (0.55-1.3); PHOSPHOROUS 3.4 mg/dL (2.5-4.9)
[2023-12-11 01:10] LABS: BILIRUBIN,TOTAL 0.4 mg/dL (0.2-1); TOT PROT 7.3 g/dl (6.4-8.2)
[2023-12-11 01:47] LABS: PH,URINE 5.5 (5.0-8.0); URINE APPEARANCE CLEAR; URINE BILIRUBIN NEGATIVE (NEGATIVE); URINE COLOR YELLOW; URINE GLUCOSE (UA) 3+ (NEGATIVE); URINE KETONE TRACE (NEGATIVE); URINE LEUK ESTERASE NEGATIVE (NEGATIVE); URINE NITRITE NEGATIVE (NEGATIVE); URINE PROTEIN NEGATIVE (NEGATIVE); URINE UROBILINOGEN 0.2 mg/dL (0.2-1.0)
[2023-12-11] MEDS: SODIUM CHLORIDE 1,000 ML IV SCH (06:16)
[2023-12-11 07:19] LABS: INR 1.42 (0.83-1.09); PROTHROMBIN TIME (PATIENT) 16.4 SEC (9.7-13.0)
[2023-12-11 07:21] LABS: ACTIVATED PTT 34.3 SECONDS (25.2-36.5)
[2023-12-11 07:23] LABS: BASO % 0.5 % (0-2.0); EOS % 0.5 % (0-4.5); HEMATOCRIT 28.8 % (32.4-45.2); HEMOGLOBIN 9.3 GM/dL (10.7-15.3); LYMPH % 38.7 % (8-40); MCH 26.7 pg (25.7-33.7); MCHC 32.4 g/dl (32.0-36.0); MEAN CELL VOLUME 82.4 fl (80-96); MEAN PLT VOLUME 8.9 fl (7.5-11.1); MONO % 6.5 % (3.8-10.2); NEUT % 53.8 % (42.8-82.8); PLATELET COUNT 217 10^3/uL (134-434); RBC 3.49 M/mm3 (3.60-5.2); RDW 15.9 % (11.6-15.6); WHITE BLOOD COUNT 7.8 K/mm3 (4.0-10.0)
[2023-12-11] MEDS: INSULIN (NOVOLOG) ASPART 100 UNITS/ML 10ML VIAL SQ ONE (08:08)
[2023-12-11 08:23] LABS: CALCIUM 9.1 mg/dL (8.5-10.1)
[2023-12-11 08:24] LABS: ALBUMIN 3.5 g/dl (3.4-5.0); BLOOD UREA NITROGEN 24.4 mg/dL (7-18); CREATININE 1.6 mg/dL (0.55-1.3); MAGNESIUM 2.7 mg/dL (1.8-2.4)
[2023-12-11 08:26] LABS: TOT PROT 7.2 g/dl (6.4-8.2)
[2023-12-11 08:30] LABS: BILIRUBIN,TOTAL 0.4 mg/dL (0.2-1)
[2023-12-11] MEDS: PANTOPRAZOLE SODIUM 40 MG VIAL IVPUSH SCH (10:08)
[2023-12-11] MEDS: POLYETHYLENE GLYCOL (HEALTHYLAX) 3350 17 GM PACKET PO SCH (10:08)
[2023-12-11] MEDS: SODIUM CHLORIDE 0.45% 1,000 ML IV SCH (13:34)
[2023-12-11] MEDS: ACETAMINOPHEN 325 MG TABLET (FP) PO PRN (21:34)
[2023-12-11] MEDS: MELATONIN 5 MG TABLETS PO ONE (21:34)
[2023-12-11] MEDS: SENNOSIDES 8.8 MG/5 ML SYRUP PO SCH (21:35)
[2023-12-11] MEDS: RIVAROXABAN 10 MG TABLET PO SCH (21:35)
[2023-12-12] MEDS: hydrALAZINE HCL 20 MG/ML VIAL IVPUSH PRN (03:03)
[2023-12-12 07:38] LABS: CALCIUM 9.6 mg/dL (8.5-10.1)
[2023-12-12 07:39] LABS: ALBUMIN 3.3 g/dl (3.4-5.0); BLOOD UREA NITROGEN 11.8 mg/dL (7-18)
[2023-12-12 07:41] LABS: MAGNESIUM 1.6 mg/dL (1.8-2.4)
[2023-12-12 07:43] LABS: BILIRUBIN,TOTAL 0.6 mg/dL (0.2-1); TOT PROT 7.3 g/dl (6.4-8.2)
[2023-12-12 07:44] LABS: HEMATOCRIT 29.1 % (32.4-45.2); HEMOGLOBIN 9.8 GM/dL (10.7-15.3); MCH 27.2 pg (25.7-33.7); MCHC 33.6 g/dl (32.0-36.0); MEAN CELL VOLUME 81.1 fl (80-96); MEAN PLT VOLUME 8.9 fl (7.5-11.1); PLATELET COUNT 225 10^3/uL (134-434); RBC 3.59 M/mm3 (3.60-5.2); RDW 15.9 % (11.6-15.6); WHITE BLOOD COUNT 7.3 K/mm3 (4.0-10.0)
[2023-12-12 07:47] LABS: CHOLESTEROL 126 mg/dL (50-200)
[2023-12-12 07:49] LABS: LDL CHOLESTEROL (ONLY SJRH) 50 mg/dL (5-100)
[2023-12-12 07:50] LABS: HDL CHOLESTEROL 60 mg/dL (40-60)
[2023-12-12 07:55] LABS: CREATININE 1.1 mg/dL (0.55-1.3); PHOSPHOROUS 2.6 mg/dL (2.5-4.9)
[2023-12-12] MEDS: MAGNESIUM SULF 50% (8.12 MEQ/2 ML-1 GM VIAL) IVPB ONE (09:34)
[2023-12-12] MEDS ORDERED: ALBUTEROL SO4 HFA INHALER IH PRN (09:37)
[2023-12-12] MEDS: amLODIPine BESYLATE 5 MG TABLET (FP) PO SCH (10:05)
[2023-12-12] MEDS: GABAPENTIN 300 MG CAPSULE PO SCH (10:05)
[2023-12-12] MEDS: PANTOPRAZOLE 40 MG TABLET PO SCH (10:05)
[2023-12-12] MEDS: ACETAMINOPHEN/CAFFEINE/BUTALBITAL 1 TAB PO ONE (11:02)
[2023-12-12] MEDS ORDERED: INSULIN (NOVOLOG) ASPART 100 UNITS/ML 10ML VIAL ONE (12:27)
[2023-12-12] MEDS: SERTRALINE HCL 50 MG TABLET (FP) PO SCH (12:34)
[2023-12-12 15:46] VITALS: BMI 38.4
[2023-12-12] MEDS: MONTELUKAST NA 10 MG TABLET PO SCH (22:05)
[2023-12-12] MEDS: ATORVASTATIN CA 20 MG TABLET (FP) PO SCH (22:05)
[2023-12-12] MEDS ORDERED: SODIUM CHLORIDE 1,000 ML IV SCH (23:00)
[2023-12-13] MEDS ORDERED: ALBUTEROL SO4 HFA INHALER IH PRN (08:44)
[2023-12-13] MEDS ORDERED: ACETAMINOPHEN 325 MG TABLET (FP) PO PRN (08:44)
[2023-12-13] MEDS: POLYETHYLENE GLYCOL (HEALTHYLAX) 3350 17 GM PACKET PO SCH (09:42)
[2023-12-13] MEDS: RIVAROXABAN 10 MG TABLET PO SCH (09:43)
[2023-12-13] MEDS: amLODIPine BESYLATE 5 MG TABLET (FP) PO SCH (09:43)
[2023-12-13] MEDS: GABAPENTIN 300 MG CAPSULE PO SCH (09:44)
[2023-12-13] MEDS: MUPIROCIN 2% TOPICAL OINTMENT FOR DECOLONIZATION NS SCH (09:44)
[2023-12-13 11:54] LABS: POTASSIUM 4.5 mmol/L (3.5-5.1)
[2023-12-13 11:58] LABS: BLOOD UREA NITROGEN 11.1 mg/dL (7-18)
[2023-12-13] MEDS ORDERED: INSULIN (NOVOLOG) ASPART 100 UNITS/ML 10ML VIAL ONE (12:16)
[2023-12-13] MEDS: ISOSORBIDE MONONITRATE 30 MG TAB.SR.24H (FP) PO SCH (12:18)
[2023-12-13] MEDS: FAMOTIDINE 20 MG TABLET PO ONE (12:19)
[2023-12-13] MEDS: INSULIN ASPART SLIDING SCALE (NOVOLOG) 1 VIAL SQ SCH (12:19)
[2023-12-13 16:15] VITALS: RESP 20
[2023-12-13 18:21] VITALS: BP 126/88; PULSE 88; TEMP 97.8
[2023-12-13] MEDS ORDERED: ATORVASTATIN CA 20 MG TABLET (FP) PO SCH (22:00)
[2023-12-13] MEDS ORDERED: SENNOSIDES 8.8 MG/5 ML SYRUP PO SCH (22:00)
[2023-12-13] MEDS ORDERED: MONTELUKAST NA 10 MG TABLET PO SCH (22:00)
[2023-12-13] MEDS ORDERED: CHLORHEXIDINE GLUCONATE 4% CLEANSER FOR DECOLONIZATION TP SCH (22:00)
== END 2023-12-13 18:30 | disposition home or self-care (01) | DRG 201 ==
LOC: JER 19:15 → JERBED 21:38 → JICU 22:03 → J2W 12-12 22:21
PROVIDERS: ADMIT Internal Medicine Pulmonary Disease; ATTEND Internal Medicine
DX: I45.5 Other specified heart block (principal); N17.9 Acute kidney failure, unspecified; E11.65 Type 2 diabetes mellitus with hyperglycemia; E87.5 Hyperkalemia; I95.9 Hypotension, unspecified; E78.5 Hyperlipidemia, unspecified; I10 Essential (primary) hypertension; J45.909 Unspecified asthma, uncomplicated; T44.7X5A Adverse effect of beta-adrenoreceptor antagonists, initial encounter; T46.1X5A Adverse effect of calcium-channel blockers, initial encounter; Z90.5 Acquired absence of kidney; I48.91 Unspecified atrial fibrillation; R00.1 Bradycardia, unspecified; X58.XXXA Exposure to other specified factors, initial encounter; Y93.9 Activity, unspecified; Y92.9 Unspecified place or not applicable; E66.9 Obesity, unspecified; Z68.36 Body mass index [BMI] 36.0-36.9, adult
CPT/HCPCS: 0241U-QW; 36415; 71045-TC-FY; 71250-TC; 74176-TC; 80048; 80053; 80061; 81003; 82010; 82570; 82803; 82962; 83605; 83735; 83880; 84100; 84132; 84300; 84439; 84443; 84484; 85025; 85027; 85610; 85730; 86850; 86900; 86901; 87040; 87086; 87651; 93005; 93010; 93306-TC; 94010; 94660; 99285-25

== ENCOUNTER 2024-07-29 04:13 | Day surgery (SDC) | payer OTHER ==
[2024-07-21 13:07] VITALS: BMI 38.1
[2024-07-29] MEDS ORDERED: ALBUTEROL SO4 HFA INHALER IH ONE (08:01)
[2024-07-29 09:01] VITALS: RESP 18; TEMP 98.5
[2024-07-29 09:35] VITALS: BP 132/63; PULSE 66
== END 2024-07-29 09:35 | disposition home or self-care (01) ==
LOC: JASU-ENDO 04:13
PROVIDERS: ATTEND Internal Medicine Gastroenterology
PROC: 0DB38ZX Excision of Lower Esophagus, Via Natural or Artificial Opening Endoscopic, Diagnostic (ICD-10-PCS; 2024-07-29)
PROC: 0DB28ZX Excision of Middle Esophagus, Via Natural or Artificial Opening Endoscopic, Diagnostic (ICD-10-PCS; 2024-07-29)
PROC: 0DBH8ZX Excision of Cecum, Via Natural or Artificial Opening Endoscopic, Diagnostic (ICD-10-PCS; principal; 2024-07-29 08:00)
DX: K51.40 Inflammatory polyps of colon without complications (principal); K63.5 Polyp of colon; K64.8 Other hemorrhoids; K21.00 Gastro-esophageal reflux disease with esophagitis, without bleeding; R13.10 Dysphagia, unspecified
CPT/HCPCS: 82962; 88305-TC